=== PATIENT | female | born 1940 | race Caucasian/White ===

== ENCOUNTER → 2016-03-23 | Outpatient (CLI) | payer BC ==
[~2016-03-23] MED LIST: ASPI81TA28 PO; ASPI81TA57 PO; BECL0.072 INH; BRL90 PO; CETI10TA84 PO; CHOL20005 PO; CHOL20007 PO; CIPR-255 PO; COEN1CAP17 PO; COEN1CAP7 PO; COEN400C3; CZR25 PO; DEXT30TA7 PO; EZET10TA66 PO; GING1CAP2 PO; LEVO25TA PO; LEVO25TA5 PO; LEVO50TA6 PO; LISI-729 PO; LOSA1TAB PO; METO1TAB31 PO; METO25TA56 PO; METR-162 PO; MISC1TAB34 PO; NRN100 PO; NTRGSL/4 UT; NUTRTAB40; NUTRTAB40 PO; OMEG10007 PO; OMEG12006 PO; OMEP20CA9 PO; ONDA4TAB10 SL; POLY335019 PO; PRLSR20 PO; PRM/3 PO; RANI300C PO; SYMIN160 INH; TPRSR/25 PO; [UNRECOGNIZED DRUG - OTHER] PO; instaflex; instaflex PO
[2016-03-23 18:05] LABS: CHOLESTEROL/HDL RATIO 4.3; THYROID STIMULATING HORMONE 1.03 uIu/ml (0.300-4.500)
== END | disposition home or self-care (01) ==
LOC: C.LABBC 13:05
PROVIDERS: ATTEND Internal Medicine Geriatric Medicine
DX: I25.10 Atherosclerotic heart disease of native coronary artery without angina pectoris (principal); E03.9 Hypothyroidism, unspecified

== ENCOUNTER 2016-04-01 05:35 | Observation (INO) | payer BC ==
[~2016-04-01] VITALS: Ht 162.6 cm; Wt 88.5 kg
[~2016-04-01 05:35] MED LIST changes: -ASPI81TA28 PO; -CHOL20005 PO; -CIPR-255 PO; -COEN1CAP17 PO; -COEN400C3; -CZR25 PO; -EZET10TA66 PO; -GING1CAP2 PO; -LEVO25TA5 PO; -LEVO50TA6 PO; -LOSA1TAB PO; -METO1TAB31 PO; -METR-162 PO; -MISC1TAB34 PO; -NRN100 PO; -NTRGSL/4 UT; -NUTRTAB40; -NUTRTAB40 PO; -OMEG12006 PO; -ONDA4TAB10 SL; -POLY335019 PO; -PRLSR20 PO; -RANI300C PO; -SYMIN160 INH; -TPRSR/25 PO; -[UNRECOGNIZED DRUG - OTHER] PO; -instaflex
[2016-04-01 05:56] LABS: BASO % 0.8 %; BASO ABS # 0.06 K/uL (0-0.2); COMPLETE YES; EOS % 4.8 %; HEMATOCRIT 35.2 % (37-47); IG% 0.3 %; LYMPH % 33.6 %; LYMPH ABS # 2.43 K/uL (1.2-3.4); MEAN CELL VOLUME 82.6 fL (80-100); MEAN CORPUSCULAR HEMOGLOBIN 26.8 pg (25-34); MEAN CORPUSCULAR HGB CONC 32.4 g/dl (32-36); MEAN PLATELET VOLUME 9.7 fL (7.4-10.4); MONO % 9.3 %; NEUT % 51.2 %; PLATELET COUNT 264 K/uL (130-400); RED BLOOD COUNT 4.26 M/uL (4.2-5.4); WHITE BLOOD COUNT 7.23 K/uL (4.8-10.8)
[2016-04-01] MEDS ORDERED: COEN1CAP17 PO (05:56)
[2016-04-01] MEDS ORDERED: CZR25 PO (05:59)
[2016-04-01] MEDS ORDERED: LEVO50TA6 PO (05:59)
[2016-04-01] MEDS ORDERED: RANI300C PO (06:01)
[2016-04-01] MEDS ORDERED: TPRSR/25 PO (06:01)
[2016-04-01] MEDS ORDERED: EZET10TA66 PO (06:02)
[2016-04-01] MEDS ORDERED: NTRGSL/4 UT (06:03)
[2016-04-01] MEDS ORDERED: CHOL20007 PO (06:04)
[2016-04-01] MEDS ORDERED: NRN100 PO (06:06)
[2016-04-01] MEDS ORDERED: POLY335019 PO (06:06)
[2016-04-01] MEDS ORDERED: SYMIN160 INH (06:06)
[2016-04-01 06:10] LABS: BLOOD UREA NITROGEN 19 mg/dl (7-18); CALCIUM 8.9 mg/dl (8.5-10.1); CARBON DIOXIDE 26 mmol/L (21-32); CHLORIDE 108 mmol/L (98-107); GLUCOSE 101 mg/dl (70-99); POTASSIUM 3.6 mmol/L (3.5-5.1); SODIUM 143 mmol/L (136-145)
[2016-04-01 06:14] LABS: CKMB/CK RATIO 0.9 (0-3.0)
--- NOTE | 2016-04-01 06:54 | EMERGENCY ROOM VISIT NOTE ---
History Report prepared by Annibpapito: Wayne Hairston Under the Supervision of: Dr. Clyde Starkey M.D. First contact with patient: 05:36 Chief Complaint: CHEST PAIN Stated Complaint: CHEST PAIN History of Present Illness The patient is a 75 year old female who presents to the Emergency Room by EMS with complaints of resolved chest pain beginning shortly prior to arrival. Per nursing staff, the patient woke up from her sleep with a "heaviness" in her sternum area. The patient has a history of similar chest pain occurring with her previous heart attack. Her previous heart attack occurred about six months ago. She was given aspirin and nitroglycerin en route which improved her symptoms. The patient denies any heart palpitations, black or bloody stool, or SOB. She denies any recent injuries. She states that she may have passed out from her pain as well. Source of History: patient, nursing staff Onset: Shortly prior to arrival Position: chest (sternal area) Quality: other ("heaviness") Timing: resolved Modifying Factors (Relieving): other (nitroglycerin) Associated Symptoms: No SOB, No hematochezia, No melena Note: The patient denies any heart palpitations. Review of Systems See HPI for pertinent positives & negatives. A total of 10 systems reviewed and were otherwise negative. Past Medical & Surgical Medical Problems: (1) Acute bronchitis (2) Herpes Zoster Nos (3) Hyperlipidemia Nec/Nos (4) Hypertension Nos (5) Hypothyroidism Nos (6) NSTEMI (non-ST elevated myocardial infarction) Family History No pertinent family history stated. Social History Smoking Status: Never Smoker Alcohol Use: none Marital Status: , in relationship Occupation Status: retired Current/Historical Medications Scheduled Budesonide/Formoterol Fumarate (Symbicort 160/4.5 Inhaler ), 2 PUFFS INH BID Cholecalciferol (Vitamin D3), 2,000 UNIT PO BID Coenzyme Q10 (Ubidecarenone) (Co Q 10), 100 MG PO BID Ezetimibe (Ezetimibe), 10 MG PO DAILY Fish Oil ([place]-3), 1,000 MG PO QAM Gabapentin (Gabapentin), 100 MG PO HS Levothyroxine Sodium (Levothyroxine Sodium), 50 MG PO QAM Losartan Potassium (Losartan Potassium), 25 MG PO QAM Metoprolol Succinate (Metoprolol Succinate ER), 25 MG PO DAILY Polyethylene Glycol 3350 (Miralax), 17 GM PO DAILY Ranitidine Hcl (Ranitidine Hcl), 300 MG PO BID Ticagrelor (Brilinta), 90 MG PO BID Scheduled PRN Nitroglycerin (Nitrostat), 0.4 MG UT UD PRN for Chest Pain Allergies Coded Allergies: Clarithromycin (Verified Allergy, Severe, NAUSEA, 04/01/16) Iodinated Diagnostic Agents (Verified Allergy, Unknown, ., 04/01/16) Statins (Verified Allergy, Unknown, UNSURE, 04/01/16) Physical Exam Vital Signs Date Time Temp Pulse Resp B/P Pulse Ox O2 Delivery O2 Flow Rate FiO2 04/01/16 07:16 61 04/01/16 06:47 59 18 108/49 99 Room Air 04/01/16 06:27 60 18 120/63 100 Room Air 04/01/16 05:42 63 04/01/16 05:35 Room Air 04/01/16 05:35 36.4 64 20 115/64 96 Room Air Physical Exam GENERAL: Patient is well appearing and in no acute distress. HEENT: No acute trauma, normocephalic atraumatic, mucous membranes moist, no nasal congestion, no scleral icterus. NECK: No stridor, no adenopathy, no meningismus, trachea is midline. LUNGS: No dyspnea. Clear to auscultation and equal bilaterally. No wheeze, no rhonchi. HEART: Regular rate and rhythm. No murmurs, rubs, gallops appreciated. ABDOMEN: Soft, nontender, bowel sounds positive, no masses appreciated, no peritonitis. BACK: No midline tenderness, no CVA tenderness EXTREMITIES: Normal motion all extremities, no cyanosis, no edema. NEUROLOGIC: Alert and oriented, no acute motor or sensory deficits, no focal weakness, cranial nerves grossly intact. SKIN: No rash, no jaundice, no diaphoresis. Medical Decision & Procedures ER Provider Diagnostic Interpretation: X ray results are stated below per my interpretation: Chest: 1 view: No infiltrate, no effusion, normal cardiac border. Unchanged from previous. CT results per statrad and my review. CT HEAD: No acute intracranial abnormality. Tiny fluid level in the right maxillary sinus. Mastoid air cells are clear. Laboratory Results 04/01/16 05:07 Red Blood Count 4.26, Mean Corpuscular Volume 82.6, Mean Corpuscular Hemoglobin 26.8, Mean Corpuscular Hemoglobin Concent 32.4, Mean Platelet Volume 9.7, Neutrophils (%) (Auto) 51.2, Lymphocytes (%) (Auto) 33.6, Monocytes (%) (Auto) 9.3, Eosinophils (%) (Auto) 4.8, Basophils (%) (Auto) 0.8, Neutrophils # (Auto) 3.70, Lymphocytes # (Auto) 2.43, Monocytes # (Auto) 0.67, Eosinophils # (Auto) 0.35, Basophils # (Auto) 0.06 04/01/16 05:07 Test 04/01/16 05:07 White Blood Count 7.23 K/uL (4.8-10.8) Red Blood Count 4.26 M/uL (4.2-5.4) Hemoglobin 11.4 g/dL (12.0-16.0) Hematocrit 35.2 % (37-47) Mean Corpuscular Volume 82.6 fL (80-100) Mean Corpuscular Hemoglobin 26.8 pg (25-34) Mean Corpuscular Hemoglobin Concent 32.4 g/dl (32-36) Platelet Count 264 K/uL (130-400) Mean Platelet Volume 9.7 fL (7.4-10.4) Neutrophils (%) (Auto) 51.2 % Lymphocytes (%) (Auto) 33.6 % Monocytes (%) (Auto) 9.3 % Eosinophils (%) (Auto) 4.8 % Basophils (%) (Auto) 0.8 % Neutrophils # (Auto) 3.70 K/uL (1.4-6.5) Lymphocytes # (Auto) 2.43 K/uL (1.2-3.4) Monocytes # (Auto) 0.67 K/uL (0.11-0.59) Eosinophils # (Auto) 0.35 K/uL (0-0.5) Basophils # (Auto) 0.06 K/uL (0-0.2) RDW Standard Deviation 45.1 fL (36.4-46.3) RDW Coefficient of Variation 15.0 % (11.5-14.5) Immature Granulocyte % (Auto) 0.3 % Immature Granulocyte # (Auto) 0.02 K/uL (0.00-0.02) Anion Gap 9.0 mmol/L (3-11) Est Creatinine Clear Calc Drug Dose 46.1 ml/min Estimated GFR () 56.1 Estimated GFR (Non- 48.4 BUN/Creatinine Ratio 17.0 (10-20) Calcium Level 8.9 mg/dl (8.5-10.1) Total Creatine Kinase 55 U/L (26-192) Creatine Kinase MB 0.5 ng/ml (0.5-3.6) Creatine Kinase MB Ratio 0.9 (0-3.0) Troponin I < 0.015 ng/ml (0-0.045) ECG Indication: chest pain Rate (beats per minute): 58 Rhythm: sinus bradycardia Findings: no acute ischemic change, no ectopy ED Course 0537: The patient was evaluated in room B7. A complete history and physical exam was performed. 0603: I reassessed the patient. She is complaining of a mild headache. We discussed the prospect of getting a CT and she verbalized agreement. 0715: Upon reevaluation, the patient is resting comfortably. Discussed results and treatment plan with the patient. She verbalized understanding and agreement with the treatment plan. The patient will be evaluated for further management. Medical Decision Differential: Cardiac Ischemia (STEMI, NSTEMI, Unstable Angina, etc), Aortic Dissection, Arrhythmia, Pulmonary Embolism, Pneumonia, Pneumothorax, MSK, Infectious, Pericarditis/Myocarditis, Esophageal Rupture, Gastrointestinal, amongst other pathologies entertained. 75 yr old female with history of cardiac stents last summer for NE arrives following episode of chest pressure and brief syncopal event. Symptoms resolved by arrival after SLNTG and ASA. She is feeling well currently without further symptoms. CXR looks OK. CT head negative. EKG looks good. Trop negative. Given high cardiac risk factors will need cardiac rule out. Stable and in no distress throughout ED stay. No evidence of PE, dissection, gi cause , infection, nor other acute cause. Consults Time Called: 704 Consulting Physician: Citlalli Collins Physician Hospitalist Returned Call: 0715 Discussed the patient's case. The patient will be evaluated for further treatment and disposition. Impression Primary Impression: Substernal precordial chest pain Additional Impressions: History of NE (myocardial infarction) Syncope Scribe Attestation The scribe's documentation has been prepared under my direction and personally reviewed by me in its entirety. I confirm that the note above accurately reflects all work, treatment, procedures, and medical decision making performed by me. Departure Information Dispostion Being Evaluated By Hospitalist Referrals Murali Kolb M.D. (PCP) Patient Instructions My [facility] Problem Qualifiers Additional Impressions: Syncope Syncope type: unspecified Qualified Codes: R55 - Syncope and collapse
--- NOTE | 2016-04-01 07:04 | DIAGNOSTIC IMAGING REPORT ---
CT SCAN OF THE BRAIN WITHOUT IV CONTRAST CLINICAL HISTORY: Syncope. COMPARISON STUDY: CT of the brain dated 05/28/2007. TECHNIQUE: Unenhanced axial CT scan of the brain is performed from the vertex to the skull base. CT DOSE: 537.48 mGy.cm FINDINGS: Brain parenchyma: There are age-related involutional changes noting mild subcortical and periventricular microangiopathic change. There is no hemorrhage, mass effect, or evidence of acute territorial ischemia by CT criteria. Castillo-white matter is preserved. No extra-axial fluid collection is seen. Ventricles, sulci, cisterns: Prominent secondary to involutional change. Intracranial vasculature: There is atherosclerotic calcification of the cavernous carotid arteries. Calvarium: The skeletal structures are osteopenic. No depressed calvarial fracture is seen. Sinuses and mastoids: There is evidence of previous paranasal sinus surgery. Mucosal thickening is present within the maxillary antra, noting an air-fluid level in the right. There is also fluid within the sphenoid sinuses. Trace mucosal thickening seen within the ethmoid resection cavity. The mastoid air cells are well pneumatized. Orbits: The bony orbits are grossly intact. IMPRESSION: 1. There is no hemorrhage, mass effect, or evidence of acute territorial ischemia by CT criteria. 2. Paranasal sinus disease as above. Electronically signed by: Velasquez Escobar M.D. 04/01/2016 7:03 AM Dictated Date/Time: 04/01/2016 7:01 AM
--- NOTE | 2016-04-01 07:06 | DIAGNOSTIC IMAGING REPORT ---
SINGLE VIEW CHEST CLINICAL HISTORY: Atypical chest pain. FINDINGS: An AP, portable, upright chest radiograph is compared to study dated 11/12/2015 and correlated with chest CT dated 05/23/2014. The examination is degraded by portable technique, apical lordotic positioning, and patient rotation. The heart is mildly enlarged. The pulmonary vasculature is noncongested. Mild atherosclerotic calcification is noted in the thoracic aorta. A hiatal hernia is observed. There is chronic interstitial thickening and bibasilar atelectasis. No airspace consolidation, large pleural effusion, or pneumothorax is seen. The skeletal structures are osteopenic. Degenerative change and scoliosis are noted in the thoracic spine. IMPRESSION: Cardiomegaly with no acute cardiopulmonary abnormality. Electronically signed by: Velasquez Escobar M.D. 04/01/2016 7:04 AM Dictated Date/Time: 04/01/2016 7:03 AM
[2016-04-01 07:26] VITALS: O2SAT 99; Ht 162.6 cm; Wt 88.5 kg
[2016-04-01] MEDS ORDERED: ACETAMINOPHEN 325 MG TAB PO PRN (07:30)
[2016-04-01] MEDS ORDERED: ONDANSETRON INJ 2 MG/ML 2 ML VIAL IV PRN (07:30)
[2016-04-01] MEDS ORDERED: POLYETHYLENE (MIRALAX) 17 GM PACK PO PRN (07:30)
[2016-04-01] MEDS ORDERED: NITROGLYCERIN 0.4 MG SL PER TAB CHARGE SL PRN (07:30)
[2016-04-01] MEDS ORDERED: MAGNESIUM HYDROXIDE SUSP 30 ML UDC PO PRN (07:30)
[2016-04-01] MEDS ORDERED: ALUMINUM/MAGNESIUM/SIMETH (MAALOX MAX) 30 ML UDC PO PRN (07:30)
[2016-04-01 07:55] VITALS: O2SAT 99
--- NOTE | 2016-04-01 08:13 | History and Physical ---
History & Physical Date & Time of Service: Apr 01, 2016 at 07:55 Chief Complaint: Chest Pain Primary Care Physician: Murali Kolb M.D. History of Present Illness Source: patient, family, hospital records This patient is a 75-year-old female that presents the emergency department complaining of a chest heaviness that started around 3 AM this morning. It has been fairly constant. She notes that it radiates to both of her shoulders. Currently, the patient is having discomfort in her left shoulder. She does note occasional shortness of breath. During the night when she was having pain , she also notes diffuse sweating and dizziness. She also reports having a short syncopal episode where she slumped over at the table. This was witnessed by the . She did not actually fall. No injuries were sustained. The dizziness has subsided. The patient has a history of coronary artery disease and had 1 stent placed in September 2015 at [facility]. She follows with Dr. Fabian locally. Past Medical/Surgical History Medical Problems: Coronary artery disease OK in 09/2015-1 stent placed (1) Acute bronchitis Status: Resolved (2) Herpes Zoster Nos Status: Chronic (3) Hyperlipidemia Nec/Nos Status: Chronic (4) Hypertension Nos Status: Chronic (5) Hypothyroidism Nos Status: Chronic Family History FH: cancer FH: heart disease FH: stroke FATHER Hypertension Social History Smoking Status: Never Smoker Alcohol Use: none Marital Status: , in relationship Housing status: lives with significant other Occupational Status: retired Immunizations History of Influenza Vaccine: N/A History of Tetanus Vaccine?: Unknown History of Pneumococcal: No History of Hepatitis B Vaccine: No Multi-Drug Resistant Organisms History of MDRO: No Allergies Coded Allergies: Clarithromycin (Verified Allergy, Severe, NAUSEA, 04/01/16) Iodinated Diagnostic Agents (Verified Allergy, Unknown, ., 04/01/16) Statins (Verified Allergy, Unknown, UNSURE, 04/01/16) Home Medications Scheduled Budesonide/Formoterol Fumarate (Symbicort 160/4.5 Inhaler ), 2 PUFFS INH BID Cholecalciferol (Vitamin D3), 2,000 UNIT PO BID Coenzyme Q10 (Ubidecarenone) (Co Q 10), 100 MG PO BID Ezetimibe (Ezetimibe), 10 MG PO DAILY Fish Oil ([place]-3), 1,000 MG PO QAM Gabapentin (Gabapentin), 100 MG PO HS Levothyroxine Sodium (Levothyroxine Sodium), 50 MG PO QAM Losartan Potassium (Losartan Potassium), 25 MG PO QAM Metoprolol Succinate (Metoprolol Succinate ER), 25 MG PO DAILY Polyethylene Glycol 3350 (Miralax), 17 GM PO DAILY Ranitidine Hcl (Ranitidine Hcl), 300 MG PO BID Ticagrelor (Brilinta), 90 MG PO BID Scheduled PRN Nitroglycerin (Nitrostat), 0.4 MG UT UD PRN for Chest Pain Review of Systems 10 system review performed and negative unless noted in HPI or below Physical Exam Vital Signs Date Time Temp Pulse Resp B/P Pulse Ox O2 Delivery O2 Flow Rate FiO2 04/01/16 07:26 99 Room Air 04/01/16 07:16 61 04/01/16 06:47 59 18 108/49 99 Room Air 04/01/16 06:27 60 18 120/63 100 Room Air 04/01/16 05:42 63 04/01/16 05:35 Room Air 04/01/16 05:35 36.4 64 20 115/64 96 Room Air General Appearance: no apparent distress Head: normocephalic Eyes: EOMI Neck: no JVD Respiratory/Chest: lungs clear Cardiovascular: + bradycardia Abdomen/GI: normal bowel sounds, non tender, soft Extremities/Musculoskelatal: no calf tenderness, no pedal edema Neurologic/Psych: no motor/sensory deficits, oriented x 3 Skin: no rash Diagnostics Laboratory Results Results Past 24 Hours Test 04/01/16 05:07 Range/Units White Blood Count 7.23 4.8-10.8 K/uL Red Blood Count 4.26 4.2-5.4 M/uL Hemoglobin 11.4 12.0-16.0 g/dL Hematocrit 35.2 37-47 % Mean Corpuscular Volume 82.6 80-100 fL Mean Corpuscular Hemoglobin 26.8 25-34 pg Mean Corpuscular Hemoglobin Concent 32.4 32-36 g/dl Platelet Count 264 130-400 K/uL Mean Platelet Volume 9.7 7.4-10.4 fL Neutrophils (%) (Auto) 51.2 % Lymphocytes (%) (Auto) 33.6 % Monocytes (%) (Auto) 9.3 % Eosinophils (%) (Auto) 4.8 % Basophils (%) (Auto) 0.8 % Neutrophils # (Auto) 3.70 1.4-6.5 K/uL Lymphocytes # (Auto) 2.43 1.2-3.4 K/uL Monocytes # (Auto) 0.67 0.11-0.59 K/uL Eosinophils # (Auto) 0.35 0-0.5 K/uL Basophils # (Auto) 0.06 0-0.2 K/uL RDW Standard Deviation 45.1 36.4-46.3 fL RDW Coefficient of Variation 15.0 11.5-14.5 % Immature Granulocyte % (Auto) 0.3 % Immature Granulocyte # (Auto) 0.02 0.00-0.02 K/uL Sodium Level 143 136-145 mmol/L Potassium Level 3.6 3.5-5.1 mmol/L Chloride Level 108 98-107 mmol/L Carbon Dioxide Level 26 21-32 mmol/L Anion Gap 9.0 3-11 mmol/L Blood Urea Nitrogen 19 7-18 mg/dl Creatinine 1.10 0.60-1.20 mg/dl Est Creatinine Clear Calc Drug Dose 46.1 ml/min Estimated GFR () 56.1 Estimated GFR (Non- 48.4 BUN/Creatinine Ratio 17.0 10-20 Random Glucose 101 70-99 mg/dl Calcium Level 8.9 8.5-10.1 mg/dl Total Creatine Kinase 55 26-192 U/L Creatine Kinase MB 0.5 0.5-3.6 ng/ml Creatine Kinase MB Ratio 0.9 0-3.0 Troponin I < 0.015 0-0.045 ng/ml Diagnostic Radiology Patient Name: DAVI MONTELONGO Unit Number: [id number] Dictated: 04/01/16700 Transcribed: 04/01/16700 EV Printed Date/Time: [~ rep prt dt]/[~ rep prt tm] [~ rep ct labl] - [~ rep ct ivnm] [facility] [place] [address] Dictated: 04/01/16700 Transcribed: 04/01/16700 EV Printed Date/Time: [~ rep prt dt]/[~ rep prt tm] [~ rep ct labl] - [~ rep ct ivnm] Patient: DAVI MONTELONGO Address1: [address] [facility] Rec: [id number] Address2: [facility] [address] Acct ID: [id number] [facility] Zip: [place] [address] Date: 1940 Sex: F Room/Bed: Ref Phy: Murali Kolb M.D. SC: SOFY Att Phy: Report #: [id number] Inga Phy: Murali Kolb M.D. Test: HWO Admit Phy: Simulation Analyst: ALISIA Interpreting Phy: Velasquez Escobar M.D. Diagnosis: CHEST PAIN Ordering Phy: Clyde Starkey M.D. Service Date: 04/01/16 Admit Date: 04/01/16 MNE: [id number] CONF: DICTATED BY: Velasquez Escobar M.D.]] CC: Murali Kolb M.D. McKinley, Daniel F., M.D. Endcc: [~ rep ct add3]] CT SCAN OF THE BRAIN WITHOUT IV CONTRAST CLINICAL HISTORY: Syncope. COMPARISON STUDY: CT of the brain dated 05/28/2007. TECHNIQUE: Unenhanced axial CT scan of the brain is performed from the vertex to the skull base. CT DOSE: 537.48 mGy.cm FINDINGS: Brain parenchyma: There are age-related involutional changes noting mild subcortical and periventricular microangiopathic change. There is no hemorrhage, mass effect, or evidence of acute territorial ischemia by CT criteria. Castillo-white matter is preserved. No extra-axial fluid collection is seen. Ventricles, sulci, cisterns: Prominent secondary to involutional change. Intracranial vasculature: There is atherosclerotic calcification of the cavernous carotid arteries. Calvarium: The skeletal structures are osteopenic. No depressed calvarial fracture is seen. Sinuses and mastoids: There is evidence of previous paranasal sinus surgery. Mucosal thickening is present within the maxillary antra, noting an air-fluid level in the right. There is also fluid within the sphenoid sinuses. Trace mucosal thickening seen within the ethmoid resection cavity. The mastoid air cells are well pneumatized. Orbits: The bony orbits are grossly intact. IMPRESSION: 1. There is no hemorrhage, mass effect, or evidence of acute territorial ischemia by CT criteria. 2. Paranasal sinus disease as above. Electronically signed by: Velsaquez Escobar M.D. 04/01/2016 7:03 AM Dictated Date/Time: 04/01/2016 7:01 AM The status of this report is Signed. Draft = Not yet reviewed or approved by Radiologist. Signed = Reviewed and approved by Radiologist. <AttendingPhy></AttendingPhy> <FamilyPhy>Murali Kolb M.D.</FamilyPhy> < PrimaryPhy>Murali Kolb M.D.</PrimaryPhy> <UnitNumber>[id number]</UnitNumber > <VisitNumber>[id number]</VisitNumber> <PatientName>DAVI MONTELONGO</ PatientName> <DateOfBirth>1940</DateOfBirth> <Location>C.EDB</Location> < ServiceDate>04/01/16</ServiceDate> <MNE>ESINDI</MNE> <OrderingPhy>Clyde Starkey M.D.</OrderingPhy> <OrderingPhyMNE>f rep ord dr shell</OrderingPhyMNE> < DictatingPhyMNE>f rep dict dr shell</DictatingPhyMNE> <CCListMNE>f rep ct mne</ CCListMNE> <AdmittingPhyMNE>f pt admit dr shell</AdmittingPhyMNE> <AttendingPhyMNE >f pt attend dr shell</AttendingPhyMNE> <ConsultingPhyMNE>f pt consult dr shell</ConsultingPhyMNE> <FamilyPhyMNE>f pt fam dr shell</FamilyPhyMNE> <OtherPhyMNE>f pt other dr shell</OtherPhyMNE> < PrimaryPhyMNE>f pt prim care dr shell</PrimaryPhyMNE> <ReferringPhyMNE>f pt referring dr shell</ReferringPhyMNE> Patient Name: DAVI MONTELONGO Unit Number: [id number] Dictated: 04/01/16702 Transcribed: 04/01/16702 EV Printed Date/Time: [~ rep prt dt]/[~ rep prt tm] [~ rep ct labl] - [~ rep ct ivnm] [facility] [place] [address] Dictated: 04/01/16702 Transcribed: 04/01/16702 EV Printed Date/Time: [~ rep prt dt]/[~ rep prt tm] [~ rep ct labl] - [~ rep ct ivnm] Patient: DAVI MONTELONGO Address1: [address] [place] [address] Rec: [id number] Address2: [place] [address] Acct ID: [id number] [facility] Zip: [place] [address] Date: 1940 Sex: F Room/Bed: Ref Phy: Murali Kolb M.D. SC: SOFY Att Phy: Report #: [id number] Inga Phy: Murali Kolb M.D. Test: CXR1P Admit Phy: Simulation Analyst: TREH Interpreting Phy: Velasquez Escobar M.D. Diagnosis: CHEST PAIN Ordering Phy: Clyde Starkey M.D. Service Date: 04/01/16 Admit Date: 04/01/16 MNE: [id number] CONF: DICTATED BY: Velasquez Escobar M.D.]] CC: Murali Kolb M.D. McKinley, Daniel F., M.D. Endcc: [~ rep ct add3]] SINGLE VIEW CHEST CLINICAL HISTORY: Atypical chest pain. FINDINGS: An AP, portable, upright chest radiograph is compared to study dated 11/12/2015 and correlated with chest CT dated 05/23/2014. The examination is degraded by portable technique, apical lordotic positioning, and patient rotation. The heart is mildly enlarged. The pulmonary vasculature is noncongested. Mild atherosclerotic calcification is noted in the thoracic aorta. A hiatal hernia is observed. There is chronic interstitial thickening and bibasilar atelectasis. No airspace consolidation, large pleural effusion, or pneumothorax is seen. The skeletal structures are osteopenic. Degenerative change and scoliosis are noted in the thoracic spine. IMPRESSION: Cardiomegaly with no acute cardiopulmonary abnormality. Electronically signed by: Velasquez Escobar M.D. 04/01/2016 7:04 AM Dictated Date/Time: 04/01/2016 7:03 AM The status of this report is Signed. Draft = Not yet reviewed or approved by Radiologist. Signed = Reviewed and approved by Radiologist. <AttendingPhy></AttendingPhy> <FamilyPhy>Murali Kolb M.D.</FamilyPhy> < PrimaryPhy>Murali Kolb M.D.</PrimaryPhy> <UnitNumber>[id number]</UnitNumber > <VisitNumber>[id number]</VisitNumber> <PatientName>JAYDADAVI</ PatientName> <DateOfBirth>1940</DateOfBirth> <Location>C.EDB</Location> < ServiceDate>04/01/16</ServiceDate> <MNE>ESINDI</MNE> <OrderingPhy>Clyde Starkey M.D.</OrderingPhy> <OrderingPhyMNE>f rep ord dr shell</OrderingPhyMNE> < DictatingPhyMNE>f rep dict dr shell</DictatingPhyMNE> <CCListMNE>f rep ct suleman</ CCListMNE> <AdmittingPhyMNE>f pt admit dr shell</AdmittingPhyMNE> <AttendingPhyMNE >f pt attend dr shell</AttendingPhyMNE> <ConsultingPhyMNE>f pt consult dr shell</ConsultingPhyMNE> <FamilyPhyMNE>f pt fam dr shell</FamilyPhyMNE> <OtherPhyMNE>f pt other dr shell</OtherPhyMNE> < PrimaryPhyMNE>f pt prim care dr shell</PrimaryPhyMNE> <ReferringPhyMNE>f pt referring dr shell</ReferringPhyMNE> EKG Sinus bradycardia 58 bpm acute ischemic changes noted Impression Assessment and Plan 75-year-old female with a past medical history of coronary artery disease and OK comes emergency department complaining of a chest heaviness with a brief syncopal episode-suspicious for cardiac source chest pain -observe in telemetry -follow cardiac enzymes every 8 hr x 2 -daily EKG -EKG with worsening pain -continue ASA -continue nitroglycerin SL for CP -stress echo -Dr. Fabian aware and agrees to see pt -Continue medical management with Toprol-XL 25 mg BID, Brilinta 90 mg BID, losartan 25 mg daily and Zetia 10 mg daily HTN -as noted above GERD -continue zantac 300 mg BID Hypothyroidism -Synthroid 25 mcg DVT prophylaxis -Lovenox 40 mg subQ daily -TEDS, SCDs CODE STATUS -LEVEL I FULL CODE Level of Care Telemetry Advanced Directives Existing Living Will: No Existing Power of Home Energy Rater: No Resuscitation Status FULL RESUSCITATION VTE Prophylaxis VTE Risk Assessment Done? Y/N: Yes Risk Level: Moderate Given or contraindicated: Enoxaparin (Lovenox)SQ, T.E.D. Stockings, SCD's
[2016-04-01] MEDS ORDERED: COEN400C3 (08:19)
[2016-04-01] MEDS ORDERED: instaflex (08:19)
[2016-04-01] MEDS ORDERED: MISC1TAB34 PO (08:19)
[2016-04-01] MEDS ORDERED: NUTRTAB40 (08:19)
[2016-04-01] MEDS ORDERED: IV FLUIDS COMPLETED PRN (08:30)
[2016-04-01 08:41] VITALS: BP 144/74; PULSE 65; TEMP 36.4; O2SAT 98
[2016-04-01] MEDS ORDERED: TICAGRELOR 90 MG TAB PO SCH (09:00)
[2016-04-01] MEDS ORDERED: ASPIRIN 81 MG ECTAB PO SCH (09:00)
[2016-04-01] MEDS ORDERED: METOPROLOL SUCC 25MG EXT REL TAB PO SCH (09:00)
[2016-04-01] MEDS ORDERED: RANITIDINE HCL 150 MG TAB PO SCH (09:00)
[2016-04-01] MEDS ORDERED: NON-FORMULARY MEDICATION (Ranitidine Hcl 300 MG) PO SCH (09:00)
[2016-04-01] MEDS ORDERED: LOSARTAN POTASSIUM 25 MG TAB PO SCH (09:00)
--- NOTE | 2016-04-01 10:58 | CARDIOLOGY CONSULTATION ---
DATE OF CONSULTATION: 04/01/2016 REQUESTING: Raquel Sandoval. TRAVEL AGENCY MANAGER: Nicolás Fabian DO, [facility]. REASON FOR CONSULTATION: Known coronary artery disease, chest discomfort. Dear Ms. Sandoval: Thank you for requesting cardiology consultation on Yolie with regard to her history of coronary artery disease, an episode last evening where she had chest discomfort which radiated into her back. She notes over the last week she has felt fine. She has been able to do normal activities without any limitation. She has some mild shortness of breath climbing stairs but that is not any different than it was after her heart attack in September 2015. She notes they have about 13 steps to climb in order to get to the first floor of their home and she does that every day without any difficulties, denying any chest pain, and they were recently shopping and she was walking without any issues. She does have a history of esophageal reflux disease. She woke up about 3:00 a.m. describing chest discomfort, not so much of a heaviness, more of a tightness. She felt like she had a bubble in her chest, like she needed to burp and she was unable to. She did take some [id number] Tums, had a small burp with some improvement. Given the concern that it may be cardiac in etiology, she took 1 sublingual nitroglycerin with only mild improvement and then she was sitting at the dining room table and it sounds like she took 2 additional nitroglycerins in a pretty quick period of time and then she actually had a syncopal episode for 30 seconds. She came by ambulance to the Emergency Room. Her first troponin is negative. Her EKG is normal. She currently has no discomfort, whatsoever, and looks quite comfortable. She denies any further lightheadedness or dizziness at this point, lower extremity edema, palpitations. She does complain of some discomfort, not currently, that arises from her neck and radiates all the way down her left arm to her pinky. In questioning her, her last meal was approximately 4:00 p.m. She denies eating late last night or having a spicy meal. She has had chronic reflux-like symptoms. The head of her bed is elevated. She has been using Zantac and trying to avoid proton pump inhibitors due to concerns of side effects. The rest of review of systems otherwise negative. PAST MEDICAL HISTORY: 1. Small non-ST elevation myocardial infarction 09/2015. 2. Status post angioplasty and stenting of a high-grade mid LAD lesion with a drug-eluting stent 09/2015. 3. No evidence of significant RCA or circumflex or diagonal disease at the time of her catheterization. 4. Normal left ventricular systolic function. 5. Hypertension. 6. Hypothyroidism. 7. Allergies. 8. History of sinusitis. 9. GERD. 10. History of TIA. 11. Intolerant of all statins, having tried simvastatin, atorvastatin, pravastatin, rosuvastatin. ALLERGIES: TO IVP DYE AND STATINS. MEDICATIONS: Reviewed in electronic medical record. She was recently started on Zetia 3 weeks ago and denies any significant myalgias or arthralgias. FAMILY HISTORY: Positive for premature heart disease. Her brother had at the age of 62 but had coronary artery disease in his 50s, another brother in his 80s from a heart attack, and another brother had a stroke at the age of 38. SOCIAL HISTORY: She denies any tobacco. She has a fiance who she spends much of her time with. She did have significant exposure to secondhand smoke. PHYSICAL EXAMINATION: GENERAL: She is awake, alert, oriented x3. She is in no acute distress. She is a well-appearing female, looks her stated age. VITAL SIGNS: Heart rate 64, respirations 18, blood pressure 136/77, 99% on room air. HEENNT: 2+ carotid upstrokes. No evidence of carotid bruits. Jugular venous pressure appeared normal. Sclerae anicteric. Hearing is normal. LUNGS: Clear to auscultation bilaterally. No rales, rhonchi or wheezing. HEART: Regular rate and rhythm. No appreciable murmurs, rubs or gallops. ABDOMEN: Soft, nontender, nondistended, positive bowel sounds. There is no epigastric discomfort. EXTREMITIES: No clubbing, cyanosis or edema. PSYCHIATRIC: Affect appeared appropriate. NEUROLOGIC: She is awake, alert and oriented x3. LABORATORY STUDIES: Sodium 143, potassium 3.6, BUN 19, creatinine 1.1. Normal CK-MB and normal troponin at 5:07 this morning. Her hemoglobin is 11.4, her platelet count is 264. Chest x-ray. No active disease. CT of her head, no acute bleed or stroke or mass effect. EKG: Sinus bradycardia, normal ECG, no acute ST-T changes. IMPRESSION: 1. Discomfort that awoke her from sleep with minimal to mild improvement with nitroglycerin but a sensation like she needed to burp. 2. Prior coronary artery disease with angioplasty and stenting 09/2015 to the mid left anterior descending artery without residual circumflex, right coronary artery or diagonal disease. 3. Negative first troponin with a normal EKG. As I discuss, I wonder if this is not GERD. Her syncopal episode was likely due to the fact that she took 3 sublingual nitroglycerins in a short period of time, veno dilated and then dropped her blood pressure. Her EKG is normal. First troponin is negative. I recommend repeating a troponin now which will be 6 hours after her symptoms started. If that troponin is negative, it is reassuring that this is not an acute coronary syndrome. In the interim, you can add to her Zantac low-dose proton pump inhibitor, either omeprazole or Protonix, and see how she does over the next couple of weeks. If she were to have recurrence of her symptoms or exertional symptoms or increasing shortness of breath, then stress testing would be warranted. If her troponin is positive, then we would need to consider repeat cardiac catheterization. I do not think there is a need for stress echo at this point, especially in light of the sensation of feeling like there was a bubble there and she needed to burp, and with a mild amount of burping, she had improvement in her symptoms. All this was discussed with the nursing staff as well as the patient and her fiance. Thank you for allowing us to participate in her care.
--- NOTE | 2016-04-01 11:10 | Medical Student: [facility] ---
Med Student History & Physical Date & Time of Service: Apr 01, 2016 at 10:52 Chief Complaint: Substernal Precordial Chest Pain Primary Care Physician: Murali Kolb M.D. History of Present Illness This is a 75 year old white female who presented to the ED with chest pain. The chest pain awoke her at 3am and was described as 'intense' radiating to the shoulders and felt like some type of squeezing/tightness. At this time she checked her bp and recalls that it read 158. She tried to go back to sleep but pain continued and she again got up and remeasured BP and encouraged her to take nitroglycerin. She also described being soaked in sweat and feeling short of breath. They called the ambulance and on the ambulance ride she was given sublingual nitroglycerin and aspring which relieved her symptoms, but caused her to faint. When she awoke she felt okay and did not have any chest pain. Patient has a recent significant history of an ND six months ago, which required stent placement at [facility]. She follows regularly with Dr. Francis. She otherwise does not have any other recent hospitalizations. She notes that this episode of chest pain felt more 'intense and hard' than the chest pain associated with her ND. She denies palpitations, CARVALHO, vision changes, nausea, vomiting, diarrhea. She denies any facial drooping, weakness, or confusion. At this time, she reports feeling well. Past Medical/Surgical History Chest pain History of ND HTN Hypothyroidism Social History Smoking Status: Never Smoker Alcohol Use: none Drug Use: none Marital Status: , in relationship Housing status: lives with significant other Occupational Status: retired Immunizations History of Influenza Vaccine: N/A History of Tetanus Vaccine?: Unknown History of Pneumococcal: No History of Hepatitis B Vaccine: No Allergies Coded Allergies: Iodinated Diagnostic Agents (Verified Allergy, Unknown, ., 04/01/16) Statins (Verified Allergy, Unknown, UNSURE, 04/01/16) Clarithromycin (Verified Adverse Reaction, Intermediate, NAUSEA, 04/01/16) Medications Budesonide/Formoterol Fumarate (Symbicort 160/4.5 Inhaler ), 2 PUFFS INH BID Cholecalciferol (Vitamin D3), 2,000 UNIT PO BID Coenzyme Q10 (Ubidecarenone) (Co Q-10 Maximum Strength) Fish Oil ([place]-3), 1,000 MG PO QAM Levothyroxine Sodium (Levothyroxine Sodium), 50 MG PO QAM Losartan Potassium (Losartan Potassium), 25 MG PO QAM Metoprolol Succinate (Metoprolol Succinate ER), 25 MG PO DAILY Misc Natural Products (Curcumax Pro), 2,000 MG PO DAILY Nutritional Supplements (Estroven), for hot flashes Ranitidine Hcl (Ranitidine Hcl), 300 MG PO BID Ticagrelor (Brilinta), 90 MG PO BID [instaflex] Review of Systems Constitutional: No chills, No fever, No sweats Eyes: No eye pain, No worsening of vision Respiratory: No cough, No sputum, No wheezing Cardiovascular: No PND, No chest pain, No edema, No orthopnea Abdomen: No diarrhea, No nausea, No pain, No vomiting Musculoskeletal: No joint pain Neurologic: No memory loss, No numbness/tingling, No paralysis, No vertigo, No weakness Hematologic / Lymphatic: No abnormal bleeding/bruising Physical Exam Vital Signs (24 Hours) Date Time Temp Pulse Resp B/P Pulse Ox O2 Delivery O2 Flow Rate FiO2 04/01/16 08:41 36.4 65 20 144/74 98 04/01/16 07:55 64 18 136/70 99 Room Air 04/01/16 07:26 99 Room Air 04/01/16 07:16 61 04/01/16 06:47 59 18 108/49 99 Room Air 04/01/16 06:27 60 18 120/63 100 Room Air 04/01/16 05:42 63 04/01/16 05:35 Room Air 04/01/16 05:35 36.4 64 20 115/64 96 Room Air General Appearance: WD/WN, no apparent distress Head: normocephalic, atraumatic Eyes: normal inspection Neck: supple Respiratory/Chest: chest non-tender, lungs clear, normal breath sounds, no respiratory distress, no accessory muscle use Cardiovascular: regular rate, rhythm, no edema, no gallop, no JVD, no murmur, normal peripheral pulses Abdomen/GI: normal bowel sounds, non tender, soft, no organomegaly Extremities/Musculoskelatal: normal inspection, no calf tenderness, normal capillary refill, no pedal edema Neurologic/Psych: no motor/sensory deficits, alert, normal mood/affect, normal reflexes, oriented x 3 Skin: normal color, warm/dry Lymphatic: no adenopathy Diagnostics Laboratory Results Results Past 24 Hours Test 04/01/16 05:07 04/01/16 09:40 Range/Units White Blood Count 7.23 4.8-10.8 K/uL Red Blood Count 4.26 4.2-5.4 M/uL Hemoglobin 11.4 12.0-16.0 g/dL Hematocrit 35.2 37-47 % Mean Corpuscular Volume 82.6 80-100 fL Mean Corpuscular Hemoglobin 26.8 25-34 pg Mean Corpuscular Hemoglobin Concent 32.4 32-36 g/dl Platelet Count 264 130-400 K/uL Mean Platelet Volume 9.7 7.4-10.4 fL Neutrophils (%) (Auto) 51.2 % Lymphocytes (%) (Auto) 33.6 % Monocytes (%) (Auto) 9.3 % Eosinophils (%) (Auto) 4.8 % Basophils (%) (Auto) 0.8 % Neutrophils # (Auto) 3.70 1.4-6.5 K/uL Lymphocytes # (Auto) 2.43 1.2-3.4 K/uL Monocytes # (Auto) 0.67 0.11-0.59 K/uL Eosinophils # (Auto) 0.35 0-0.5 K/uL Basophils # (Auto) 0.06 0-0.2 K/uL RDW Standard Deviation 45.1 36.4-46.3 fL RDW Coefficient of Variation 15.0 11.5-14.5 % Immature Granulocyte % (Auto) 0.3 % Immature Granulocyte # (Auto) 0.02 0.00-0.02 K/uL Sodium Level 143 136-145 mmol/L Potassium Level 3.6 3.5-5.1 mmol/L Chloride Level 108 98-107 mmol/L Carbon Dioxide Level 26 21-32 mmol/L Anion Gap 9.0 3-11 mmol/L Blood Urea Nitrogen 19 7-18 mg/dl Creatinine 1.10 0.60-1.20 mg/dl Est Creatinine Clear Calc Drug Dose 46.1 ml/min Estimated GFR () 56.1 Estimated GFR (Non- 48.4 BUN/Creatinine Ratio 17.0 10-20 Random Glucose 101 70-99 mg/dl Calcium Level 8.9 8.5-10.1 mg/dl Total Creatine Kinase 55 26-192 U/L Creatine Kinase MB 0.5 0.5-3.6 ng/ml Creatine Kinase MB Ratio 0.9 0-3.0 Troponin I < 0.015 < 0.015 0-0.045 ng/ml Diagnostic Radiology Head CT: -There is no hemorrhage, mass effect, or evidence of acute territorial ischemia by CT criteria. -Paranasal sinus disease noted CXR: -cardiomegaly -no acute cardiopulmonary findings EKG 58 bpm sinus bradycardia, no acute ischemic changes, no ectopic beats Impression Assessment and Plan This is a 75 year old female with pmh of recent ND who presents with chest pain for several hours that was relieved by sublingual nitroglycerin and aspirin. As of now she is stable without recurrence of chest pain and no other symptoms. Chest pain -Dr. Fabian spoke with patient and thinks she may be able to go home today. Does not think she needs stress test. Wishes to monitor troponin to determine if she will stay. -observe in telemetry -troponin x3 -repeat EKG -continue ASA -Continue Brilinta 90 mg BID -continue nitroglycerin sublingual prn for chest pain HTN -Toprol-XL 25 mg BID -losartan 25 mg daily Hyperlipidemia -Ezetimibe 10 mg daily GERD -continue zantac 300 mg BID Hypothyroidism -Synthroid 25 mcg Level of Care Telemetry Advanced Directives Existing Living Will: No Existing Power of Billing Typist: No Resuscitation Status FULL RESUSCITATION DVT Prophylaxis enoxaparin (Lovenox) SQ, T.E.D. stockings, SCDs
[2016-04-01] MEDS ORDERED: PRLSR20 PO (11:12)
--- NOTE | 2016-04-01 11:12 | Discharge Instructions ---
Discharge Instructions Admission Reason for Admission: Substernal Precordial Chest Pain Discharge Discharge Diagnosis / Problem: chest pain Discharge Goals Goal(s): Diagnostic testing Activity Recommendations Activity Limitations: resume your previous activity . Current Hospital Diet Patient's current hospital diet: AHA Diet (Heart Healthy) Discharge Diet Recommended Diet: AHA Diet (Heart Healthy) Pending Studies Studies pending at discharge: no Laboratory Results Lipid Panel Test 03/23/16 13:09 Range/Units Triglycerides Level 243 H 0-150 mg/dl Cholesterol Level 200 0-200 mg/dl HDL Cholesterol 47 mg/dl Cholesterol/HDL Ratio 4.3 LDL Cholesterol, Calculated 104 mg/dl Medical Emergencies . Who to Call and When: Medical Emergencies: If at any time you feel your situation is an emergency, please call 911 immediately. . Non-Emergent Contact Non-Emergency issues call your: Risk Lead . . "Provider Documentation" section prepared by Guillermo Tellez. VTE Core Measure Inpt VTE Proph given/why not?: Enoxaparin (Lovenox)JAMAL, T.EJacque Flores, SCD's
[2016-04-01 11:18] VITALS: BP 144/74; PULSE 65; TEMP 36.4; O2SAT 98
--- NOTE | 2016-04-01 16:06 | Discharge Summary ---
Discharge Summary Admission Date: Apr 01, 2016 at 07:21 Discharge Date: Apr 01, 2016 Discharge Disposition: Home Principal Diagnosis: chest pain Immunizations: Have You Had Influenza Vaccine: N/A History of Tetanus Vaccine?: Unknown History of Pneumococcal: No History of Hepatitis B Vaccine: No Consultations: Dr Fabian Medication Reconciliation New Medications: Omeprazole (Prilosec) 20 Mg Capcr 20 MG PO DAILY, #30 CAP Continued Medications: Budesonide/Formoterol Fumarate (Symbicort 160/4.5 Inhaler ) Aero 2 PUFFS INH BID, INHALER Cholecalciferol (Vitamin D3) 2,000 Unit Tab 2000 UNIT PO BID for 90 Days, #18 TAB 3 Refills Coenzyme Q10 (Ubidecarenone) (Co Q-10 Maximum Strength) 400 Mg Cap Fish Oil ([place]-3) 1 Ea Cap 1000 MG PO QAM Levothyroxine Sodium (Levothyroxine Sodium) 50 Mcg Tab 50 MG PO QAM Losartan Potassium (Losartan Potassium) 25 Mg Tab 25 MG PO QAM Metoprolol Succinate (Metoprolol Succinate ER) 25 Mg Tabcr 25 MG PO DAILY Misc Natural Products (Curcumax Pro) 1 Tab Tab 2000 MG PO DAILY Nutritional Supplements (Estroven) 1 Tab Tab PRN for hot flashes Ticagrelor (Brilinta) 90 Mg Tab 90 MG PO BID DO NOT SKIP [instaflex] () for joints Discontinued Medications: Ranitidine Hcl (Ranitidine Hcl) 300 Mg Cap 300 MG PO BID Discharge Exam no exam on discharge as pt left Hospital Course Pt here with chest pain history of CAD, negative ecg changes, after seeing Dr Fabian the pt told the nurse if repeat blood work is negative shes leaving, per DR Durbin note recommend treating GERD and follow up in his clinic pt did not wait aorund for me to see her, just left Total Time Spent: Less than 30 minutes This includes examination of the patient, discharge planning, medication reconciliation, and communication with other providers. Discharge Instructions Please refer to the electronic Patient Visit Report (Discharge Instructions) for additional information.
[2016-04-02] MEDS ORDERED: LEVOTHYROXINE 25 MCG TAB PO SCH (06:00)
== END 2016-04-01 11:45 | disposition home or self-care (01) ==
LOC: ENRESERVTM → ENRESERVDT → EDBD 05:35 → C.EDB 05:37 → C.2T 07:21
PROVIDERS: ADMIT Family Medicine; ATTEND Family Medicine
DX: R07.2 Precordial pain (principal); R55 Syncope and collapse; I25.10 Atherosclerotic heart disease of native coronary artery without angina pectoris; K21.9 Gastro-esophageal reflux disease without esophagitis; E03.9 Hypothyroidism, unspecified; E78.5 Hyperlipidemia, unspecified; I10 Essential (primary) hypertension; I25.2 Old myocardial infarction; Z86.73 Personal history of transient ischemic attack (TIA), and cerebral infarction without residual deficits; Z91.041 Radiographic dye allergy status; Z82.3 Family history of stroke; Z82.49 Family history of ischemic heart disease and other diseases of the circulatory system

== ENCOUNTER → 2016-04-09 | Outpatient (CLI) | payer BC ==
[~2016-04-09] MED LIST changes: +ASPI81TA28 PO; -ASPI81TA57 PO; -BECL0.072 INH; -CETI10TA84 PO; +CHOL20005 PO; +CIPR-255 PO; -COEN1CAP7 PO; +COEN400C3; +CZR25 PO; -DEXT30TA7 PO; +GING1CAP2 PO; -LEVO25TA PO; +LEVO25TA5 PO; +LEVO50TA6 PO; -LISI-729 PO; +LOSA1TAB PO; +METO1TAB31 PO; -METO25TA56 PO; +METR-162 PO; +MISC1TAB34 PO; +NUTRTAB40; +NUTRTAB40 PO; +OMEG12006 PO; -OMEP20CA9 PO; +ONDA4TAB10 SL; +PRLSR20 PO; -PRM/3 PO; +SYMIN160 INH; +TPRSR/25 PO; +[UNRECOGNIZED DRUG - OTHER] PO; +instaflex; -instaflex PO
--- NOTE | 2016-04-09 09:54 | DIAGNOSTIC IMAGING REPORT ---
ABDOMINAL ULTRASOUND, RIGHT UPPER QUADRANT HISTORY: Right upper quadrant abdominal pain. COMPARISON: Abdominal ultrasound June 11, [address] of the abdomen and pelvis August 02, 2009. FINDINGS: This exam is mildly compromised by suboptimal penetration. Liver morphology is normal. No hepatic lesions are identified. No gallstones are noted. There is no biliary ductal dilatation. The pancreatic body is normal. The head and tail are partially obscured. There is no right hydronephrosis. Note is made of mild right renal cortical thinning. IMPRESSION: 1. No gallstones or biliary ductal dilatation. 2. Partially obscured pancreas. Electronically signed by: Joselito Vega M.D. 04/09/2016 9:53 AM Dictated Date/Time: 04/09/2016 9:52 AM
== END | disposition home or self-care (01) ==
LOC: C.ULTR 09:06
PROVIDERS: ATTEND Internal Medicine Geriatric Medicine
DX: R10.9 Unspecified abdominal pain (principal)

== ENCOUNTER → 2016-05-01 | Outpatient (CLI) | payer BC ==
--- NOTE | 2016-05-01 12:00 | DIAGNOSTIC IMAGING REPORT ---
ULTRASOUND VENOUS DOPPLER ULTRASOUND OF THE RIGHT LOWER EXTREMITY CLINICAL HISTORY: Right leg pain COMPARISON STUDY: No previous studies for comparison. FINDINGS: Real-time and color flow Doppler imaging were performed. Flow was seen within the femoral, popliteal and calf veins with no intraluminal thrombus demonstrated. The saphenous vein is patent. IMPRESSION: No evidence of right lower extremity DVT. Electronically signed by: Junior Austin M.D. 05/01/2016 11:59 AM Dictated Date/Time: 05/01/2016 11:58 AM
--- NOTE | 2016-05-01 12:01 | DIAGNOSTIC IMAGING REPORT ---
RIGHT EXTREMITY NONVASCULAR LIMITED CLINICAL HISTORY: M79.609 Pain in extremity, right lower leg lump nodule TECHNIQUE: Ultrasound COMPARISON STUDY: None FINDINGS: Ultrasound shows no well-defined evidence for collection or mass. No abnormal fluid pocket is identified IMPRESSION: Normal study. No evidence for mass by ultrasound criteria Electronically signed by: Mike Mejia M.D. 05/01/2016 12:00 PM Dictated Date/Time: 05/01/2016 11:59 AM RAO
== END | disposition home or self-care (01) ==
LOC: C.ULTRBC 10:48
PROVIDERS: ATTEND Internal Medicine Geriatric Medicine
DX: I86.8 Varicose veins of other specified sites (principal); M79.604 Pain in right leg

== ENCOUNTER → 2016-07-27 | Outpatient (CLI) | payer BC ==
[~2016-07-27] MED LIST changes: +METO-478 PO; -METO1TAB31 PO
[2016-07-27 14:54] LABS: BASO % 0.8 %; BASO ABS # 0.05 K/uL (0-0.2); COMPLETE YES; EOS % 6.6 %; HEMATOCRIT 37.4 % (37-47); IG% 0.2 %; LYMPH % 25.6 %; LYMPH ABS # 1.63 K/uL (1.2-3.4); MEAN CORPUSCULAR HEMOGLOBIN 25.8 pg (25-34); MEAN CORPUSCULAR HGB CONC 30.7 g/dl (32-36); MEAN PLATELET VOLUME 9.6 fL (7.4-10.4); MONO % 10.4 %; NEUT % 56.4 %; PLATELET COUNT 297 K/uL (130-400); RED BLOOD COUNT 4.45 M/uL (4.2-5.4); WHITE BLOOD COUNT 6.37 K/uL (4.8-10.8)
[2016-07-27 15:12] LABS: ALT/SGPT 33 U/L (12-78); BLOOD UREA NITROGEN 18 mg/dl (7-18); BUN/CREATININE RATIO 15.9 (10-20); CARBON DIOXIDE 27 mmol/L (21-32); CHLORIDE 107 mmol/L (98-107); CHOLESTEROL 208 mg/dl (0-200); GLUCOSE 90 mg/dl (70-99); SODIUM 143 mmol/L (136-145); TRIGLYCERIDES 195 mg/dl (0-150); VERY LOW DENSITY LIPOPROT CALC 39 mg/dl
[2016-07-27 15:13] LABS: CALCIUM 9.2 mg/dl (8.5-10.1)
[2016-07-27 15:23] LABS: ALB/GLOB RATIO 0.8 (0.9-2); ALKALINE PHOSPHATASE 80 U/L (45-117); AST/SGOT 25 U/L (15-37); CHOLESTEROL/HDL RATIO 4.5; HDL CHOLESTEROL 46 mg/dl; LDL CHOLESTEROL CALCULATED 123 mg/dl; THYROID STIMULATING HORMONE 0.715 uIu/ml (0.300-4.500)
== END | disposition home or self-care (01) ==
LOC: C.LAB 13:19
PROVIDERS: ATTEND Internal Medicine Geriatric Medicine
DX: I10 Essential (primary) hypertension (principal); E03.9 Hypothyroidism, unspecified; E78.5 Hyperlipidemia, unspecified; M85.80 Other specified disorders of bone density and structure, unspecified site; I25.10 Atherosclerotic heart disease of native coronary artery without angina pectoris

== ENCOUNTER → 2016-09-15 | Outpatient (CLI) | payer BC ==
[~2016-09-15] MED LIST changes: -METO-478 PO; +METO1TAB31 PO
[2016-09-15 13:35] LABS: BASO ABS # 0.08 K/uL (0-0.2); COMPLETE YES; EOS % 3.9 %; HEMATOCRIT 38.6 % (37-47); IG% 0.3 %; LYMPH % 16.6 %; LYMPH ABS # 1.31 K/uL (1.2-3.4); MEAN CELL VOLUME 83.7 fL (80-100); MEAN CORPUSCULAR HEMOGLOBIN 25.8 pg (25-34); MEAN CORPUSCULAR HGB CONC 30.8 g/dl (32-36); MEAN PLATELET VOLUME 9.8 fL (7.4-10.4); MONO % 9.2 %; PLATELET COUNT 293 K/uL (130-400); RED BLOOD COUNT 4.61 M/uL (4.2-5.4); WHITE BLOOD COUNT 7.91 K/uL (4.8-10.8)
[2016-09-15 13:47] LABS: BLOOD UREA NITROGEN 16 mg/dl (7-18); BUN/CREATININE RATIO 13.7 (10-20); CALCIUM 9.7 mg/dl (8.5-10.1); CARBON DIOXIDE 27 mmol/L (21-32); CHLORIDE 106 mmol/L (98-107); GLUCOSE 87 mg/dl (70-99); POTASSIUM 4.2 mmol/L (3.5-5.1); SODIUM 140 mmol/L (136-145)
[2016-09-15 17:36] LABS: LYME DISEASE AB IGG NEG (NEG); LYME DISEASE AB IGM NEG (NEG)
== END | disposition home or self-care (01) ==
LOC: C.LABBC 12:13
PROVIDERS: ATTEND Physician Assistant Medical
DX: M25.50 Pain in unspecified joint (principal)

== ENCOUNTER → 2016-09-18 | Outpatient (CLI) | payer BC ==
--- NOTE | 2016-09-18 12:31 | DIAGNOSTIC IMAGING REPORT ---
THYROID ULTRASOUND CLINICAL HISTORY: ADENOPATHY,CERVICAL,HYPOTHYROIDISM COMPARISON STUDY: Thyroid ultrasound October 12, 2011. TECHNIQUE: Sonography of the thyroid gland and neck was performed. FINDINGS: The right thyroid lobe measures 3.6 x 1.1 x 1.1 cm and the left measures 2.4 x 1 x 0.8 cm. A few tiny cystic nodules within the thyroid gland are similar to earlier exam. These measure up to 3 mm. Note is made of a 6 mm echogenic focus inferior to the lower pole of the right thyroid gland which is of doubtful significance. No enlarged cervical lymph nodes are identified within the adjacent soft tissues. IMPRESSION: No suspicious thyroid nodules. Electronically signed by: Joselito Vega M.D. 09/18/2016 12:30 PM Dictated Date/Time: 09/18/2016 12:28 PM
== END | disposition home or self-care (01) ==
LOC: C.ULTRBC 11:30
PROVIDERS: ATTEND Physician Assistant Medical
DX: E03.9 Hypothyroidism, unspecified (principal); R59.0 Localized enlarged lymph nodes

== ENCOUNTER 2016-11-21 21:25 | Emergency (ER) | payer BC ==
[~2016-11-21] VITALS: Ht 162.6 cm; Wt 84.6 kg
[~2016-11-21 21:25] MED LIST changes: -ASPI81TA28 PO; -CHOL20005 PO; -CIPR-255 PO; -GING1CAP2 PO; -LEVO25TA5 PO; -LOSA1TAB PO; -METO1TAB31 PO; -METR-162 PO; -NUTRTAB40 PO; -OMEG12006 PO; -ONDA4TAB10 SL; -PRLSR20 PO; -[UNRECOGNIZED DRUG - OTHER] PO
[2016-11-21 21:37] VITALS: TEMP 36.8; Ht 162.6 cm; Wt 84.6 kg
[2016-11-21] MEDS ORDERED: ONDANSETRON INJ 2 MG/ML 2 ML VIAL IV STA (21:53)
[2016-11-21] MEDS ORDERED: SODIUM CHLORIDE 0.9% 1000ML 1,000 ML IV STA (21:53)
--- NOTE | 2016-11-21 22:11 | EMERGENCY ROOM VISIT NOTE ---
History Report prepared by Usama: Kristian Schrader Under the Supervision of: Dr. Eddy Davis D.O. First contact with patient: 21:44 Chief Complaint: DIARRHEA Stated Complaint: REALLY BAD DIARRHEA History of Present Illness The patient is a 76 year old female who presents to the Emergency Room with complaints of diarrhea that began today. She states that her symptoms begin with very sharp abdominal pains that occur intermittently. Whenever she has these pains, she needs to have a bowel movement. She describes her bowel movements as bloody mucous. She states that she has to go to the bathroom every 15 minutes. She has past medical history of hypertension, a thyroid disease, and a history of a previous [place]. She also had a hemorrhoid surgery, a hysterectomy, and sinus surgeries. She denies any recent trauma, traveling, or leg pain. She has had a colonoscopy in the past that did not show anything pertinent, but she does not remember when she received the scan. Source of History: patient Onset: this morning Position: other (GI) Symptom Intensity: Every 15 minutes Quality: other ("Bloody mucous") Timing: intermittent Associated Symptoms: + abdominal pain (intermittent), + hematochezia Note: She denies any leg pain. Review of Systems See HPI for pertinent positives & negatives. A total of 10 systems reviewed and were otherwise negative. Past Medical & Surgical Medical Problems: (1) Acute bronchitis (2) Herpes Zoster Nos (3) Hyperlipidemia Nec/Nos (4) Hypertension Nos (5) Hypothyroidism Nos (6) NSTEMI (non-ST elevated myocardial infarction) Family History FH: cancer FH: heart disease FH: stroke FATHER Hypertension Social History Smoking Status: Never Smoker Smokeless Tobacco Use: No Alcohol Use: none Drug Use: none Marital Status: , in relationship Occupation Status: retired Current/Historical Medications Scheduled Aspirin (Aspirin Ec), 81 MG PO QAM Cholecalciferol (Vitamin D3), 2,000 UNITS PO AMPM Ciprofloxacin Hcl (Cipro), 500 MG PO BID Debra (Zingiber Officinalis) (Debra Root), 1 CAP PO QAM Levothyroxine Sodium (Levothyroxine Sodium), 25 MCG PO QAM Losartan Potassium (Cozaar), 25 MG PO QAM Metoprolol Succinate (Toprol Xl), 25 MG PO QPM Metronidazole (Flagyl), 500 MG PO TID Misc Natural Products (Curcumax Pro), 1 TAB PO QAM Nutritional Supplements ([place]), 1 TAB PO QPM [place]-3 Fatty Acids ([place] 3), 1 CAP PO QAM Ondasetron Odt (Zofran Odt), 4 MG SL Q6H [Max Q-10 Ultra], 1 TAB PO QPM Allergies Coded Allergies: Iodinated Diagnostic Agents (Verified Allergy, Unknown, ., 11/21/16) Statins (Verified Allergy, Unknown, UNSURE, 11/21/16) Clarithromycin (Verified Adverse Reaction, Intermediate, NAUSEA, 11/21/16) Physical Exam Vital Signs Date Time Temp Pulse Resp B/P (MAP) Pulse Ox O2 Delivery O2 Flow Rate FiO2 11/22/16 02:37 87 20 128/82 95 11/22/16 00:43 84 20 145/71 97 Room Air 11/21/16 23:31 87 20 95 Room Air 11/21/16 21:37 36.8 91 20 131/79 96 Room Air Physical Exam GENERAL: Patient is awake, alert, and in no acute distress. Patient is resting comfortably and showing no signs of anxiety EYES: The conjunctivae are clear. The pupils are round and reactive. EARS, NOSE, MOUTH AND THROAT: The nose is without any evidence of any deformity. Mucous membranes are moist tongue is midline NECK: The neck is nontender and supple. RESPIRATORY: Normal respiratory effort is noted there is no evidence of wheezing rhonchi or rales CARDIOVASCULAR: Regular rate and rhythm noted there no murmurs rubs or gallops normal S1 normal S2 GASTROINTESTINAL: The abdomen is mildly distended but soft. Bowel sounds are present in all quadrants. Abdomen is diffusely tender to palpation. No guarding or rigidity. MUSCULOSKELETAL/EXTREMITIES: There is no evidence of gross deformity full range of motion is noted in the hips and shoulders SKIN: Bilateral pedal edema. There is no obvious evidence of any rash. There are no petechiae, pallor or cyanosis noted. NEUROLOGIC: Patient is awake alert and oriented x3. Medical Decision & Procedures ER Provider Diagnostic Interpretation: Radiology results as stated below per my review and radiologist interpretation: ABD/PELVIS NO IV OR ORAL CONT CLINICAL HISTORY: 76 years-old Female presenting with lower abd pain. TECHNIQUE: Multidetector CT of the abdomen and pelvis was performed without the use of intravenous contrast. IV contrast: None. A dose lowering technique was used consistent with the principles of ALARA (as low as reasonably achievable). COMPARISON: 08/02/2009. CT DOSE (mGy.cm): The estimated cumulative dose is 636.27 mGy.cm. FINDINGS: Finisher Machine topogram: Unremarkable. Lung bases: Minimal dependent changes likely atelectasis. Normal heart size. Coronary artery calcification. No pericardial or pleural effusion. Liver: Normal morphology. Normal density. Biliary: No gross biliary ductal dilatation allowing for noncontrast technique. Normal gallbladder. Pancreas: Mild parenchymal atrophy. Spleen: Normal noncontrast appearance. Adrenal glands: Normal noncontrast appearance. Kidneys and ureters: Normal noncontrast appearance. No hydronephrosis. Bladder: Incompletely evaluated secondary to underdistention. Pelvic organs: Uterus surgically absent. No adnexal masses. Bowel: Allowing for underdistention, diffuse colonic wall thickening most severe in the ascending and transverse colon. Pericolonic inflammatory change subtly present at the transverse colon. No colonic distention to suggest megacolon. No bowel obstruction. Moderate hiatal hernia. Peritoneal cavity: No free fluid or intraperitoneal gas. Vasculature: Atherosclerosis of the normal caliber abdominal aorta. Lymph nodes: Few prominent upper abdominal lymph nodes, possibly reactive. Abdominal wall: Normal. Musculoskeletal: Degenerative changes of the spine. IMPRESSION: 1. Findings consistent with colitis, likely infectious given the extended distribution most significantly involving the ascending and transverse colon. Electronically signed by: Ever Peng M.D. 11/21/2016 10:58 PM Dictated Date/Time: 11/21/2016 10:52 PM Laboratory Results 11/21/16 22:15 Red Blood Count 5.01, Mean Corpuscular Volume 82.2, Mean Corpuscular Hemoglobin 25.3, Mean Corpuscular Hemoglobin Concent 30.8, Mean Platelet Volume 9.4, Neutrophils (%) (Auto) 65.7, Lymphocytes (%) (Auto) 22.5, Monocytes (%) (Auto) 8.2, Eosinophils (%) (Auto) 2.7, Basophils (%) (Auto) 0.7, Neutrophils # (Auto) 5.97, Lymphocytes # (Auto) 2.05, Monocytes # (Auto) 0.75, Eosinophils # (Auto) 0.25, Basophils # (Auto) 0.06 11/21/16 22:15 Test 9/30/17 22:15 11/21/16 23:25 White Blood Count 9.10 K/uL (4.8-10.8) Red Blood Count 5.01 M/uL (4.2-5.4) Hemoglobin 12.7 g/dL (12.0-16.0) Hematocrit 41.2 % (37-47) Mean Corpuscular Volume 82.2 fL (80-100) Mean Corpuscular Hemoglobin 25.3 pg (25-34) Mean Corpuscular Hemoglobin Concent 30.8 g/dl (32-36) Platelet Count 274 K/uL (130-400) Mean Platelet Volume 9.4 fL (7.4-10.4) Neutrophils (%) (Auto) 65.7 % Lymphocytes (%) (Auto) 22.5 % Monocytes (%) (Auto) 8.2 % Eosinophils (%) (Auto) 2.7 % Basophils (%) (Auto) 0.7 % Neutrophils # (Auto) 5.97 K/uL (1.4-6.5) Lymphocytes # (Auto) 2.05 K/uL (1.2-3.4) Monocytes # (Auto) 0.75 K/uL (0.11-0.59) Eosinophils # (Auto) 0.25 K/uL (0-0.5) Basophils # (Auto) 0.06 K/uL (0-0.2) RDW Standard Deviation 45.0 fL (36.4-46.3) RDW Coefficient of Variation 14.9 % (11.5-14.5) Immature Granulocyte % (Auto) 0.2 % Immature Granulocyte # (Auto) 0.02 K/uL (0.00-0.02) Prothrombin Time 10.8 SECONDS (9.0-12.0) Prothromb Time International Ratio 1.0 (0.9-1.1) Activated Partial Thromboplast Time 28.1 SECONDS (21.0-31.0) Partial Thromboplastin Ratio 1.1 Anion Gap 5.0 mmol/L (3-11) Est Creatinine Clear Calc Drug Dose 44.4 ml/min Estimated GFR () 55.7 Estimated GFR (Non- 48.1 BUN/Creatinine Ratio 14.8 (10-20) Calcium Level 9.3 mg/dl (8.5-10.1) Magnesium Level 1.9 mg/dl (1.8-2.4) Total Bilirubin 0.4 mg/dl (0.2-1) Direct Bilirubin 0.1 mg/dl (0-0.2) Aspartate Amino Transf (AST/SGOT) 36 U/L (15-37) Alanine Aminotransferase (ALT/SGPT) 48 U/L (12-78) Alkaline Phosphatase 90 U/L (45-117) Total Protein 7.2 gm/dl (6.4-8.2) Albumin 3.1 gm/dl (3.4-5.0) Lipase 230 U/L (73-393) Urine Color YELLOW Urine Appearance CLEAR (CLEAR) Urine pH 5.0 (4.5-7.5) Urine Specific [place] 1.027 (1.000-1.030) Urine Protein NEG (NEG) Urine Glucose (UA) NEG (NEG) Urine Ketones NEG (NEG) Urine Occult Blood TRACE (NEG) Urine Nitrite NEG (NEG) Urine Bilirubin NEG (NEG) Urine Urobilinogen NEG (NEG) Urine Leukocyte Esterase MODERATE (NEG) Urine WBC (Auto) 10-30 /hpf (0-5) Urine RBC (Auto) 0-4 /hpf (0-4) Urine Hyaline Casts (Auto) 5-10 /lpf (0-5) Urine Epithelial Cells (Auto) >30 /lpf (0-5) Urine Bacteria (Auto) NEG (NEG) Urine Crystals CALCIUM OXALATE (NONE Urine Mucus PRESENT (NONE PRSENT) Date/Time Source Procedure Growth Status 11/22/16 01:05 Stool C.difficile Toxin B Gene (PCR) - Final No C. difficile toxin B gene detected Complete Laboratory results per my review. Medications Administered Medications (Trade) Dose Ordered Sig/Myron Route Start Time Stop Time Status Last Admin Dose Admin Sodium Chloride 1,000 ml @ 999 mls/hr Q1H1M STAT IV 11/21/16 21:53 11/21/16 22:53 DC 11/21/16 22:11 999 MLS/HR Ondansetron HCl (Zofran Inj) 4 mg NOW STAT IV 11/21/16 21:53 11/21/16 21:55 DC 11/21/16 22:11 4 MG Morphine Sulfate (MoRPHine SULFATE INJ) 4 mg Q15M PRN IV 11/22/16 01:15 11/22/16 03:14 DC 11/22/16 01:47 4 MG Ciprofloxacin (Cipro 500MG Home Pack) 1 homepack UD ONCE PO 11/22/16 02:30 11/22/16 02:31 DC 11/22/16 02:26 1 HOMEPACK Ciprofloxacin (Cipro Tab) 500 mg NOW STAT PO 11/22/16 02:20 11/22/16 02:21 DC 11/22/16 02:26 500 MG Metronidazole (Flagyl Tab) 500 mg NOW STAT PO 11/22/16 02:20 11/22/16 02:21 DC 11/22/16 02:26 500 MG Ondansetron HCl (ZOFRAN ODT 4MG Home Pack) 1 homepack UD ONCE PO 11/22/16 02:30 11/22/16 02:31 DC 11/22/16 02:27 1 HOMEPACK Oxycodone HCl (Roxicodone Immediate Rel 5MG Home Pack) 1 homepack UD ONCE PO 11/22/16 02:30 11/22/16 02:31 DC 11/22/16 02:26 1 HOMEPACK ED Course 2144: The patient was evaluated in room C9. A complete history and physical examination were performed. 2153: Ordered Zofran Inj 4 mg IV, NSS 1,000 ml @ 999 mls/hr IV 0115: Ordered Morphine Sulfate 4 mg IV 0220: Ordered Flagyl Tab 500 mg PO, Cipro Tab 500 mg PO 0230: Ordered Oxycodone HCl 1 homepack PO, Ondansetron HCl 1 homepack PO, Ciprofloxacin 1 homepack PO 0235: Upon reevaluation, the patient is resting. I discussed the results and treatment plan with her. She verbalized agreement of the treatment plan. She was discharged home. Medical Decision Differential diagnosis: Etiologies such as diverticulosis, AVM, coagulopathy, colitis, inflammatory bowel disease, malignancy, Genesis-Yan tear, esophagitis, peptic ulcer disease , variceal bleed, gastritis, epistaxis, fissure, hemorrhoids, as well as others were entertained. Nursing notes reviewed. The patient is a 76-year-old female who presented to emergency department for an evaluation of diarrhea. She's been having loose bowel movements but then started having blood in her bowel movements. I discussed the patient's laboratory and radiographically studies with her. She was treated with IV fluids and antibiotics. On subsequent reevaluation she was feeling much better. At this time I feel this is likely colitis. I do not feel it is ischemic colitis in nature. The patient does not have any abdominal discomfort in between these episodes of diarrhea. It is more crampy sensation that goes away after she has the bowel movement. She was encouraged to rest and avoid any strenuous activity. She was encouraged to continue all medications as prescribed and drink plenty clear liquids. Otherwise she was encouraged to return to emergency department immediately if symptoms change worsen or the need arises. Medication Reconcilliation Current Medication List: was personally reviewed by me Blood Pressure Screening Patient's blood pressure: Normal blood pressure Blood pressure disposition: Did not require urgent referral Impression Primary Impression: Colitis Additional Impressions: GI bleeding UTI (urinary tract infection) Scribe Attestation The scribe's documentation has been prepared under my direction and personally reviewed by me in its entirety. I confirm that the note above accurately reflects all work, treatment, procedures, and medical decision making performed by me. Departure Information Dispostion Home / Self-Care Prescriptions Ondasetron Odt (ZOFRAN ODT) 4 Mg Tab 4 MG SL Q6H for Nausea, #15 TAB Prov: Eddy Davis, DO 11/22/16 Metronidazole (FLAGYL) 500 Mg Tab 500 MG PO TID, #30 TAB Prov: Eddy Davis, DO 11/22/16 Ciprofloxacin Hcl (CIPRO) 500 Mg Tab 500 MG PO BID, #20 TAB Prov: Eddy Davis, DO 11/22/16 Referrals Murali Kolb M.D. (PCP) Forms HOME CARE DOCUMENTATION FORM, IMPORTANT VISIT INFORMATION, WORK / SCHOOL INSTRUCTIONS Patient Instructions ED Gastroenteritis Bacterial, My [facility] Additional Instructions Call your family doctor Wednesday to schedule a follow-up appointment. Continue all medications as prescribed. Drink plenty clear liquids. Discussed the possibility with your family doctor that you may require a referral to a packing checker to further evaluate the cause of your discomfort. Return to the emergency department immediately if symptoms change worsen or the need arises. Continue using Tylenol as directed for mild pain. Problem Qualifiers Additional Impressions: GI bleeding GI bleed type/associated pathology: unspecified gastrointestinal hemorrhage type Qualified Codes: K92.2 - Gastrointestinal hemorrhage, unspecified UTI (urinary tract infection) Urinary tract infection type: site unspecified Hematuria presence: without hematuria Qualified Codes: N39.0 - Urinary tract infection, site not specified
[2016-11-21] MEDS ORDERED: LEVO25TA5 PO (22:19)
[2016-11-21] MEDS ORDERED: CHOL20005 PO (22:19)
[2016-11-21] MEDS ORDERED: MISC1TAB34 PO (22:19)
[2016-11-21] MEDS ORDERED: METO1TAB31 PO (22:19)
[2016-11-21] MEDS ORDERED: [UNRECOGNIZED DRUG - OTHER] PO (22:19)
[2016-11-21] MEDS ORDERED: LOSA1TAB PO (22:19)
[2016-11-21] MEDS ORDERED: ASPI81TA28 PO (22:19)
[2016-11-21] MEDS ORDERED: NUTRTAB40 PO (22:19)
[2016-11-21] MEDS ORDERED: GING1CAP2 PO (22:19)
[2016-11-21] MEDS ORDERED: OMEG12006 PO (22:19)
[2016-11-21 22:27] LABS: BASO % 0.7 %; BASO ABS # 0.06 K/uL (0-0.2); COMPLETE YES; EOS % 2.7 %; HEMATOCRIT 41.2 % (37-47); IG% 0.2 %; LYMPH % 22.5 %; LYMPH ABS # 2.05 K/uL (1.2-3.4); MEAN CELL VOLUME 82.2 fL (80-100); MEAN CORPUSCULAR HEMOGLOBIN 25.3 pg (25-34); MEAN CORPUSCULAR HGB CONC 30.8 g/dl (32-36); MEAN PLATELET VOLUME 9.4 fL (7.4-10.4); MONO % 8.2 %; NEUT % 65.7 %; PLATELET COUNT 274 K/uL (130-400); RED BLOOD COUNT 5.01 M/uL (4.2-5.4)
[2016-11-21 22:46] LABS: BUN/CREATININE RATIO 14.8 (10-20); CALCIUM 9.3 mg/dl (8.5-10.1); CREATININE 1.1 mg/dl (0.60-1.20); POTASSIUM 3.8 mmol/L (3.5-5.1)
[2016-11-21 22:47] LABS: PARTIAL THROMBOPLASTIN RATIO 1.1; PROTHROMBIN TIME (PATIENT) 10.8 SECONDS (9.0-12.0)
--- NOTE | 2016-11-21 22:59 | DIAGNOSTIC IMAGING REPORT ---
ABD/PELVIS NO IV OR ORAL CONT CLINICAL HISTORY: 76 years-old Female presenting with lower abd pain. TECHNIQUE: Multidetector CT of the abdomen and pelvis was performed without the use of intravenous contrast. IV contrast: None. A dose lowering technique was used consistent with the principles of ALARA (as low as reasonably achievable). COMPARISON: 08/02/2009. CT DOSE (mGy.cm): The estimated cumulative dose is 636.27 mGy.cm. FINDINGS: Specialty Molder topogram: Unremarkable. Lung bases: Minimal dependent changes likely atelectasis. Normal heart size. Coronary artery calcification. No pericardial or pleural effusion. Liver: Normal morphology. Normal density. Biliary: No gross biliary ductal dilatation allowing for noncontrast technique. Normal gallbladder. Pancreas: Mild parenchymal atrophy. Spleen: Normal noncontrast appearance. Adrenal glands: Normal noncontrast appearance. Kidneys and ureters: Normal noncontrast appearance. No hydronephrosis. Bladder: Incompletely evaluated secondary to underdistention. Pelvic organs: Uterus surgically absent. No adnexal masses. Bowel: Allowing for underdistention, diffuse colonic wall thickening most severe in the ascending and transverse colon. Pericolonic inflammatory change subtly present at the transverse colon. No colonic distention to suggest megacolon. No bowel obstruction. Moderate hiatal hernia. Peritoneal cavity: No free fluid or intraperitoneal gas. Vasculature: Atherosclerosis of the normal caliber abdominal aorta. Lymph nodes: Few prominent upper abdominal lymph nodes, possibly reactive. Abdominal wall: Normal. Musculoskeletal: Degenerative changes of the spine. IMPRESSION: 1. Findings consistent with colitis, likely infectious given the extended distribution most significantly involving the ascending and transverse colon. Electronically signed by: Ever Peng M.D. 11/21/2016 10:58 PM Dictated Date/Time: 11/21/2016 10:52 PM
[2016-11-21 23:51] LABS: URINE APPEARANCE CLEAR (CLEAR); URINE BILIRUBIN NEG (NEG); URINE COLOR YELLOW; URINE EPITHELIAL CELL AUTO >30 /lpf (0-5); URINE NITRITE NEG (NEG); URINE SPECIFIC GRAVITY 1.027 (1.000-1.030); UROBILINOGEN NEG (NEG)
[2016-11-21 23:53] LABS: MANUAL MICROSCOPIC REQUIRED? NO; REVIEW REQ? YES
[2016-11-22 00:04] LABS: URINE MUCUS PRESENT (NONE PRSENT)
[2016-11-22 00:11] LABS: MAGNESIUM 1.9 mg/dl (1.8-2.4)
[2016-11-22] MEDS ORDERED: MoRPHine SULFATE 4 MG/ML 1 ML CARP\\VIAL IV PRN (01:15)
[2016-11-22] MEDS ORDERED: METRONIDAZOLE 250 MG TAB PO STA (02:20)
[2016-11-22] MEDS ORDERED: CIPROFLOXACIN 500 MG TAB PO STA (02:20)
[2016-11-22] MEDS ORDERED: CIPR-255 PO (02:26)
[2016-11-22] MEDS ORDERED: METR-162 PO (02:26)
[2016-11-22] MEDS ORDERED: ONDA4TAB10 SL (02:26)
[2016-11-22] MEDS ORDERED: CIPROFLOXACIN 500MG HOME PACK PO ONE (02:30)
[2016-11-22] MEDS ORDERED: OXYCODONE IR HOME PACK PO ONE (02:30)
[2016-11-22] MEDS ORDERED: ONDANSETRON HOME PACK 4MG OD TAB PO ONE (02:30)
[2016-11-22 02:37] VITALS: BP 128/82; PULSE 87; O2SAT 95
== END 2016-11-22 02:39 | disposition home or self-care (01) ==
LOC: C.EDB 21:27
DX: K52.9 Noninfective gastroenteritis and colitis, unspecified (principal); K92.2 Gastrointestinal hemorrhage, unspecified; N39.0 Urinary tract infection, site not specified; R10.9 Unspecified abdominal pain; I10 Essential (primary) hypertension; E78.5 Hyperlipidemia, unspecified; E03.9 Hypothyroidism, unspecified; Z79.82 Long term (current) use of aspirin; Z79.899 Other long term (current) drug therapy; Z86.19 Personal history of other infectious and parasitic diseases; Z87.09 Personal history of other diseases of the respiratory system; I25.2 Old myocardial infarction; Z82.3 Family history of stroke; Z82.49 Family history of ischemic heart disease and other diseases of the circulatory system

== ENCOUNTER → 2016-12-30 | Outpatient (CLI) | payer BC ==
[~2016-12-30] MED LIST changes: +ASPI81TA28 PO; -BRL90 PO; +CHOL20005 PO; -CHOL20007 PO; +CIPR-255 PO; -COEN400C3; -CZR25 PO; +GING1CAP2 PO; +LEVO25TA5 PO; -LEVO50TA6 PO; +LOSA1TAB PO; +METO-478 PO; -NUTRTAB40; +NUTRTAB40 PO; -OMEG10007 PO; +OMEG12006 PO; +ONDA4TAB10 SL; -SYMIN160 INH; -TPRSR/25 PO; +[UNRECOGNIZED DRUG - OTHER] PO; -instaflex
--- NOTE | 2016-12-31 07:51 | MAMMOGRAPHY REPORT ---
BILATERAL DIGITAL SCREENING MAMMOGRAM TOMOSYNTHESIS WITH CAD: 12/30/2016 CLINICAL HISTORY: Routine screening. Patient has no complaints. TECHNIQUE: Breast tomosynthesis in addition to standard 2D mammography was performed. Current study was also evaluated with a Computer Aided Detection (CAD) system. COMPARISON: Comparison is made to exams dated: 12/25/2015 mammogram, 12/17/2014 mammogram, 12/06/2013 mammogram, 11/30/2012 mammogram, 12/01/2011 mammogram, and 11/25/2011 mammogram - [facility]. BREAST COMPOSITION: There are scattered areas of fibroglandular density in both breasts. FINDINGS: There are scattered benign calcifications in the breasts. No suspicious mass, architectura l distortion or cluster of suspicious microcalcifications is seen. IMPRESSION: ACR BI-RADS CATEGORY 1: NEGATIVE There is no mammographic evidence of malignancy. A 1 year screening mammogram is recommended. The pa tient will receive written notification of the results. Approximately 10% of breast cancers are not detected with mammography. A negative mammographic report should not delay biopsy if a clinically suggestive mass is present. Janina Chin M.D. ay/:12/30/2016 17:09:08 Food Safety Auditor: Samira DESAI(Geraldine)([place]), [facility] letter sent: Normal 1/2 BI-RADS Code: ACR BI-RADS Category 1: Negative
== END | disposition home or self-care (01) ==
LOC: C.MAMM 16:49
PROVIDERS: ATTEND Obstetrics & Gynecology
DX: Z12.31 Encounter for screening mammogram for malignant neoplasm of breast (principal)

== ENCOUNTER → 2017-01-07 | Outpatient (CLI) | payer BC | END | disposition home or self-care (01) | LOC: C.PAPS 07:40 | PROVIDERS: ATTEND Obstetrics & Gynecology | DX: Z12.4 Encounter for screening for malignant neoplasm of cervix (principal) ==

== ENCOUNTER → 2017-03-04 | Outpatient (CLI) | payer BC ==
[2017-03-04 14:37] LABS: BASO % 1.6 %; EOS ABS # 0.32 K/uL (0-0.5); HEMATOCRIT 36.6 % (37-47); HEMOGLOBIN 11.5 g/dL (12.0-16.0); IG# 0.01 K/uL (0.00-0.02); LYMPH % 23.4 %; MEAN CELL VOLUME 83.2 fL (80-100); MEAN CORPUSCULAR HEMOGLOBIN 26.1 pg (25-34); MEAN CORPUSCULAR HGB CONC 31.4 g/dl (32-36); MEAN PLATELET VOLUME 9.6 fL (7.4-10.4); MONO % 9.8 %; MONO ABS # 0.63 K/uL (0.11-0.59); NEUT ABS # 3.86 K/uL (1.4-6.5); PLATELET COUNT 334 K/uL (130-400); RED CELL DISTRIBUTION WIDTH CV 14.6 % (11.5-14.5); RED CELL DISTRIBUTION WIDTH SD 44.2 fL (36.4-46.3); WHITE BLOOD COUNT 6.42 K/uL (4.8-10.8)
[2017-03-04 14:49] LABS: ALBUMIN 2.9 gm/dl (3.4-5.0); ALT/SGPT 27 U/L (12-78); AST/SGOT 23 U/L (15-37); BLOOD UREA NITROGEN 17 mg/dl (7-18); CALCIUM 9.3 mg/dl (8.5-10.1); CARBON DIOXIDE 30 mmol/L (21-32); CREATININE 1.06 mg/dl (0.60-1.20); GLUCOSE 92 mg/dl (70-99); POTASSIUM 4.2 mmol/L (3.5-5.1); SODIUM 136 mmol/L (136-145)
[2017-03-04 14:59] LABS: ALKALINE PHOSPHATASE 91 U/L (45-117); CHOLESTEROL 214 mg/dl (0-200); LDL CHOLESTEROL CALCULATED 145 mg/dl; TOTAL PROTEIN 7.1 gm/dl (6.4-8.2)
== END | disposition home or self-care (01) ==
LOC: C.LAB 13:10
PROVIDERS: ATTEND Internal Medicine Geriatric Medicine
DX: I10 Essential (primary) hypertension (principal); E03.9 Hypothyroidism, unspecified; I25.10 Atherosclerotic heart disease of native coronary artery without angina pectoris; E78.5 Hyperlipidemia, unspecified; M85.80 Other specified disorders of bone density and structure, unspecified site

== ENCOUNTER → 2017-03-30 | Outpatient (CLI) | payer BC | END | disposition home or self-care (01) | LOC: C.PATHSPEC 14:29 | PROVIDERS: ATTEND Obstetrics & Gynecology | DX: R87.623 High grade squamous intraepithelial lesion on cytologic smear of vagina (HGSIL) (principal) ==

== ENCOUNTER → 2017-03-30 | Outpatient (CLI) | payer BC | END | disposition home or self-care (01) | LOC: C.PAPS 14:30 | PROVIDERS: ATTEND Obstetrics & Gynecology | DX: R87.623 High grade squamous intraepithelial lesion on cytologic smear of vagina (HGSIL) (principal) ==

== ENCOUNTER 2017-04-10 04:16 | Emergency (ER) | payer BC ==
[~2017-04-10] VITALS: Ht 165.1 cm; Wt 82.2 kg
[2017-04-10] MEDS ORDERED: HYDROmorphone INJ 0.5 MG/0.5 ML SYR IV STA (04:51)
--- NOTE | 2017-04-10 04:57 | EMERGENCY ROOM VISIT NOTE ---
History Report prepared by Usama: Guillermo Álvarez Under the Supervision of: Dr. Evi Medeiros D.O. First contact with patient: 04:28 Chief Complaint: HEADACHE Stated Complaint: HEADACHE,NAUSEA,CONFUSION,FLU? History of Present Illness The patient is a 76 year old female who presents to the Emergency Room with complaints of intermittent headache that began a month ago. Patient states that today was the "worst her headache has ever been". Patient states that she does not normally get headaches. She states that they typically come on when she wakes up in the morning. Patient has associated symptoms of left forehead pain, left head pain and left ear pain. Patient is present with her . states that the patient took Tylenol and two baby Aspirins to try and relieve the symptoms. He adds that the patient took the two baby Aspirins 1 hours ago. states that the patient became confused after taking the baby Aspirins. adds that the patient had a similar episode of confusion before "awhile ago". Patient denies any body aches or stomach sickness. She does not know if she had a fever recently. Patient denies getting a flu shot this year. Patient denies taking daily pain medication or blood thinners. states that the patient did laundry yesterday and seemed to be okay. The adds a history that these symptoms have been ongoing for more than a month. He explains that she seem to have an illness back in February which they thought was the flu. She seemed to get better from this but then had persistent weakness and feelings of being unwell for more than a month. Source of History: patient Onset: 1 month ago Position: head Timing: intermittent Note: Patient has ear pain. Patient denies body aches or stomach sickness. Review of Systems See HPI for pertinent positives & negatives. A total of 10 systems reviewed and were otherwise negative. Past Medical & Surgical Medical Problems: (1) Acute bronchitis (2) Asthma (3) Herpes Zoster Nos (4) Hyperlipidemia Nec/Nos (5) Hypertension Nos (6) Hypothyroidism Nos (7) NSTEMI (non-ST elevated myocardial infarction) Family History FH: cancer FH: heart disease FH: stroke FATHER Hypertension Social History Smoking Status: Never Smoker Alcohol Use: none Drug Use: none Marital Status: , in relationship Housing Status: lives with significant other Occupation Status: retired Current/Historical Medications Scheduled Amoxicillin & Pot Clavulanate (Augmentin 875-125 mg), 875 MG PO BID Aspirin (Aspirin Ec), 81 MG PO QAM Cetirizine (Zyrtec), 10 MG PO DAILY Cholecalciferol (Vitamin D3), 2,000 UNITS PO AMPM Coenzyme Q10 (Ubidecarenone) (Co Q 10), 100 MG PO BID Fish Oil ([place]-3), 1 CAP PO DAILY Debra (Zingiber Officinalis) (Debra Root), 250 MG PO DAILY Levothyroxine Sodium (Levothyroxine Sodium), 50 MCG PO DAILY Losartan Potassium (Cozaar), 25 MG PO QAM Metoprolol Succinate (Toprol Xl), 25 MG PO QPM Misc Natural Products (Curcumax Pro), 1 TAB PO QAM Nutritional Supplements (Estroven), 1 TAB PO QPM Scheduled PRN Furosemide (Lasix), 20 MG PO DAILY PRN for EDEMA Prednisone Tab (Prednisone), 10 MG PO DAILY PRN for UNDECIDED Allergies Coded Allergies: Iodinated Diagnostic Agents (Verified Allergy, Unknown, ., 11/21/16) Statins (Verified Allergy, Unknown, UNSURE, 11/21/16) Clarithromycin (Verified Adverse Reaction, Intermediate, NAUSEA, 11/21/16) Physical Exam Vital Signs Date Time Temp Pulse Resp B/P (MAP) Pulse Ox O2 Delivery O2 Flow Rate FiO2 04/10/17 08:00 82 18 139/74 98 Room Air 04/10/17 07:45 36.9 04/10/17 06:41 77 17 98 04/10/17 06:30 140/67 04/10/17 06:26 74 16 96 04/10/17 06:11 75 19 97 04/10/17 06:06 72 16 94 04/10/17 06:00 151/86 04/10/17 05:21 96 99 04/10/17 05:16 85 23 99 04/10/17 05:06 81 04/10/17 05:02 108/87 04/10/17 05:01 84 100 04/10/17 04:46 75 22 98 Room Air 04/10/17 04:43 147/81 04/10/17 04:20 36.3 77 18 157/91 97 Room Air Physical Exam HEENT: Head - normocephalic and atraumatic. Pupils are equal, round, and reactive to light. Extraocular eye muscles are intact and sclera are anicteric. Ears - bilaterally patent canals with noninjected tympanic membranes and no evidence of hemotympanum. Nose - moist nasal mucosa without discharge. Mouth - moist buccal mucosa. Oropharynx is nonerythematous and there is no tonsillar exudate or edema noted. Neck: Supple; no JVD, nuchal rigidity, cervical lymphadenopathy, or auscultated bruits. Heart: Regular rate and rhythm. There is a normal S1 and S2 with no murmurs, clicks, or gallops appreciated. Lungs: Clear to auscultation bilaterally with no wheezes, rales, or rhonchi. Abdomen: Soft, completely nontender, nondistended, with good bowel sounds. There are no palpable pulsatile masses or hepatosplenomegaly. There is no guarding, rigidity, or rebound noted. Extremities: No evidence of cyanosis, clubbing, or edema. There are easily palpable peripheral pulses. Neuro:The patient is awake and alert, oriented to day, time, and place. Muscle strength is 5/5 in all 4 extremities. The patient has equal kitchen assistant strength and equal pedal push and pull. There are no cerebellar signs. Medical Decision & Procedures ER Provider Diagnostic Interpretation: Radiology results as stated below per my review and the radiologist's interpretation: CT HEAD: Comparison: 04/01/2016 No acute infarct, hemorrhage, mass or edema. Chronic small vessel ischemic disease. No acute osseous abnormality. Mild mucosal thickening of paranasal sinuses. Radiologist: Antony Lopez MD Laboratory Results 04/10/17 05:59 Red Blood Count 4.37, Mean Corpuscular Volume 80.3, Mean Corpuscular Hemoglobin 26.5, Mean Corpuscular Hemoglobin Concent 33.0, Mean Platelet Volume 9.3, Neutrophils (%) (Auto) 68.6, Lymphocytes (%) (Auto) 23.8, Monocytes (%) (Auto) 5.8, Eosinophils (%) (Auto) 1.3, Basophils (%) (Auto) 0.4, Neutrophils # (Auto) 6.45, Lymphocytes # (Auto) 2.24, Monocytes # (Auto) 0.55, Eosinophils # (Auto) 0.12, Basophils # (Auto) 0.04 04/10/17 05:59 Test 04/10/17 04:50 04/10/17 05:59 Influenza Type A (RT-PCR) Neg for Influ A (NEG) Influenza Type A Antigen Neg for Influ A (NEG) Influenza Type B Antigen Neg for Influ B (NEG) Influenza Type B (RT-PCR) Neg for Influ B (NEG) White Blood Count 9.41 K/uL (4.8-10.8) Red Blood Count 4.37 M/uL (4.2-5.4) Hemoglobin 11.6 g/dL (12.0-16.0) Hematocrit 35.1 % (37-47) Mean Corpuscular Volume 80.3 fL (80-100) Mean Corpuscular Hemoglobin 26.5 pg (25-34) Mean Corpuscular Hemoglobin Concent 33.0 g/dl (32-36) Platelet Count 261 K/uL (130-400) Mean Platelet Volume 9.3 fL (7.4-10.4) Neutrophils (%) (Auto) 68.6 % Lymphocytes (%) (Auto) 23.8 % Monocytes (%) (Auto) 5.8 % Eosinophils (%) (Auto) 1.3 % Basophils (%) (Auto) 0.4 % Neutrophils # (Auto) 6.45 K/uL (1.4-6.5) Lymphocytes # (Auto) 2.24 K/uL (1.2-3.4) Monocytes # (Auto) 0.55 K/uL (0.11-0.59) Eosinophils # (Auto) 0.12 K/uL (0-0.5) Basophils # (Auto) 0.04 K/uL (0-0.2) RDW Standard Deviation 43.0 fL (36.4-46.3) RDW Coefficient of Variation 14.8 % (11.5-14.5) Immature Granulocyte % (Auto) 0.1 % Immature Granulocyte # (Auto) 0.01 K/uL (0.00-0.02) Anion Gap 6.0 mmol/L (3-11) Est Creatinine Clear Calc Drug Dose 48.6 ml/min Estimated GFR () 61.7 Estimated GFR (Non- 53.3 BUN/Creatinine Ratio 13.5 (10-20) Calcium Level 8.7 mg/dl (8.5-10.1) Total Bilirubin 0.5 mg/dl (0.2-1) Direct Bilirubin 0.1 mg/dl (0-0.2) Aspartate Amino Transf (AST/SGOT) 19 U/L (15-37) Alanine Aminotransferase (ALT/SGPT) 22 U/L (12-78) Alkaline Phosphatase 74 U/L (45-117) Total Protein 6.7 gm/dl (6.4-8.2) Albumin 3.0 gm/dl (3.4-5.0) Laboratory results per my review. Medications Administered Medications (Trade) Dose Ordered Sig/Myron Route Start Time Stop Time Status Last Admin Dose Admin Hydromorphone HCl (Dilaudid Inj) 0.5 mg NOW STAT IV 04/10/17 04:51 04/10/17 04:54 DC 04/10/17 05:13 0.5 MG Ondansetron HCl (Zofran Inj) 4 mg STK-MED ONCE .ROUTE 04/10/17 05:19 04/10/17 05:20 DC 04/10/17 05:19 4 MG Ondansetron HCl (Zofran Inj) 4 mg NOW STAT IV 04/10/17 05:59 04/10/17 06:01 DC 04/10/17 06:07 4 MG Ketorolac Tromethamine (Toradol Inj) 30 mg NOW STAT IV 04/10/17 07:03 04/10/17 07:04 DC 04/10/17 07:09 30 MG Diphenhydramine HCl (Benadryl Cap) 25 mg NOW ONCE PO 04/10/17 07:15 04/10/17 07:16 DC 04/10/17 07:26 25 MG Ampicillin Sodium/ Sulbactam Sodium 3000 mg/Sodium Chloride 108 ml @ 200 mls/hr ONE ONCE IV 04/10/17 07:30 04/10/17 08:02 DC 04/10/17 07:39 200 MLS/HR Procedure Dilaudid Inj 0.5mg IV, Zofran Inj 4mg, Zofran Inj 4mg IV, Toradol Inj 30mg IV, Benadryl Cap 25mg PO, and Ampicillin Sodium/Sulbactam Sodium 3000mg/Sodium Chloride 108 ml @ 200mls/hr IV. ECG Per My Interpretation Indication: weakness, other (Severe headache) Rate (beats per minute): 80 Rhythm: normal sinus Findings: no acute ischemic change, no ectopy ED Course 0440: Past medical records reviewed. The patient was evaluated in room B5. A complete history and physical exam was performed. An IV lock was initiated and labs were drawn as above. A 12-lead EKG was obtained as described above. 0451: Dilaudid Inj 0.5mg IV. The patient went for a CT scan of her brain. 0519: Zofran Inj 4mg IV 0539: Patient's electrocardiogram was interpreted by me. 0559: The patient continued to complain of nausea and was dry heaving. I ordered Zofran Inj 4mg IV 0703: Patient is complaining of a severe headache. She vomited thick yellow mucous while I was in the room. She states she has been blowing out hard yellow mucous. She adds that she is still nauseated. She is convinced she has influenza. 0704: Toradol Inj 30mg IV 0715: Benadryl Cap 25mg PO 0730: After reviewing the CAT scan reading by our radiologists here, it seems that the patient has significant maxillary sinusitis with opacification of the sinuses. Ampicillin Sodium/Sulbactam Sodium 3000mg/Sodium Chloride 108 ml @ 200mls/hr IV 0735: Upon reevaluation, I discussed findings and results with her. She verbalized agreement of the treatment plan. I spoke with Dr. Amato of the [facility]. The patient will be evaluated for further management and care. Medical Decision The patient is a 76 year old female who presents to the ED with a headache. Differential diagnosis includes influenza, tension headache, migraine, dehydration, intracranial hemorrhage, and intracranial mass. Lab results show influenza testing negative, no leukocytosis, LFTs normal, glucose = 108, normal renal function, and hemoglobin = 11.6 which is baseline. This is a 76-year-old female patient who presents to the emergency department with a severe left-sided headache. CT scan of the brain was initially read by stat read as unremarkable. The patient and her boyfriend gives a history of significant thick yellow discharge from the nose. This would coincide with significant sinusitis as was documented on the radiology reading from the hospital. She was started on IV Unasyn. The patient was afebrile and had no significant leukocytosis. We did add a PCR test for influenza which was negative. The patient's head pain and vomiting seemed intractable where she received multiple doses of pain medication and antiemetics with persistent symptoms. I discussed the case with the hospitalist and they will evaluate for further management. Medication Reconcilliation Current Medication List: was personally reviewed by me Blood Pressure Screening Patient's blood pressure: Elevated blood pressure Secondary to pain. Consults Time Called: [phone] Consulting Physician: Dr. Amato - [facility] [place] Returned Call: 07 Discussed the patient's case. The patient will be evaluated for further management. Impression Primary Impression: Sinusitis Additional Impression: Intractable headache Scribe Attestation The scribe's documentation has been prepared under my direction and personally reviewed by me in its entirety. I confirm that the note above accurately reflects all work, treatment, procedures, and medical decision making performed by me. Departure Information Dispostion Being Evaluated By Hospitalist Prescriptions Amoxicillin & Pot Clavulanate (Augmentin 875-125 mg) 1 Tab Tab 875 MG PO BID for 9 Days, #18 TAB Prov: Jennifer Amato MD 04/11/17 Referrals Murali Kolb M.D. (PCP) Forms HOME CARE DOCUMENTATION FORM, IMPORTANT VISIT INFORMATION Patient Instructions My [facility] Problem Qualifiers Primary Impression: Sinusitis Sinusitis location: maxillary Chronicity: acute Recurrence: not specified as recurrent Qualified Codes: J01.00 - Acute maxillary sinusitis, unspecified Additional Impression: Intractable headache Headache type: unspecified Headache chronicity pattern: acute headache Qualified Codes: R51 - Headache
[2017-04-10] MEDS ORDERED: ONDANSETRON INJ 2 MG/ML 2 ML VIAL ONE (05:19)
[2017-04-10 05:32] LABS: INFLUENZA B ANTIGEN Neg for Influ B (NEG)
[2017-04-10] MEDS ORDERED: GING1CAP2 PO (05:42)
[2017-04-10] MEDS ORDERED: LEVO50TA6 PO (05:43)
[2017-04-10] MEDS ORDERED: PRED10TA PO (05:46)
[2017-04-10] MEDS ORDERED: CETI10TA84 PO (05:48)
[2017-04-10] MEDS ORDERED: COEN1CAP17 PO (05:50)
[2017-04-10] MEDS ORDERED: OMEG10007 PO (05:52)
[2017-04-10] MEDS ORDERED: NUTRTAB40 PO (05:54)
[2017-04-10] MEDS ORDERED: FURO-85 PO (05:57)
[2017-04-10] MEDS ORDERED: ONDANSETRON INJ 2 MG/ML 2 ML VIAL IV STA (05:59)
[2017-04-10 06:17] LABS: BASO % 0.4 %; BASO ABS # 0.04 K/uL (0-0.2); EOS % 1.3 %; EOS ABS # 0.12 K/uL (0-0.5); HEMATOCRIT 35.1 % (37-47); HEMOGLOBIN 11.6 g/dL (12.0-16.0); IG# 0.01 K/uL (0.00-0.02); LYMPH % 23.8 %; LYMPH ABS # 2.24 K/uL (1.2-3.4); MEAN CELL VOLUME 80.3 fL (80-100); MEAN CORPUSCULAR HEMOGLOBIN 26.5 pg (25-34); MEAN PLATELET VOLUME 9.3 fL (7.4-10.4); MONO % 5.8 %; MONO ABS # 0.55 K/uL (0.11-0.59); NEUT % 68.6 %; NEUT ABS # 6.45 K/uL (1.4-6.5); PLATELET COUNT 261 K/uL (130-400); RED CELL DISTRIBUTION WIDTH CV 14.8 % (11.5-14.5); WHITE BLOOD COUNT 9.41 K/uL (4.8-10.8)
--- NOTE | 2017-04-10 06:41 | DIAGNOSTIC IMAGING REPORT ---
HEAD CT NONCONTRAST CT DOSE: 537.48 mGy.cm HISTORY: severe left sided head ache TECHNIQUE: Multiaxial CT images of the head were performed without the use of intravenous contrast. Automated exposure control was utilized for this study. A dose lowering technique was utilized adhering to the principles of ALARA. Comparison: Head CT 04/01/2016. Findings: Near complete opacification of the left maxillary sinus. There are fluid levels seen throughout the majority of the paranasal sinuses. The mastoid air cells are clear. The calvarium and skull base are intact. There is no mass, hematoma, midline shift, acute infarct. White matter hypodensity is nonspecific but suggestive of microvascular ischemic change. The ventricles and sulci demonstrate mild age-related involutional changes. Impression: No acute intracranial abnormality. Acute paranasal sinusitis most pronounced within the left maxillary sinus with near complete opacification. Electronically signed by: Cameron Mills M.D. 04/10/2017 6:39 AM Dictated Date/Time: 04/10/2017 6:35 AM
[2017-04-10 06:48] LABS: CALCIUM 8.7 mg/dl (8.5-10.1); CREATININE 1.01 mg/dl (0.60-1.20); POTASSIUM 3.4 mmol/L (3.5-5.1)
[2017-04-10 06:51] LABS: TOTAL PROTEIN 6.7 gm/dl (6.4-8.2)
[2017-04-10] MEDS ORDERED: KETOROLAC TROMETHAMINE 30 MG/ML VIAL IV STA (07:03)
[2017-04-10] MEDS ORDERED: AMPICILLIN/SULBACTAM SOD INJ 3,000 MG in SODIUM CHLORIDE 0.9% 100ML 100 ML IV ONE (07:30)
[2017-04-10 08:31] LABS: INFLUENZA A PCR Neg for Influ A (NEG); INFLUENZA B PCR Neg for Influ B (NEG)
[2017-04-10] MEDS ORDERED: ONDANSETRON INJ 2 MG/ML 2 ML VIAL IV PRN (09:15)
[2017-04-10] MEDS ORDERED: HYDROmorphone INJ 0.5 MG/0.5 ML SYR IV PRN (09:15)
[2017-04-10] MEDS ORDERED: MoRPHine SULFATE 2 MG/ML CARP IV PRN (09:15)
--- NOTE | 2017-04-10 09:28 | History and Physical ---
History & Physical Date & Time of Service: Apr 10, 2017 at 08:47 Chief Complaint: Headache,Nausea,Confusion,Flu? Primary Care Physician: Murali Kolb M.D. History of Present Illness Source: patient Ms. Schmid has had a headache starting last night in the top left of her head. She has had nausea and vomiting since then. She is not photophobic, no neck pain or stiffness. Recent flu like illness. She has been coughing up thick yellow mucous that she has been feeling drain down the back of her throat. No fevers or aches, she does feel cold. Pmhx: CAD, chronic sinusitis, cough, dyslipidemia, GERD, htn, hypothyroidism, edema ROS Constitutional: see HPI Respiratory: mild sob,cough, sputum, or wheezing Cardiac: no chest pain, palpitations, edema, orthopnea or lightheadedness GI: no abdominal pain, nausea, vomiting, diarrhea or constipation : no dysuria or hesitancy Extremities: no joint pain or weakness Skin: no rash All other systems reviewed and negative Past Medical/Surgical History Family History FH: cancer FH: heart disease FH: stroke FATHER Hypertension Social History Smoking Status: Never Smoker Smokeless Tobacco Use: No Alcohol Use: none Drug Use: none Marital Status: , in relationship Housing status: lives with significant other Occupational Status: retired Immunizations History of Influenza Vaccine: No History of Tetanus Vaccine?: Unknown History of Pneumococcal: Yes History of Hepatitis B Vaccine: No Multi-Drug Resistant Organisms History of MDRO: No Allergies Coded Allergies: Iodinated Diagnostic Agents (Verified Allergy, Unknown, ., 11/21/16) Statins (Verified Allergy, Unknown, UNSURE, 11/21/16) Clarithromycin (Verified Adverse Reaction, Intermediate, NAUSEA, 11/21/16) Home Medications Scheduled Aspirin (Aspirin Ec), 81 MG PO QAM Cetirizine (Zyrtec), 10 MG PO DAILY Cholecalciferol (Vitamin D3), 2,000 UNITS PO AMPM Coenzyme Q10 (Ubidecarenone) (Co Q 10), 100 MG PO BID Fish Oil ([place]-3), 1 CAP PO DAILY Debra (Zingiber Officinalis) (Debra Root), 250 MG PO DAILY Levothyroxine Sodium (Levothyroxine Sodium), 50 MCG PO DAILY Losartan Potassium (Cozaar), 25 MG PO QAM Metoprolol Succinate (Toprol Xl), 25 MG PO QPM Misc Natural Products (Curcumax Pro), 1 TAB PO QAM Nutritional Supplements ([place]), 1 TAB PO QPM Scheduled PRN Furosemide (Lasix), 20 MG PO DAILY PRN for EDEMA Prednisone Tab (Prednisone), 10 MG PO DAILY PRN for UNDECIDED Physical Exam Vital Signs Date Time Temp Pulse Resp B/P (MAP) Pulse Ox O2 Delivery O2 Flow Rate FiO2 04/10/17 08:00 82 18 139/74 98 Room Air 04/10/17 07:45 36.9 04/10/17 06:41 77 17 98 04/10/17 06:30 140/67 04/10/17 06:26 74 16 96 04/10/17 06:11 75 19 97 04/10/17 06:06 72 16 94 04/10/17 06:00 151/86 04/10/17 05:21 96 99 04/10/17 05:16 85 23 99 04/10/17 05:06 81 04/10/17 05:02 108/87 04/10/17 05:01 84 100 04/10/17 04:46 75 22 98 Room Air 04/10/17 04:43 147/81 04/10/17 04:20 36.3 77 18 157/91 97 Room Air General: no distress Eyes: normal inspection, PERLL Respiratory: chest non tender, clear to auscultation, normal breath sounds, no respiratory distress, no accessory muscle use Cardiac: regular rate and rhythm, no rub or gallop, no murmur, no edema, no jvd GI/: active bowel sounds, no abd pain or tenderness, soft, non distended Extremities: normal range of motion, normal strength, non tender Neuro/Psych: alert and oriented x 3, normal mood and affect Skin: normal color, dry Diagnostics Laboratory Results Results Past 24 Hours Test 04/10/17 04:50 04/10/17 05:59 Range/Units Influenza Type A (RT-PCR) Neg for Influ A NEG Influenza Type A Antigen Neg for Influ A NEG Influenza Type B Antigen Neg for Influ B NEG Influenza Type B (RT-PCR) Neg for Influ B NEG White Blood Count 9.41 4.8-10.8 K/uL Red Blood Count 4.37 4.2-5.4 M/uL Hemoglobin 11.6 12.0-16.0 g/dL Hematocrit 35.1 37-47 % Mean Corpuscular Volume 80.3 80-100 fL Mean Corpuscular Hemoglobin 26.5 25-34 pg Mean Corpuscular Hemoglobin Concent 33.0 32-36 g/dl Platelet Count 261 130-400 K/uL Mean Platelet Volume 9.3 7.4-10.4 fL Neutrophils (%) (Auto) 68.6 % Lymphocytes (%) (Auto) 23.8 % Monocytes (%) (Auto) 5.8 % Eosinophils (%) (Auto) 1.3 % Basophils (%) (Auto) 0.4 % Neutrophils # (Auto) 6.45 1.4-6.5 K/uL Lymphocytes # (Auto) 2.24 1.2-3.4 K/uL Monocytes # (Auto) 0.55 0.11-0.59 K/uL Eosinophils # (Auto) 0.12 0-0.5 K/uL Basophils # (Auto) 0.04 0-0.2 K/uL RDW Standard Deviation 43.0 36.4-46.3 fL RDW Coefficient of Variation 14.8 11.5-14.5 % Immature Granulocyte % (Auto) 0.1 % Immature Granulocyte # (Auto) 0.01 0.00-0.02 K/uL Sodium Level 139 136-145 mmol/L Potassium Level 3.4 3.5-5.1 mmol/L Chloride Level 104 98-107 mmol/L Carbon Dioxide Level 28 21-32 mmol/L Anion Gap 6.0 3-11 mmol/L Blood Urea Nitrogen 14 7-18 mg/dl Creatinine 1.01 0.60-1.20 mg/dl Est Creatinine Clear Calc Drug Dose 48.6 ml/min Estimated GFR () 61.7 Estimated GFR (Non- 53.3 BUN/Creatinine Ratio 13.5 10-20 Random Glucose 108 70-99 mg/dl Calcium Level 8.7 8.5-10.1 mg/dl Total Bilirubin 0.5 0.2-1 mg/dl Direct Bilirubin 0.1 0-0.2 mg/dl Aspartate Amino Transf (AST/SGOT) 19 15-37 U/L Alanine Aminotransferase (ALT/SGPT) 22 12-78 U/L Alkaline Phosphatase 74 45-117 U/L Total Protein 6.7 6.4-8.2 gm/dl Albumin 3.0 3.4-5.0 gm/dl Diagnostic Radiology HEAD CT NONCONTRAST CT DOSE: 537.48 mGy.cm HISTORY: severe left sided head ache TECHNIQUE: Multiaxial CT images of the head were performed without the use of intravenous contrast. Automated exposure control was utilized for this study. A dose lowering technique was utilized adhering to the principles of ALARA. Comparison: Head CT 04/01/2016. Findings: Near complete opacification of the left maxillary sinus. There are fluid levels seen throughout the majority of the paranasal sinuses. The mastoid air cells are clear. The calvarium and skull base are intact. There is no mass, hematoma, midline shift, acute infarct. White matter hypodensity is nonspecific but suggestive of microvascular ischemic change. The ventricles and sulci demonstrate mild age-related involutional changes. Impression: No acute intracranial abnormality. Acute paranasal sinusitis most pronounced within the left maxillary sinus with near complete opacification. Electronically signed by: Camreon Mills M.D. 04/10/2017 6:39 AM Dictated Date/Time: 04/10/2017 6:35 AM Normal EKG Impression Assessment and Plan Ms. Schmid is a 76 year old woman here for sinusitis with intractable headache Sinusitis/headache - admit obs med/surg - Ampicillin sulbactam, pain control, IVF - CT showed acute left maxillary sinusitis - Zofran prn for nausea Hypokalemia - NSS 20K @ 100 ml/hr Hypothyroid - continue home dose levothyroxine HTN/CAD - continue home dose losartan, metoprolol and DANNY DVT prophylaxis - enoxaprin/scds Full code Advanced Directives Existing Advance Directive: No Existing Living Will: No Existing Power of Operating Room Surgical Technician: No Resuscitation Status FULL RESUSCITATION Reviewed: Pt Seen/Exam by Me History DANIEL Supervision Note: I interviewed and examined the patient. Discussed with DANIEL Kolb and agree with findings and plan as documented in the note. Any exceptions or clarifications are listed here: Pt is a 76 yo female with a h/o chronic sinusitis, CAD s/p CHRISTINE to LAD 09/2015, HTN, chronic diastolic CHF, GERD, HL, hypothyroidism, allergic rhinitis, possible asthma, and chronic bronchitis, here with intractable left frontal headache, with N/V, and found to have acute left maxillary sinusitis. Afebrile. No CP or SOB but has chronic cough. Has a h/o sinus surgery with Dr. Rutherford in 2013 and a h/o Pseudomonas PNA found on bronchoscopy with BAL in 2015. Vitals reviewed, afebrile NAD, AAOx3 No facial swelling or erythema, no TTP over facial bones RRR no mgr nl S1S2 CTAB no wcr, breathing unlabored Abd +BS soft NT ND Ext trace nonpitting edema bilat, calves nontender 76 yo female here with acute left maxillary sinusitis, intractable CUEVAS and N/V. No signs/symptoms of meningitis. Not septic. Received multiple doses of antiemetics and pain meds in ER -admitted for IVFs, antiemetics, pain control and will provide IV Unasyn for sinusitis-if not improving, consider switching to Levaquin given h/o Pseudomonas (was sensitive to FQs in 2015) -hopefully can be discharged to home tomorrow if improved Documented By: Jennifer Amato
[2017-04-10 10:30] VITALS: BP 149/74; PULSE 91; TEMP 37.3; O2SAT 95; Ht 165.1 cm; Wt 82.2 kg
[2017-04-10] MEDS ORDERED: IV FLUIDS COMPLETED PRN (10:30)
[2017-04-10] MEDS ORDERED: ENOXAPARIN 40 MG/0.4 ML SYR SQ SCH (14:00)
[2017-04-10] MEDS: NSS + 20MEQ KCL 1000ML 1,000 ML IV SCH (14:26)
[2017-04-10] MEDS: AMPICILLIN/SULBACTAM SOD INJ 3,000 MG in SODIUM CHLORIDE 0.9% 100ML 100 ML IV SCH ×2 (14:26→20:30)
[2017-04-10] MEDS: ACETAMINOPHEN 500 MG TAB PO SCH ×3 (14:26→20:34)
[2017-04-10 15:39] VITALS: BP 113/69; PULSE 70; TEMP 36.9; O2SAT 96
[2017-04-10] MEDS ORDERED: POLYETHYLENE (MIRALAX) 17 GM PACK PO PRN (19:00)
[2017-04-10] MEDS: CHOLECALCIFEROL 1000 INTER.UNIT TAB PO SCH (20:36)
[2017-04-10] MEDS ORDERED: METOPROLOL SUCC 25MG EXT REL TAB PO SCH (21:00)
[2017-04-11] MEDS: NSS + 20MEQ KCL 1000ML 1,000 ML IV SCH ×2 (00:27→09:36)
[2017-04-11 00:38] VITALS: BP 108/63; PULSE 69; TEMP 36.9; O2SAT 96
[2017-04-11] MEDS: AMPICILLIN/SULBACTAM SOD INJ 3,000 MG in SODIUM CHLORIDE 0.9% 100ML 100 ML IV SCH ×2 (02:29→09:36)
[2017-04-11] MEDS: ACETAMINOPHEN 500 MG TAB PO SCH ×4 (06:27→12:59)
[2017-04-11] MEDS ORDERED: LEVOTHYROXINE 50 MCG TAB PO SCH (06:30)
[2017-04-11 07:01] VITALS: BP 130/76; PULSE 64; TEMP 36.9; O2SAT 95
[2017-04-11] MEDS ORDERED: CETIRIZINE HCL 10 MG TAB PO SCH (09:00)
[2017-04-11] MEDS ORDERED: LOSARTAN POTASSIUM 25 MG TAB PO SCH (09:00)
[2017-04-11] MEDS ORDERED: ASPIRIN 81 MG ECTAB PO SCH (09:00)
[2017-04-11] MEDS ORDERED: OMEGA-3 (PURIFIED FISH OIL) 1 GM CAP PO SCH (09:00)
[2017-04-11] MEDS: CHOLECALCIFEROL 1000 INTER.UNIT TAB PO SCH (09:46)
[2017-04-11] MEDS ORDERED: AMOX875T PO ×2 (12:16→14:07)
--- NOTE | 2017-04-11 12:17 | Discharge Instructions ---
Discharge Instructions Date of Service Apr 11, 2017. Admission Reason for Admission: Intractable Headache, Sinusitis Discharge Discharge Diagnosis / Problem: Intractable headache, sinusitis Discharge Goals Goal(s): Improve disease control Activity Recommendations Activity Limitations: resume your previous activity . Instructions / Follow-Up Instructions / Follow-Up Please start the Augmentin prescription tonight. Please follow up with your primary care provider within about a week Current Hospital Diet Patient's current hospital diet: AHA Diet (Heart Healthy) Discharge Diet Recommended Diet: AHA Diet (Heart Healthy) Procedures Procedures Performed: head CT Pending Studies Studies pending at discharge: no Laboratory Results Lipid Panel Test 03/04/17 13:30 Range/Units Triglycerides Level 144 0-150 mg/dl Cholesterol Level 214 H 0-200 mg/dl HDL Cholesterol 40 mg/dl Cholesterol/HDL Ratio 5.4 LDL Cholesterol, Calculated 145 mg/dl Medical Emergencies . Who to Call and When: Medical Emergencies: If at any time you feel your situation is an emergency, please call 911 immediately. . Non-Emergent Contact Non-Emergency issues call your: Primary Care Provider Call Non-Emergent contact if: you have a fever, your pain is not controlled, you have any medication questions . . "Provider Documentation" section prepared by Ana Kolb. . VTE Core Measure Inpt VTE Proph given/why not?: Enoxaparin (Lovenox)SQ
--- NOTE | 2017-04-11 12:22 | Discharge Summary ---
Discharge Summary Date of Service Apr 11, 2017. Discharge Summary Admission Date: Apr 10, 2017 at 09:22 Discharge Date: Apr 11, 2017 Discharge Disposition: Home Principal Diagnosis: intractable headache, acute sinusitis Problems/Secondary Diagnoses: Hypokalemia Hypothyroidism HTN Chronic sinusitis History of pseudomonal pneumonia CAD s/p CHRISTINE to LAD 09/2015 Chronic diastolic CHF GERD HL Allergic rhinitis Possible asthma, and chronic bronchitis Immunizations: Have You Had Influenza Vaccine: No History of Tetanus Vaccine?: Unknown History of Pneumococcal: Yes History of Hepatitis B Vaccine: No Procedures: HEAD CT NONCONTRAST CT DOSE: 537.48 mGy.cm HISTORY: severe left sided head ache TECHNIQUE: Multiaxial CT images of the head were performed without the use of intravenous contrast. Automated exposure control was utilized for this study. A dose lowering technique was utilized adhering to the principles of ALARA. Comparison: Head CT 04/01/2016. Findings: Near complete opacification of the left maxillary sinus. There are fluid levels seen throughout the majority of the paranasal sinuses. The mastoid air cells are clear. The calvarium and skull base are intact. There is no mass, hematoma, midline shift, acute infarct. White matter hypodensity is nonspecific but suggestive of microvascular ischemic change. The ventricles and sulci demonstrate mild age-related involutional changes. Impression: No acute intracranial abnormality. Acute paranasal sinusitis most pronounced within the left maxillary sinus with near complete opacification. Electronically signed by: Cameron Mills M.D. Consultations: None Medication Reconciliation New Medications: Amoxicillin & Pot Clavulanate (Augmentin 875-125 mg) 1 Tab Tab 875 MG PO BID for 6 Days, #11 TAB Continued Medications: Aspirin (Aspirin Ec) 81 Mg Tab 81 MG PO QAM Cetirizine (Zyrtec) 10 Mg Tab 10 MG PO DAILY, TAB Cholecalciferol (Vitamin D3) 2,000 Unit Tab 2000 UNITS PO AMPM Coenzyme Q10 (Ubidecarenone) (Co Q 10) 100 Mg Cap 100 MG PO BID Fish Oil (Spencer-3) 1 Ea Cap 1 CAP PO DAILY, CAP Furosemide (Lasix) 20 Mg Tab 20 MG PO DAILY PRN for EDEMA, TAB Debra (Zingiber Officinalis) (Debra Root) 250 Mg Cap 250 MG PO DAILY Levothyroxine Sodium (Levothyroxine Sodium) 50 Mcg Tab 50 MCG PO DAILY Losartan Potassium (Cozaar) 25 Mg Tab 25 MG PO QAM Metoprolol Succinate (Toprol Xl) 25 Mg Tab 25 MG PO QPM Misc Natural Products (Curcumax Pro) 1 Tab Tab 1 TAB PO QAM Nutritional Supplements (Estroven) 1 Tab Tab 1 TAB PO QPM Prednisone Tab (Prednisone) 10 Mg Tab 10 MG PO DAILY PRN for UNDECIDED, TAB Discharge Exam ROS Constitutional: no chills, aches, sweats or fever Respiratory: no sob,cough, sputum, or wheezing Cardiac: no chest pain, palpitations, edema, orthopnea or lightheadedness GI: no abdominal pain, nausea, vomiting, diarrhea or constipation : no dysuria or hesitancy Extremities: no joint pain or weakness Skin: no rash All other systems reviewed and negative PE General: no distress Eyes: normal inspection, PERLL Respiratory: chest non tender, clear to auscultation, normal breath sounds, no respiratory distress, no accessory muscle use Cardiac: regular rate and rhythm, no rub or gallop, no murmur, no edema, no jvd GI/: active bowel sounds, no abd pain or tenderness, soft, non distended Extremities: normal range of motion, normal strength, non tender Neuro/Psych: alert and oriented x 3, normal mood and affect Skin: normal color, dry Hospital Course Ms. Schmid is a 76 year old woman here for sinusitis with intractable headache as well as nausea and vomiting. Sinusitis/headache - admitted obs med/surg - Ampicillin sulbactam, pain control, IVF - pain requiring only acetaminophen today, changed abx to augmentin for 7 days for home - CT showed acute left maxillary sinusitis - Zofran prn for nausea - no further nausea today, eating and drinking well Hypokalemia - NSS 20K @ 100 ml/hr Hypothyroid - continued home dose levothyroxine HTN/CAD - continued home dose losartan, metoprolol and DANNY Total Time Spent: Greater than 30 minutes This includes examination of the patient, discharge planning, medication reconciliation, and communication with other providers. Discharge Instructions Please refer to the electronic Patient Visit Report (Discharge Instructions) for additional information. Follow-Up pcp in about a week Additional Copies To Murali Kolb M.D. Reviewed: Pt Seen/Exam by Me History [employer] Supervision Note: I interviewed and examined the patient. Discussed with DANIEL Kolb and agree with findings and plan as documented in the note. Any exceptions or clarifications are listed here: Pt is a 76 yo female with a h/o chronic sinusitis, CAD s/p CHRISTINE to LAD 09/2015, HTN, chronic diastolic CHF, GERD, HL, hypothyroidism, allergic rhinitis, possible asthma, and chronic bronchitis, here with intractable left frontal headache, with N/V, and found to have acute left maxillary sinusitis. Afebrile. No CP or SOB but has chronic cough. Has a h/o sinus surgery with Dr. Rutherford in 2011 and at [facility] again in 2013, as well as a h/o Pseudomonas PNA found on bronchoscopy with BAL in 2014. She was admitted and provided with IV fluids, IV Unasyn, and had significant improvement by the next morning. She was ready for discharge. She will go home on a total of 10 days of Augmentin and follow-up closely with her PCP. -I recommend that she follow-up with the ENT surgeon that she saw before done at her she given her ongoing chronic sinus issues. Vitals reviewed, afebrile NAD, AAOx3 No facial swelling or erythema, no TTP over facial bones RRR no mgr nl S1S2 CTAB no wcr, breathing unlabored Abd +BS soft NT ND Ext trace nonpitting edema bilat, calves nontender Documented By: Jennifer Amato
[2017-04-11 14:42] VITALS: BP 130/76; PULSE 64; TEMP 36.9; O2SAT 95
== END 2017-04-11 15:35 | disposition home or self-care (01) ==
LOC: C.EDB 04:17 → C.MS2W 09:22 → ENRESERV 09:42
PROVIDERS: ADMIT Family Medicine; ATTEND Family Medicine
DX: R51 Headache (principal); J01.90 Acute sinusitis, unspecified; E87.6 Hypokalemia; E03.9 Hypothyroidism, unspecified; I11.0 Hypertensive heart disease with heart failure; J32.9 Chronic sinusitis, unspecified; Z87.01 Personal history of pneumonia (recurrent); I25.10 Atherosclerotic heart disease of native coronary artery without angina pectoris; I50.32 Chronic diastolic (congestive) heart failure; K21.9 Gastro-esophageal reflux disease without esophagitis; Z79.82 Long term (current) use of aspirin; Z79.899 Other long term (current) drug therapy; Z88.1 Allergy status to other antibiotic agents; Z80.9 Family history of malignant neoplasm, unspecified; Z82.49 Family history of ischemic heart disease and other diseases of the circulatory system

== ENCOUNTER → 2017-05-12 | Outpatient (CLI) | payer BC ==
[~2017-05-12] MED LIST changes: +CETI10TA84 PO; -CIPR-255 PO; +COEN1CAP17 PO; +FURO-85 PO; -LEVO25TA5 PO; +LEVO50TA6 PO; +OMEG10007 PO; -OMEG12006 PO; -ONDA4TAB10 SL; +PRED10TA PO; -[UNRECOGNIZED DRUG - OTHER] PO
== END | disposition home or self-care (01) ==
LOC: C.PAPS 16:33
PROVIDERS: ATTEND Obstetrics & Gynecology
DX: R87.623 High grade squamous intraepithelial lesion on cytologic smear of vagina (HGSIL) (principal); R87.612 Low grade squamous intraepithelial lesion on cytologic smear of cervix (LGSIL)

== ENCOUNTER → 2017-06-04 | Outpatient (CLI) | payer BC ==
--- NOTE | 2017-06-04 13:05 | DIAGNOSTIC IMAGING REPORT ---
SINUSES MIN 3 VIEWS ROUTINE HISTORY: 77 years-old Female J32.9 Chronic sinusitis COMPARISON: CT head 04/10/2017 TECHNIQUE: 4 views of the paranasal sinuses FINDINGS: Near complete opacification of the left maxillary sinus with moderate opacification of the right maxillary sinus. Ethmoid air cells and sphenoid sinuses are also partially opacified. Frontal sinuses appear clear. No acute facial bone fracture or dislocation identified. IMPRESSION: Paranasal sinus disease as above. The above report was generated using voice recognition software. It may contain grammatical, syntax or spelling errors. Electronically signed by: Ian Maravilla M.D. 06/04/2017 1:04 PM Dictated Date/Time: 06/04/2017 1:02 PM
== END | disposition home or self-care (01) ==
LOC: C.LAB1850 12:37
PROVIDERS: ATTEND Nurse Practitioner
DX: J32.8 Other chronic sinusitis (principal)

== ENCOUNTER 2019-06-07 08:55 | Inpatient (IN) ==
[2019-06-07] MEDS ORDERED: SODIUM CHLORIDE 0.9% 1000ML 1,000 ML IV SCH (09:30)
[2019-06-07 09:34] LABS: Basophils # (auto) 0.06 K/uL (0-0.2); Basophils % (auto) 1.2 %; Eosinophils # (auto) 0.27 K/uL (0-0.5); Eosinophils % (auto) 5.5 %; Hematocrit (blood only) 37.6 % (37-47); Hemoglobin 11.9 g/dL (12.0-16.0); Immature Granulocytes # (auto) 0.01 K/uL (0.00-0.02); Immature Granulocytes % (auto) 0.2 %; Lymphocytes # (auto) 1.51 K/uL (1.2-3.4); Lymphocytes % (auto) 30.8 %; Mean Corpuscular Hgb Conc 31.6 g/dL (32-36); Mean Corpuscular Volume 85.3 fL (80-100); Mean Platelet Volume 9.9 fL (7.4-10.4); Monocytes # (auto) 0.37 K/uL (0.11-0.59); Monocytes % (auto) 7.6 %; Neutrophils # (auto) 2.68 K/uL (1.4-6.5); Neutrophils % (auto) 54.7 %; Platelet Count 215 K/uL (130-400); RDW Coefficient of Variation 13.7 % (11.5-14.5); RDW Standard Deviation 42.6 fL (36.4-46.3); Red Blood Count 4.41 M/uL (4.2-5.4)
[2019-06-07 09:48] LABS: Alanine Aminotransferase 16 U/L (12-78); Albumin Level 3.3 gm/dl (3.4-5.0); Aspartate Aminotransferase 19 U/L (15-37); BUN Creatinine Ratio 22.8 (10-20); Blood Urea Nitrogen 23 mg/dl (7-18); Calcium 9.2 mg/dl (8.5-10.1); Carbon Dioxide 28 mmol/L (21-32); Chloride 108 mmol/L (98-107); Creatinine Clr Calc Pharmacy 42.6 ml/min; Est GFR (African American) 59.7; Est GFR (Non-African American) 51.5; Glucose 89 mg/dl (70-99); Magnesium 2.2 mg/dl (1.8-2.4); Sodium 140 mmol/L (136-145)
--- NOTE | 2019-06-07 09:49 | CT Scan Report ---
CT head/brain wo con CLINICAL HISTORY: 79 years-old Female with Dizzy. Acute dizziness TECHNIQUE: Multiple axial CT images of the head were obtained without contrast. A dose lowering tech nique was utilized adhering to the principles of ALARA. CT DOSE: 537.48 mGy.cm COMPARISON: Head CT 01/20/2019 FINDINGS: No acute intracranial hemorrhage, midline shift, intracranial mass, hydrocephalus, territorial ischem ia or abnormal extra-axial collection. Age-related involutional changes. Mild patchy white matter hyp odensities suggest chronic microvascular ischemic disease. The calvarium is intact. Postoperative changes of the paranasal sinuses compatible with prior bilate ral maxillary antrostomy and partial ethmoidectomy. Severe caudal thickening of the right sphenoid si nus. Mastoid air cells are clear. Soft tissues are unremarkable. Prior bilateral lens replacement. IMPRESSION: No acute intracranial abnormality. ACT 112: Negative or not required by law. The above report was generated using voice recognition software. It may contain grammatical, syntax o r spelling errors. Electronically signed by: Ian Maravilla M.D. 06/07/2019 9:48 AM
[2019-06-07 09:58] LABS: Alkaline Phosphatase 72 U/L (45-117); Bilirubin,Total 0.5 mg/dl (0.2-1); Globulin 3.4 gm/dl (2.5-4.0); Total Protein 6.7 gm/dl (6.4-8.2); Troponin I < 0.015 ng/ml (0-0.045)
--- NOTE | 2019-06-07 10:50 | Emergency Department Note ---
History of Present Illness General Chief complaint: Vertigo Stated complaint: DIZZY Time Seen by Provider: 06/07/19 09:04 History of Present Illness Maximum Pain Intensity: 0 This is an 79-year-old female presenting to the emergency department for evaluation of dizziness that began around 10 PM or 11 PM last evening, roughly 9 to 10 hours prior to arrival. The patient states that position seems to worsen her discomfort, and laying back makes things better. When she sits up the objec ts in her periphery seem to start moving and spinning. The patient does not have head, neck, chest, or abdominal pain. No nausea or vomiting. The patient does have some recent URI symptoms and is on amoxicillin for what sounds like sinus congestion and postnasal drip. The symptoms have improved since beginning the antibiotic last week, but the dizziness is new. The patient does report old history of TIA but has not had any difficulty with memory or moving arms or legs. Additionally she has a history of cardiac stenting, and follows with Dr. Fabian of cardiology. The patient rates her current discomfort a 0/10. No recent travel history. Home Medications Home Medications Medication Instructions Recorded Confirmed Type Curcumin 1 dose MISCELLANEOUS QA 12/12/17 06/07/19 History Estroven 1 tab PO HS 12/12/17 06/07/19 History aspirin [Aspir-81] 81 mg PO HS 12/12/17 06/07/19 History coenzyme Q10 [CoQ-10] 100 mg PO HS 12/12/17 06/07/19 History lesley (Zingiber officinalis) 550 mg PO QAM 12/12/17 06/07/19 History losartan 25 mg PO QDL 12/12/17 06/07/19 History metoprolol succinate 25 mg PO HS 12/12/17 06/07/19 History omega 4-lkp-kar-fish oil [Fish Oil] 1,000 mg PO QAM 12/12/17 06/07/19 History cholecalciferol (vitamin D3) 50 2,000 unit PO QAM cap 04/28/19 06/07/19 History mcg (2,000 unit) capsule amoxicillin 875 mg-potassium 1 tab PO BID 10 Days #20 tab 05/31/19 06/07/19 Rx clavulanate 125 mg tablet Probiotic 500mg Capsules 500 mg PO DAILY@1800 06/07/19 06/07/19 History levothyroxine 50 mcg PO QAM 06/07/19 06/07/19 History Allergies Allergy/AdvReac Type Severity Reaction Status Date / Time Iodinated Contrast Media Allergy Intermediate ITCHY RASH Verified 06/07/19 10:06 Gqyltyb-Vir-Yzt Reductase Allergy Intermediate MUSCLE Verified 06/07/19 10:06 Inhibitor ACHES, PAINS clarithromycin AdvReac Intermediate NAUSEA Verified 06/07/19 10:06 Past Med/Surg History Medical History CAD (coronary artery disease) (Chronic) Stent of LAD 2015 Cataracts, bilateral Hyperlipidemia (Chronic) statin intolerant Hypertension (Chronic) Hypothyroidism (Chronic) NSTEMI (non-ST elevated myocardial infarction) (Resolved) Sep 26, 2015 > [place] > follows Dr. Fabian Osteoarthritis (Chronic) Osteopenia (Chronic) TIA (transient ischemic attack) 2007- unsure of cause- [facility]- on ASA - PCP Dr. Vega [facility] Surgical History History of cardiac cath Sep 2015 due to PA. History of colonoscopy History of endoscopic sinus surgery x2 History of heart artery stent History of hysterectomy Hx of cataract surgery Social History (Updated 05/08/19 @ 15:46 by Janneth Szymanski) Preferred Language: Greenlandic Communication Ability: Effective Hearing Ability: Hard of Hearing Bag End Sewer Required: No Beliefs That Will Affect Care: None marital status: Current Living Situation: Alone current occupational status: retired Feels Safe at Home: Yes Smoking Status: Never smoker Second Hand Exposure: No ; Hx Alcohol Use: No Hx Substance Use: No Dental Care, Regularly: No Physical Activity Frequency: Daily Seatbelt Use: always Sunscreen Use: No Review of Systems A total of 10 systems reviewed and were otherwise negative Physical Exam Vital Signs Vital Signs - 24 hr 06/07/19 09:00 06/07/19 09:19 06/07/19 09:22 Temperature 37.0 C Temperature Source Oral Pulse Rate - Lying 57 L Pulse Rate - Sitting 63 Pulse Rate - Standing 61 Pulse Rate 101 H Respiratory Rate 16 Blood Pressure - Lying 132/68 Blood Pressure - Sitting 155/77 H Blood Pressure- Standing 132/77 Blood Pressure 134/75 Blood Pressure Mean 94 Pulse Oximetry 96 96 Oxygen Delivery Method Room Air Room Air Sepsis Recent Fever Within 48 Hours No Sepsis New/Unexplained Change in Mental Status No Sepsis Action Taken by Nursing No Action Required VITALS: Vitals are noted on the nurse's note and reviewed by myself. Vital signs stable. Orthostatics normal. GENERAL: Well-developed, well-nourished, white female, who is in no acute distress and resting comfortably. Patient is cooperative with the examination. HEAD: Normocephalic atraumatic. EARS: External ear normal. External auditory canals clear, tympanic membranes pearly almonte without erythema or effusion bilaterally. EYES: Pupils equal round and reactive to light and accommodation. Conjunctivae without injection, sclerae without icterus. Extraocular movements intact. No nystagmus NOSE: Patent, turbinates without inflammation or discharge. MOUTH: Mucous membranes moist. Tonsils are not enlarged. Pharynx without erythema, blood, or exudate. Uvula midline. Airway patent. NECK: Supple without nuchal rigidity. No lymphadenopathy. No thyromegaly. Cervical spine is nontender. HEART: Regular rate and rhythm without murmurs gallops or rubs. LUNGS: Clear to auscultation bilaterally without wheezes, rales or rhonchi. No retractions or accessory muscle use. MUSCULOSKELETAL: No muscle atrophy, erythema, or edema noted. Full range of motion in all extremities. NEURO: Patient was alert and oriented to person place and time. CN II through XII grossly intact. No focal neurological deficits. Deep tendon reflexes 2+ throughout. GCS 15. SKIN: The skin was without rashes, erythema, edema, or bruising. Capillary refill less than 2 seconds. Course Administered Medications Discontinued Medications Sodium Chloride (Nss 1000ml) 1,000 mls @ 999 mls/hr IV .Q1H1M [facility] Stop: 06/07/19 10:30 Last Infusion: 06/07/19 10:42 Dose: 0 mls/hr Documented by: [id number] Admin: 06/07/19 09:41 Dose: 999 mls/hr Documented by: [id number] Medical Decision Making Differential Diagnosis Differential diagnosis: Etiologies such as benign positional vertigo, labrynthitis, dehydration, hypovolemia, anemia, tumor, infection, hypoglycemia, electrolyte abnormalities, cardiac sources, toxicological sources, central neurologic process, as well as others were entertained. Laboratory Data Result diagrams: 06/07/19 09:20 06/07/19 09:20 Lab Results 06/07/19 06/07/19 Range/Units 09:20 09:20 WBC 4.90 (4.8-10.8) K/uL RBC 4.41 (4.2-5.4) M/uL Hgb 11.9 L (12.0-16.0) g/dL Hct 37.6 (37-47) % MCV 85.3 (80-100) fL MCH 27.0 (25-34) pg MCHC 31.6 L (32-36) g/dL RDW Std Deviation 42.6 (36.4-46.3) fL RDW Coeff of Tessie 13.7 (11.5-14.5) % Plt Count 215 (130-400) K/uL MPV 9.9 (7.4-10.4) fL Immature Gran % (Auto) 0.2 % Neut % (Auto) 54.7 % Lymph % (Auto) 30.8 % [place] % (Auto) 7.6 % Eos % (Auto) 5.5 % Baso % (Auto) 1.2 % Immature Gran # (Auto) 0.01 (0.00-0.02) K/uL Neut # (Auto) 2.68 (1.4-6.5) K/uL Lymph # (Auto) 1.51 (1.2-3.4) K/uL [place] # (Auto) 0.37 (0.11-0.59) K/uL Eos # (Auto) 0.27 (0-0.5) K/uL Baso # (Auto) 0.06 (0-0.2) K/uL Sodium 140 (136-145) mmol/L Potassium 4.0 (3.5-5.1) mmol/L Chloride 108 H (98-107) mmol/L Carbon Dioxide 28 (21-32) mmol/L Anion Gap 4.0 (3-11) BUN 23 H (7-18) mg/dl Creatinine 1.02 (0.6-1.2) mg/dl Est Cr Clr Drug Dosing 42.6 ml/min Est GFR ( Amer) 59.7 Est GFR (Non-Af Amer) 51.5 BUN/Creatinine Ratio 22.8 H (10-20) Glucose 89 (70-99) mg/dl Calcium 9.2 (8.5-10.1) mg/dl Magnesium 2.2 (1.8-2.4) mg/dl Total Bilirubin 0.5 (0.2-1) mg/dl AST 19 (15-37) U/L ALT 16 (12-78) U/L Alkaline Phosphatase 72 (45-117) U/L Troponin I < 0.015 (0-0.045) ng/ml Total Protein 6.7 (6.4-8.2) gm/dl Albumin 3.3 L (3.4-5.0) gm/dl Globulin 3.4 (2.5-4.0) gm/dl Albumin/Globulin Ratio 1.0 (0.9-2) TSH 2.680 (0.300-4.500) uIu/ml Imaging Data Radiologist's Impression: CT head/brain wo con CLINICAL HISTORY: 79 years-old Female with Dizzy. Acute dizziness TECHNIQUE: Multiple axial CT images of the head were obtained without contrast. A dose lowering technique was utilized adhering to the principles of ALARA. CT DOSE: 537.48 mGy.cm COMPARISON: Head CT 01/20/2019 FINDINGS: No acute intracranial hemorrhage, midline shift, intracranial mass, hydrocephalus, territorial ischemia or abnormal extra-axial collection. Age- related involutional changes. Mild patchy white matter hypodensities suggest chronic microvascular ischemic disease. The calvarium is intact. Postoperative changes of the paranasal sinuses compatible with prior bilateral maxillary antrostomy and partial ethmoidectomy. Severe caudal thickening of the right sphenoid sinus. Mastoid air cells are clear. Soft tissues are unremarkable. Prior bilateral lens replacement. IMPRESSION: No acute intracranial abnormality. ECG Data Attestation: I personally reviewed and interpreted this ECG as follows: Indication: + other (Dizzy) Additional Comments: Sinus bradycardia @[address] elevation QT/QTc normal at 410/405 Low voltage QRS ECG When compared with ECG of 24-FEB-2018 08:43, No significant change was found MDM Narrative Physical exam and history were performed. Nursing notes, EMR, and Medication List were personally reviewed. Patient appears to have dizziness symptoms bring her to the ER this morning. On examination she does not appear toxic. EKG is sinus bradycardia at 59 bpm. IV access was established and labs were obtained. The patient was gently hydrated with normal saline. CT scan of the head was performed. The patient's blood work is as above and was reviewed. She does not have a sig nificantly elevated white blood cell count, gross anemia, bandemia, or significant electrolyte imbalance. Transaminases are not diagnostic. Troponin x1 is negative. TSH shows euthyroid state. CT scan was reviewed by myself and radiology showing no acute process. The patient was placed on the bus driver/monitor for her symptoms. satellite project site monitor was reviewed, and was quite notable as the patient was primarily with a normal sinus rate of 70, however she did have a 4 beat run of V. tach while undergoing orthostatic vital signs. The patient evidently was symptomatic during this episode, which certainly could be the cause of her dizziness. Overall the patient does not seem well for discharge home. Case was discussed with my attending physician, Dr. Barriga. The patient has a cardiac history and had an episode of nonsustained V. tach here in the ER. She is dizzy and will require further evaluation. Case was discussed with the on-call hospitalist team who agreed to evaluate the patient here in the ER. Please see their dictation for further patient course, plan, and disposition. The chart was completed utilizing [employer] Speech Voice Recognition Software. Grammatical errors, random word insertions, pronoun errors, and incomplete sentences are an occasional consequence of this system due to software limitations, ambient noise, and hardware issues. Any formal questions or co ncerns about the content, text, or information contained within the body of this dictation should be directly addressed to the provider for clarification. . Impression & Plan Non-sustained ventricular tachycardia, Dizziness Discharge Plan Visit Data Chief Complaint: Vertigo Stated Complaint: DIZZY ED Provider: Michael Barriga ED Midlevel Provider: Raghav Carmona Discharge Problem: Non-sustained ventricular tachycardia, Dizziness Forms Stand Alone Forms: My [facility] nuPSYS Prescriptions Prescriptions: No Action amoxicillin-pot clavulanate [Augmentin] 875-125 mg tablet 1 tab PO BID 10 Days Qty: 20 RF: 0 aspirin [Aspir-81] 81 mg Tablet,Delayed Release (Dr/Ec) 81 mg PO HS RF: 0 lesley (Zingiber officinalis) 250 mg Capsule 550 mg PO QAM RF: 0 losartan 25 mg Tablet 25 mg PO QDL RF: 0 metoprolol succinate 25 mg Tablet Extended Release 24 Hr 25 mg PO HS RF: 0 coenzyme Q10 [CoQ-10] 100 mg Capsule 100 mg PO HS RF: 0 Curcumin 95 % Powder 1 dose miscellaneous QAM RF: 0 omega 3-zlg-cuh-fish oil [Fish Oil] 1,000 mg (120 mg-180 mg) Capsule 1,000 mg PO QAM RF: 0 Estroven 155 mg Capsule 1 tab PO HS RF: 0 cholecalciferol (vitamin D3) [Vitamin D3] 50 mcg (2,000 unit) capsule 2,000 unit PO QAM RF: 0 Probiotic 500mg Capsules 500 mg PO DAILY@1800 RF: 0 levothyroxine 50 mcg tablet 50 mcg PO QAM RF: 0 Referrals Referrals: Karen Vega MD [Primary Care Provider] -
--- NOTE | 2019-06-07 10:57 | Emergency Department Note ---
ED Visit Note The patient was seen and examined with Raghav Carmona PA-C. I agree with the history, physical and findings. Please see the note for disposition and details. Patient had a short run of nonsustained V. tach. She has a cardiac history. Her dizziness sounds consistent with vertigo however given the findings on monitoring patient needs additional testing. Internal medicine was consulted for further management. .
--- NOTE | 2019-06-07 11:39 | History & Physical Report ---
Date of Service June 07, 2019 Assessment & Plan (1) Vertigo: No change in hearing or TM changes on exam. Absent other neurological signs. Mild nystagmus to left suggest right acute labyrinthitis. HINTS exam not performed as patient not have active vertigo. My suspicion for TIA/CVA is low given current nasal congestion symptoms, lack of focal neurology and episodic nature however she has significant risk factors for a stroke therefore recommend MRI without contrast. She reports difficulty going through an MRI previously therefore would like to discuss this with her children first before doing anything. Given her intolerance to statins and she already takes an aspirin the treatment change would likely be minimal. Only warrants full stroke workup if MRI positive given low likelihood. (2) Rhinitis, chronic: Recommend daily anti-histamine, start Shelley 60mg PO daily. No indication of bacterial sinusitis and with antibiotic associated diarrhea therefore will hold further antibiotics. Nasal saline irrigation and steroids BID PRN. She reports no current post nasal drip therefore will defer these interventions at present. (3) Non-sustained ventricular tachycardia: 4 beat run in ER, concern she was symptomatic during this time although she was also moving and suspect the movement just caused vertigo. Given Hx CAD will get up to date echo to make sure no structural abnormality that would warrant change of treatment. Mg 2.2, K 4.0. Monitor on cardiac cath lab radiology technologist overnight. (4) Hypothyroidism: Continue levothyroxine 50 mcg PO daily. (5) Hypertension: Continue metoprolol XL 25mg PO daily, losartan 25mg PO daily. (6) Hyperlipidemia: Intolerant to statin noted. Continue omega 3 oil. (7) CAD (coronary artery disease): Continue ASA, metoprolol, losartan. Not on statin due to prior intolerance. (8) Paraspinal muscle spasm: Suspect from posture during her bike riding. Stretches recommended. (9) DVT prophylaxis: SCDs. Will hold off chemical prophylaxis for now as likely short duration of stay. Admission and Anticipated Discharge Date Admission Date: 06/07/2019 Anticipated date of discharge: 06/08/19 History of Present Illness Chief Complaint: Vertigo Primary Care Provider: Karen Vega MD Yolie Schmid is an 79 year old female with known CAD and prior TIA who present to the ER with acute new onset dizziness that started at 11pm yesterday night. She describes this as movements of her furniture even though she is staying still. She is still having episodes associated with head rotation in either direction. She feels well in between these episodes. No weakness, change in sensation, speech or hearing associated with this. She notes recent diagnosis of sinusitis for which she has been taking Augmentin since May 31. She notes antibiotic associated diarrhea with this. Her symptoms described are yellow nasal congestion and post nasal drip. No fevers, sinus pain, shortness of breath or wheezing associated with this. Allergies Allergy/AdvReac Type Severity Reaction Status Date / Time Iodinated Contrast Media Allergy Intermediate ITCHY RASH Verified 06/07/19 10:06 Uyadmna-Lhc-Som Reductase Allergy Intermediate MUSCLE Verified 06/07/19 10:06 Inhibitor ACHES, PAINS clarithromycin AdvReac Intermediate NAUSEA Verified 06/07/19 10:06 Home Medications Home Medications Medication Instructions Recorded Confirmed Type Curcumin 1 dose MISCELLANEOUS QAM 12/12/17 06/07/19 History Estroven 1 tab PO HS 12/12/17 06/07/19 History aspirin [Aspir-81] 81 mg PO HS 12/12/17 06/07/19 History coenzyme Q10 [CoQ-10] 100 mg PO HS 12/12/17 06/07/19 History lesley (Zingiber officinalis) 550 mg PO QAM 12/12/17 06/07/19 History losartan 25 mg PO QDL 12/12/17 06/07/19 History metoprolol succinate 25 mg PO HS 12/12/17 06/07/19 History omega 2-qgr-seu-fish oil [Fish Oil] 1,000 mg PO QAM 12/12/17 06/07/19 History cholecalciferol (vitamin D3) 50 2,000 unit PO QAM cap 04/28/19 06/07/19 History mcg (2,000 unit) capsule amoxicillin 875 mg-potassium 1 tab PO BID 10 Days #20 tab 05/31/19 06/07/19 Rx clavulanate 125 mg tablet Probiotic 500mg Capsules 500 mg PO DAILY@1800 06/07/19 06/07/19 History levothyroxine 50 mcg PO QAM 06/07/19 06/07/19 History Past Med/Surg History Medical History CAD (coronary artery disease) (Chronic) Stent of LAD 2016 Cataracts, bilateral Hyperlipidemia (Chronic) statin intolerant Hypertension (Chronic) Hypothyroidism (Chronic) NSTEMI (non-ST elevated myocardial infarction) (Resolved) Sep 26, 2015 > [place] > follows Dr. Fabian Osteoarthritis (Chronic) Osteopenia (Chronic) TIA (transient ischemic attack) 2007- unsure of cause- [facility] History of cardiac cath Sep 2015 due to NH. History of colonoscopy History of endoscopic sinus surgery x2 History of heart artery stent History of hysterectomy Hx of cataract surgery Social History (Updated 05/08/19 @ 15:46 by Janneth Szymanski) Preferred Language: Danish Communication Ability: Effective Hearing Ability: Hard of Hearing Business Dean Required: No Beliefs That Will Affect Care: None marital status: Current Living Situation: Alone current occupational status: retired Other Information That Helps Us Care for You: No Feels Safe at Home: Yes Safety Concerns: Feels Safe At This Time Smoking Status: Never smoker Second Hand Exposure: Yes ; Hx Alcohol Use: No Hx Substance Use: No Dental Care, Regularly: No Physical Activity Frequency: Daily Seatbelt Use: always Sunscreen Use: No Review of Systems Review of Systems: All systems reviewed & are unremarkable except as noted in HPI & below Musculoskeletal: + back pain (chronic left thoracic muscle pain worse on pal pation) Physical Exam Constitutional: WD/WN, vitals as above no acute distress Eyes: PERRL, conjunctivae normal, anicteric sclerae ENMT: Ears: no hearing impairment, no external ear abnormality and no TM abnormality Neck: trachea midline Respiratory: normal respiratory effort, lungs clear to auscultation Cardiovascular: RRR, no murmur, no edema Gastrointestinal (Abdomen): Inspection/Auscultation: normal bowel sounds Percussion/Palpation: abdomen soft; abdomen nontender, no guarding and abdomen not rigid Musculoskeletal: no cyanosis or clubbing, extremities motor strength 5/5 Spine: thoracic spine normal to inspection and + paraspinal tenderness (left T5-7) Skin: no rashes, warm and dry Neurologic: PERRL, EOMI, accommodation nl, no face palsy, no dysarthria CN's II-XI intact bilaterally, moves all extremities and awake; no focal motor deficits and not confused Speech / Cognition: normal speech Motor/Sensory: no tremor, no pronator drift and no sensory deficit Psychiatric: A+Ox3, euthymic affect Results & Data Results & Data ([facility]) Vital Signs (Past 12 Hours) Vital Signs Temp Pulse Resp BP Pulse Ox 06/07/19 09:22 96 06/07/19 09:00 37.0 C 101 H 16 134/[address] head/brain wo con IMPRESSION: No acute intracranial abnormality. ECG Indication: chest pain Rate (beats per minute): 59 Rhythm: sinus bradycardia Findings: no acute ischemic change Comparison ECG Date: from (06/07/2019) Change: no significant change Code Status & VTE Plan Code Status Full VTE Prophylaxis Plan VTE Prophylaxis will be ordered: Yes Reason for no VTE drug order: Treatment not indicated PG Care Time/CCT Total # of Minutes Spent Total Time Spent with Patient: Total time spent is greater than 50% in coordination of care (as documented) at patient's floor/unit and/or counseling patient: Coding Level of Care Code 26383 Initial Inpt Care Lvl 3 Diagnoses Vertigo R42 Rhinitis, chronic J31.0 Non-sustained ventricular tachycardia I47.2 Hypothyroidism E03.9 Hypertension I10 Hyperlipidemia E78.5 CAD (coronary artery disease) I25.10 Paraspinal muscle spasm M62.830 DVT prophylaxis Z29.9
[2019-06-07] MEDS ORDERED: MECLIZINE 12.5 MG TAB PO ONE (12:00)
[2019-06-07] MEDS ORDERED: LORazepam 1 MG TAB PO PRN (12:33)
[2019-06-07] MEDS: LOSARTAN POTASSIUM 25 MG TAB PO SCH (12:52)
[2019-06-07] MEDS ORDERED: MECLIZINE 12.5 MG TAB PO PRN (13:49)
--- NOTE | 2019-06-07 14:01 | XCELERA ---
[id number] \\[email or web address]\[id number]
--- NOTE | 2019-06-07 14:48 | Magnetic Resonance Report ---
MR brain wo con HISTORY: 79 years-old Female New onset persistant vertigo, r/o CVA vertigo with acute strokelike sym ptoms COMPARISON: Head CT 06/07/2019 TECHNIQUE: Multiplanar multisequence MRI of the brain was obtained without the use of IV contrast. FINDINGS: Assembler Camper localizer images demonstrate no gross extracranial abnormality. There is no restricted diffusio n to suggest acute or subacute infarct. Motion degraded exam. The midline structures including the co rpus callosum, brainstem, optic chiasm, pituitary and pineal glands appear unremarkable sagittal T1 s eries. Low-lying cerebellar tonsils without cerebellar herniation. Degenerative changes of the imaged cervical spine. No acute intracranial hemorrhage, midline shift, abnormal extra-axial collection, hy drocephalus or intracranial mass. Age-related involutional changes. Moderate patchy T2/FLAIR hyperint ensities throughout the white matter suggest chronic microvascular ischemic disease. Major vascular f low voids appear patent. Mastoid air cells are clear. Postoperative changes of the paranasal sinuses. Moderate to severe right sphenoid with at least mild left maxillary sinus mucosal thickening. Skull and soft tissues are unremarkable. Prior bilateral cataract repair. IMPRESSION: 1. Motion degraded exam without acute intracranial abnormality identified. 2. Age-related involutional changes with moderate T2/FLAIR hyperintensities suggestive of chronic ann rovascular ischemic disease. ACT 112: Negative or not required by law. The above report was generated using voice recognition software. It may contain grammatical, syntax o r spelling errors. Electronically signed by: Ian Maravilla M.D. 06/07/2019 2:46 PM
--- NOTE | 2019-06-07 15:02 | Electrocardiogram Report ---
Test Reason : Blood Pressure : / mmHG Vent. Rate : 059 BPM Atrial Rate : 059 BPM P-R Int : 192 ms QRS Dur : 082 ms QT Int : 410 ms P-R-T Axes : 048 028 036 degrees QTc Int : 405 ms Sinus bradycardia Low voltage QRS Borderline ECG When compared with ECG of 24-FEB-2018 08:43, No significant change was found Confirmed by Gary Dubois ([id number]) on 06/07/2019 3:02:03 PM Referred By: REFERRED SELF Confirmed By:Gary Dubois
[2019-06-07] MEDS ORDERED: ASPIRIN 81 MG ECTAB PO SCH (21:00)
[2019-06-07] MEDS ORDERED: METOPROLOL SUCC 25MG EXT REL TAB PO SCH (21:00)
[2019-06-07] MEDS: FEXOFENADINE 60 MG TAB PO SCH (21:33)
[2019-06-08] MEDS ORDERED: LEVOTHYROXINE SODIUM 50 MCG TABLET PO SCH (06:30)
[2019-06-08] MEDS ORDERED: CHOLECALCIFEROL 1,000 UNITS 25 MCG TAB PO SCH (09:00)
[2019-06-08] MEDS: FEXOFENADINE 60 MG TAB PO SCH (09:21)
[2019-06-08] MEDS: LOSARTAN POTASSIUM 25 MG TAB PO SCH (11:53)
--- NOTE | 2019-06-08 17:02 | Discharge Summary ---
Date of Service June 08, 2019 Admission HPI Per Admitting Provider Yolie Schmid is an 79 year old female with known CAD and prior TIA who present to the ER with acute new onset dizziness that started at 11pm yesterday night. She describes this as movements of her furniture even though she is staying still. She is still having episodes associated with head rotation in either direction. She feels well in between these episodes. No weakness, change in sensation, speech or hearing associated with this. She notes recent diagnosis of sinusitis for which she has been taking Augmentin since May 31. She notes antibiotic associated diarrhea with this. Her symptoms described are yellow nasal congestion and post nasal drip. No fevers, sinus pain, shortness of breath or wheezing associated with this. Principal Diagnosis Labyrinthitis Discharge Exam Constitutional WD/WN, vitals as above no acute distress Eyes PERRL, conjunctivae normal, anicteric sclerae ENMT Ears: no hearing impairment, no external ear abnormality and no TM abnormality Neck trachea midline Respiratory normal respiratory effort, lungs clear to auscultation Cardiovascular RRR, no murmur, no edema Gastrointestinal (Abdomen) Inspection/Auscultation: normal bowel sounds Percussion/Palpation: abdomen soft; abdomen nontender, no guarding and abdomen n ot rigid Musculoskeletal no cyanosis or clubbing, extremities motor strength 5/5 Spine: thoracic spine normal to inspection and + paraspinal tenderness (left T5-7) Skin no rashes, warm and dry Neurologic PERRL, EOMI, accommodation nl, no face palsy, no dysarthria CN's II-XI intact bilaterally, moves all extremities and awake; no focal motor deficits and not confused Speech / Cognition: normal speech Motor/Sensory: no tremor, no pronator drift and no sensory deficit Psychiatric A+Ox3, euthymic affect Discharge Data Allergies Allergy/AdvReac Type Severity Reaction Status Date / Time Iodinated Contrast Media Allergy Intermediate ITCHY RASH Verified 06/07/19 10:06 Xtqfvxp-Elw-Thy Reductase Allergy Intermediate MUSCLE Verified 06/07/19 10:06 Inhibitor ACHES, PAINS clarithromycin AdvReac Intermediate NAUSEA Verified 06/07/19 10:06 Consultations 06/07/19 10:33 ED Decision to Admit Stat Ordered Studies 06/07/19 09:18 CT head/brain wo con Stat 06/07/19 12:33 MR brain wo con Routine Hospital Course (1) Vertigo: No change in hearing or TM changes on exam. Absent other neurological signs. Mild nystagmus to left suggest right acute labyrinthitis. By discharge, it had completely resolved. - MRI brain showed small vessel disease, but no stroke. - Discharge with low-dose meclizine in case this helps if it comes back. (2) Rhinitis, chronic: Recommend daily anti-histamine, started Shelley 60mg PO daily. - No indication of bacterial sinusitis; can continue her abx course. - Recommended Flonase on discharge. (3) Non-sustained ventricular tachycardia: 4 beat run in ER, concern she was symptomatic during this time although she was also moving and suspect the movement just caused vertigo. - Echo this admission had EF 60-65% without any regional wall motion abnormalities. No valvular issues. (4) Hypothyroidism: Continue levothyroxine 50 mcg PO daily. (5) Hypertension: Continue metoprolol XL 25mg PO daily, losartan 25mg PO daily. (6) Hyperlipidemia: Intolerant to statin noted. Continue omega 3 oil. (7) CAD (coronary artery disease): Continue ASA, metoprolol, losartan. Not on statin due to prior intolerance. (8) Paraspinal muscle spasm: Suspect from posture during her bike riding. Stretches recommended. (9) DVT prophylaxis: SCDs. Will hold off chemical prophylaxis for now as likely short duration of stay. Total Time Total Time Spent Total Time Spent (In Minutes): 35 Discharge Plan Discharge Items Patient Disposition: Home - Self-Care Reason For Visit: PERSISTENT VERTIGO Discharge Diagnosis: Vertigo Activity: Resume your previous activity Non-emergency contact: Primary Care Provider Call non-emergency contact if: your symptoms worsen Follow-up/Referrals: Karen Vega MD [Primary Care Provider] - Diet: Heart Healthy Addtl Attending Provider Instructions: You were admitted with vertigo that we were worried was from a stroke. However, we did an MRI and you did not have a stroke! This is great news! Your vertigo also went away largely on its own which is also great news! We think that you may have had an inner ear irritation from your sinus congestion. We recommend trying a steroid nasal spray (Flonase is one common example) to help clear out your sinuses and prevent some of the cough that you are having. Please note that it will take at least a few days (if not a week) for the Flonase to take effect, so stick with it even if it doesn't help right away. You can also continue the saline rinses. You can also finish off the Augmentin that Ms. Murillo prescribed last week as well. We also sent a script for a dizziness pill that could help if it comes back, though this pill (meclizine) can make you tired, so be careful the first time you take it. You only need to try to take it if the vertigo comes back. Please follow up with Dr. Vega in 1-2 weeks or sooner if the vertigo comes back. Pending Studies at Discharge: No Stand-Alone Forms: [facility] [place], Smoking Cessation Medications and DC Order Prescriptions: New meclizine 12.5 mg Tablet 12.5 mg PO Q8H PRN (Reason: dizziness) Qty: 10 RF: 0 fluticasone propionate [Flonase Allergy Relief] 50 mcg/actuation spray,suspension 1 sprays INTNAS DAILY PRN (Reason: allergy symptoms) Qty: 9.9 RF: 0 Continued amoxicillin-pot clavulanate [Augmentin] 875-125 mg tablet 1 tab PO BID 10 Days Qty: 20 RF: 0 aspirin [Aspir-81] 81 mg Tablet,Delayed Release (Dr/Ec) 81 mg PO HS RF: 0 lesley (Zingiber officinalis) 250 mg Capsule 550 mg PO QAM RF: 0 losartan 25 mg Tablet 25 mg PO QDL RF: 0 metoprolol succinate 25 mg Tablet Extended Release 24 Hr 25 mg PO HS RF: 0 coenzyme Q10 [CoQ-10] 100 mg Capsule 100 mg PO HS RF: 0 Curcumin 95 % Powder 1 dose miscellaneous QAM RF: 0 omega 4-rcb-xhs-fish oil [Fish Oil] 1,000 mg (120 mg-180 mg) Capsule 1,000 mg PO QAM RF: 0 Estroven 155 mg Capsule 1 tab PO HS RF: 0 cholecalciferol (vitamin D3) [Vitamin D3] 50 mcg (2,000 unit) capsule 2,000 unit PO QAM RF: 0 Probiotic 500mg Capsules 500 mg PO DAILY@1800 RF: 0 levothyroxine 50 mcg tablet 50 mcg PO QAM RF: 0 Discharge Orders: Discharge Order (Routine); Ordered 06/08/19 Ordered By: Home Guthrie Admission Data Admit Date/Time: 06/07/19 11:16 Attending Provider: Home Guthrie Admit Provider: Boris Whyte Primary Care Provider: Karen Vega Other Providers: Home Guthrie Other Interventions: Discharge Summary Assessment (RN) Last Done: 06/08/19 11:39 DC Date/Time DO NOT enter until pt leaves facility: 06/08/19 14:26 Coding Level of Care Code D/C Day Management >30 mins Diagnoses Vertigo R42 Rhinitis, chronic J31.0 Non-sustained ventricular tachycardia I47.2 Hypothyroidism E03.9 Hypertension I10 Hyperlipidemia E78.5 CAD (coronary artery disease) I25.10 Paraspinal muscle spasm M62.830 DVT prophylaxis Z29.9
== END 2019-06-08 14:26 | disposition home or self-care (01) | DRG 149 ==
LOC: ED 08:55 → SUATTDRO 11:16 → 2S 11:16

== ENCOUNTER 2019-08-30 22:04 | Observation (INO) ==
[2019-08-30 23:09] LABS: Basophils # (auto) 0.05 K/uL (0-0.2); Basophils % (auto) 0.6 %; Eosinophils # (auto) 0.35 K/uL (0-0.5); Eosinophils % (auto) 4.3 %; Hematocrit (blood only) 36.2 % (37-47); Hemoglobin 11.7 g/dL (12.0-16.0); Immature Granulocytes # (auto) 0.01 K/uL (0.00-0.02); Immature Granulocytes % (auto) 0.1 %; Lymphocytes # (auto) 1.96 K/uL (1.2-3.4); Lymphocytes % (auto) 24.3 %; Mean Corpuscular Hgb Conc 32.3 g/dL (32-36); Mean Corpuscular Volume 83.6 fL (80-100); Mean Platelet Volume 9.8 fL (7.4-10.4); Monocytes # (auto) 0.59 K/uL (0.11-0.59); Monocytes % (auto) 7.3 %; Neutrophils # (auto) 5.09 K/uL (1.4-6.5); Neutrophils % (auto) 63.4 %; Platelet Count 233 K/uL (130-400); RDW Coefficient of Variation 13.7 % (11.5-14.5); RDW Standard Deviation 41.7 fL (36.4-46.3); Red Blood Count 4.33 M/uL (4.2-5.4); White Blood Count 8.05 K/uL (4.8-10.8)
[2019-08-30 23:20] LABS: Partial Thromboplastin Ratio 0.9; Partial Thromboplastin Time 24.7 Seconds (21.0-31.0); Prothrombin Time 10.3 Seconds (9.0-12.0)
[2019-08-30 23:28] LABS: Alanine Aminotransferase 16 U/L (12-78); Albumin Level 3.3 gm/dl (3.4-5.0); Aspartate Aminotransferase 16 U/L (15-37); BUN Creatinine Ratio 17.5 (10-20); Blood Urea Nitrogen 20 mg/dl (7-18); Calcium 9.8 mg/dl (8.5-10.1); Carbon Dioxide 29 mmol/L (21-32); Chloride 106 mmol/L (98-107); Creatinine Clr Calc Pharmacy 38.7 ml/min; Est GFR (African American) 51.1; Est GFR (Non-African American) 44.1; Glucose 88 mg/dl (70-99); Lipase 244 U/L (73-393); Potassium 3.9 mmol/L (3.5-5.1); Sodium 140 mmol/L (136-145)
[2019-08-30 23:33] LABS: Albumin Globulin Ratio 0.9 (0.9-2); Alkaline Phosphatase 67 U/L (45-117); Bilirubin,Total 0.3 mg/dl (0.2-1); Globulin 3.7 gm/dl (2.5-4.0); Troponin I < 0.015 ng/ml (0-0.045)
--- NOTE | 2019-08-31 01:16 | History & Physical Report ---
Date of Service August 31, 2019 Assessment & Plan (1) Chest pain: 79yo C female with HTN, HLP, known CAD s/p stent to LAD in 2016. Patient with episodic chest and back discomfort over the last 36 hours. Troponin x 1 negative, EKG unremarkable. Suspect GI vs musculoskeletal etiology -Observation with telemetry monitoring -Trend troponin q 8 hours x 3 sets -If troponin remains negative x 3 would consider exercise stress testing. Will keep patient NPO after midnight. Her BB is given at night -Continue ASA, CoQ10, Losartan and Metoprolol -Patient is intolerant to statins (2) CAD (coronary artery disease): As above. Patient with known CAD. She is active at home and denies any exertional symptoms -Management as above -Continue ASA, Losartan, Metoprolol, Fish Oil and CoQ10 Present on Admission?: Yes (3) Hyperlipidemia: Patient intolerant to statins -Continue Fish Oil -Encourage healthy diet and frequent exercise Present on Admission?: Yes (4) Hypertension: Blood pressure acceptable at present -Continue Metoprolol, Losartan -Continue to monitor (5) Hypothyroidism: Chronic -Continue Levothyroxine Present on Admission?: Yes (6) TIA (transient ischemic attack): Noted -Continue ASA and Fish oil F/E/N- [place], electrolytes WNL, NPO after midnight for stress testing Ppx - Low risk for DVT Code - Full Dispo - Observation to PCU Present on Admission?: Yes Admission and Anticipated Discharge Date Admission Date: 08/31/19 Anticipated date of discharge: 09/01/19 History of Present Illness Chief Complaint: chest pain Primary Care Provider: Karen Vega MD Yolie Schmid is an 79yo C female with history of CAD with stent placement in 2016. Patient presents with episodic chest discomfort. The pain began yesterday afternoon around 13:00. Discomfort occurs in upper chest, substernal area as well as in her back between her shoulder blades and around her ribs. Pain is episodic, lasts minutes then goes away and is sharp and stabbing in nature. She has been having multiple episodes per day. Pain is non-pleuritic and does not seem to get worse with exertion. It is worsened by movement at times. She denies palpitations/dizziness/diaphoresis/nausea/vomiting or SOB with the pain. She has been taking TUMS with no relief. Patient is fairly active at home. She recently moved from a home into a trailer, states she has been much less active after moving. She frequently rides a stationary bike. Approximately 2 months ago she was riding the bike 5 miles per day almost every day of the week. Recently, however, she has been riding it 2-3 miles/day 3 days per week. She denies exertional chest pain or SOB limiting activity. Last echocardiogram performed on 06/07/19 which revealed normal LV size and function with an EF of 60-65%, no valvular abnormalities. She does not recall having a recent stress test. Allergies Allergy/AdvReac Type Severity Reaction Status Date / Time Iodinated Contrast Media Allergy Intermediate ITCHY RASH Verified 08/30/19 23:59 Revffkb-Aec-Boo Reductase Allergy Intermediate MUSCLE Verified 08/30/19 23:59 Inhibitor ACHES, PAINS ezetimibe [From Zetia] Allergy Unknown Unknown Verified 08/30/19 23:59 clarithromycin AdvReac Intermediate NAUSEA Verified 08/30/19 23:59 Home Medications Home Medications Medication Instructions Recorded Confirmed Type Estroven 1 tab PO HS 12/12/17 08/31/19 History aspirin [Aspir-81] 81 mg PO HS 12/12/17 08/31/19 History coenzyme Q10 [CoQ-10] 100 mg PO HS 12/12/17 08/31/19 History lesley (Zingiber officinalis) 550 mg PO QAM 12/12/17 08/31/19 History losartan 25 mg PO QDL 12/12/17 08/31/19 History metoprolol succinate 25 mg PO HS 12/12/17 08/31/19 History omega 3-wat-ofk-fish oil [Fish Oil] 1,000 mg PO QAM 12/12/17 08/31/19 History cholecalciferol (vitamin D3) 50 2,000 unit PO QAM cap 04/28/19 08/31/19 History mcg (2,000 unit) capsule levothyroxine 50 mcg PO QAM 06/07/19 08/31/19 History fluticasone propionate [Flonase 1 sprays INTNAS DAILY PRN #9.9 ml 06/08/19 08/31/19 Rx Allergy Relief] meclizine 12.5 mg PO Q8H PRN #10 tab 06/08/19 08/31/19 Rx Past Med/Surg History Social History Preferred Language: Polish Communication Ability: Effective Hearing Ability: Hard of Hearing Charge Gang Weigher Required: No Beliefs That Will Affect Care: None marital status: Current Living Situation: Alone current occupational status: retired Other Information That Helps Us Care for You: No Feels Safe at Home: Yes Safety Concerns: Feels Safe At This Time Smoking Status: Never smoker Second Hand Exposure: Yes ; Hx Alcohol Use: No Hx Substance Use: No Dental Care, Regularly: No Physical Activity Frequency: Daily Seatbelt Use: always Sunscreen Use: No Review of Systems Review of Systems: All systems reviewed & are unremarkable except as noted in HPI & below Physical Exam Physical Exam: General: patient resting comfortably, NAD, non-toxic in appearance, AA&O x 4 Skin: warm, dry, intact, no rashes or lesions HEENT: NC/AT, PERRL, EOMI, anicteric sclera, conjunctiva without injection, external ear normal to inspection and nontender, nares patent, moist mucus membranes, dentition intact, no oropharyngeal lesions, neck supple, trachea midline, no LAD, no thyromegaly, no JVD Heart: +S1/S2, regular, no m/r/g, no reproducible chest wall pain Lungs: equal air entry bilaterally, no rales/rhonchi/wheezes Abd: +BS, soft, NT/ND, no masses/organomegaly/ascites Ext: warm, 2+ pulses in UE/LE bilaterally, no clubbing/cyanosis or edema Neuro: nonfocal, patient AA&O x 4, speech intact, no facial droop, moving all extremities on command with equal strength 5/5 Results & Data Results & Data ([facility]) Vital Signs (Past 12 Hours) Vital Signs Temp Pulse Pulse Resp BP BP Pulse Ox 08/30/19 23:44 64 98 08/30/19 23:42 63 18 140/78 98 08/30/19 22:06 36.9 C 76 16 149/77 H 94 Laboratory Results Lab Results 08/30/19 08/30/19 08/30/19 Range/Units 22:51 22:51 22:55 WBC 8.05 (4.8-10.8) K/uL RBC 4.33 (4.2-5.4) M/uL Hgb 11.7 L (12.0-16.0) g/dL Hct 36.2 L (37-47) % MCV 83.6 (80-100) fL MCH 27.0 (25-34) pg MCHC 32.3 (32-36) g/dL RDW Std Deviation 41.7 (36.4-46.3) fL RDW Coeff of Tessie 13.7 (11.5-14.5) % Plt Count 233 (130-400) K/uL MPV 9.8 (7.4-10.4) fL Immature Gran % (Auto) 0.1 % Neut % (Auto) 63.4 % Lymph % (Auto) 24.3 % [place] % (Auto) 7.3 % Eos % (Auto) 4.3 % Baso % (Auto) 0.6 % Neut # (Auto) 5.09 (1.4-6.5) K/uL Lymph # (Auto) 1.96 (1.2-3.4) K/uL [place] # (Auto) 0.59 (0.11-0.59) K/uL Eos # (Auto) 0.35 (0-0.5) K/uL Baso # (Auto) 0.05 (0-0.2) K/uL Immature Gran # (Auto) 0.01 (0.00-0.02) K/uL PT 10.3 (9.0-12.0) Seconds INR 1.0 (0.9-1.1) APTT 24.7 (21.0-31.0) Seconds PTT Ratio 0.9 Sodium 140 (136-145) mmol/L Potassium 3.9 (3.5-5.1) mmol/L Chloride 106 (98-107) mmol/L Carbon Dioxide 29 (21-32) mmol/L Anion Gap 5.0 (3-11) BUN 20 H (7-18) mg/dl Creatinine 1.16 (0.6-1.2) mg/dl Est Cr Clr Drug Dosing 38.7 ml/min Est GFR ( Amer) 51.1 Est GFR (Non-Af Amer) 44.1 BUN/Creatinine Ratio 17.5 (10-20) Glucose 88 (70-99) mg/dl Calcium 9.8 (8.5-10.1) mg/dl Total Bilirubin 0.3 (0.2-1) mg/dl AST 16 (15-37) U/L ALT 16 (12-78) U/L Alkaline Phosphatase 67 (45-117) U/L Troponin I < 0.015 (0-0.045) ng/ml Total Protein 7.0 (6.4-8.2) gm/dl Albumin 3.3 L (3.4-5.0) gm/dl Globulin 3.7 (2.5-4.0) gm/dl Albumin/Globulin Ratio 0.9 (0.9-2) Lipase 244 (73-393) U/L Diagnostic Findings CXR - by my interpretation - trachea midline, cardiac shadow within normal size, +hiatal hernia, no evidence of CHF, PNA or PTX. Awaiting formal read in AM ECG Additional Comments: EKG with NSR at 68bpm, normal axis, XI=408, QRS=78, VZi=606, no acute ischemic changes Code Status & VTE Plan Code Status FULL CODE VTE Prophylaxis Plan VTE Prophylaxis will be ordered: Yes PG Care Time/CCT Total # of Minutes Spent Total Time Spent with Patient: Total time spent is greater than 50% in coordinat ion of care (as documented) at patient's floor/unit and/or counseling patient: Coding Level of Care Code 44754 OBS Care - Level 3 Diagnoses Chest pain R07.89 Chest pain type: other chest pain CAD (coronary artery disease) I25.10 Coronary Disease-Associated Artery/Lesion type: council artery [place] vs. transplanted heart: council heart Associated angina: angina presence unspecified Hyperlipidemia E78.5 Hyperlipidemia type: unspecified Hypertension I10 Hypertension type: essential hypertension Hypothyroidism E03.9 Hypothyroidism type: unspecified TIA (transient ischemic attack) G45.9 (1) CAD (coronary artery disease) Coronary Disease-Associated Artery/Lesion type: council artery [place] vs. transplanted heart: council heart Associated angina: angina presence unspecified Qualified Code(s): I25.10 - Atherosclerotic heart disease of council coronary artery without angina pectoris (2) Hyperlipidemia Hyperlipidemia type: unspecified Qualified Code(s): E78.5 - Hyperlipidemia, unspecified (3) Hypothyroidism Hypothyroidism type: unspecified Qualified Code(s): E03.9 - Hypothyroidism, unspecified (4) Chest pain Chest pain type: other chest pain Qualified Code(s): R07.89 - Other chest pain (5) Hypertension Hypertension type: essential hypertension Qualified Code(s): I10 - Essential (primary) hypertension
[2019-08-31] MEDS ORDERED: NITROGLYCERIN SL 0.4 MG/TAB TAB SL PRN (01:49)
[2019-08-31] MEDS ORDERED: ONDANSETRON INJ 2 MG/ML 2 ML VIAL IV PRN (01:49)
[2019-08-31] MEDS ORDERED: ALUMINUM/MAGNESIUM SUSP 30 ML UDC PO PRN (01:49)
--- NOTE | 2019-08-31 03:30 | Emergency Department Note ---
Impression & Plan Substernal chest pain ED Provider Note NAME: DAVI MONTELONGO AGE: 79 SEX: F ARRIVES VIA: Walk-In INFORMANT: Patient ED PROVIDER(S): Evi Medeiros DO CHIEF COMPLAINT: Chest pain PLAN: Disposition: Admitted to the [facility] service MEDICAL DECISION MAKING: This is an 79-year-old female patient with a history of coronary artery disease who presents to the emergency department with complaints of indigestion that seems to radiate to her left shoulder and under her ribs. Twelve-lead EKG is unremarkable. Troponin is negative. Chest x-ray was normal. The patient remained symptom-free while here in the emergency department. I discussed the case with the [facility]ist and they will evaluate for further management. Triage Nursing notes reviewed and agree them. Prior medical records reviewed Vital Signs: reviewed and unremarkable Differential diagnosis: GERD, esophagitis, cholecystitis, cardiac ischemia, angina Diagnostics interpreted by me: ECG: Normal sinus rhythm at 68. No ST segment elevation or signs of ischemia. There is no ectopy. Cardiac Monitoring: Normal sinus rhythm at a rate of [address] segment elevation or signs of ischemia Laboratory studies: See below Imaging studies: Chest x-ray-no acute pulmonary infiltrates or signs of cardiomegaly as per my interpretation HPI: 79/F arrives for evaluation of chest pain. This is an 79-year-old female patient with history of heart disease and a patient of Dr. Amaro who presents to the emergency department with intermittent episodes of chest discomfort starting at 1:00 this afternoon. She describes them as indigestion. They last for varying amounts of time. They seem to radiate to her left shoulder and under her ribs. She denies any other associated symptoms such as nausea, shortness of breath or diaphoresis. She does have a mild headache. ROS: See above HPI for pertinent positives & negatives. A total of 10 systems reviewed and were otherwise negative. PAST MEDICAL HISTORY:See Below PAST SURGICAL HISTORY:See Below FAMILY HISTORY:See Below SOCIAL HISTORY:See Below HOME MEDICATIONS:See list ALLERGIES:See list VITALS:See Below PHYSICAL EXAMINATION: HEENT: Head - normocephalic and atraumatic Pupils are equal, round, and reactive to light. Extraocular eye muscles are intact, and sclera are anicteric. Nose - moist nasal mucosa without discharge. Mouth - moist buccal mucosa. Oropharynx is nonerythematous and there is no tonsillar exudate or edema noted. Neck: Supple; no JVD, nuchal rigidity, cervical lymphadenopathy, or auscultated bruits. Heart: Regular rate and rhythm. There is a normal S1 and S2 with no murmurs, clicks, or gallops appreciated. Lungs: Clear to auscultation bilaterally with no wheezes, rales, or rhonchi. Abdomen: Soft, completely nontender, nondistended, with good bowel sounds. There are no palpable pulsatile masses or hepatosplenomegaly. There is no guarding, rigidity, or rebound noted. Extremities: No evidence of cyanosis, clubbing, or edema. There are easily palpable peripheral pulses. Skin: warm and dry with good turgor and no rashes. ED COURSE: Times/Reassessments: 2320: The patient was evaluated in room a 12. A complete history and physical was performed. An IV lock was initiated and labs were drawn as above. A twelve-lead EKG was obtained as described above. Previous electronic medical records were reviewed. An order was placed for continuous cardiac monitoring. The patient remained in a normal sinus rhythm at a rate of 64. A chest x-ray was obtained. 0010: The patient was reevaluated at this time and was comfortable. I reviewed the results of the laboratory studies and x-rays with the patient and her . I encouraged her to stay here in the hospital for additional cardiology evaluation. I discussed the case with the [facility] Hospitalist and they will evaluate for further management Evi Medeiros, Past Med/Surg History Social History Preferred Language: Albanian Communication Ability: Effective Hearing Ability: Hard of Hearing Legal Specialist Required: No Beliefs That Will Affect Care: None marital status: Current Living Situation: Alone current occupational status: retired Other Information That Helps Us Care for You: No Feels Safe at Home: Yes Safety Concerns: Feels Safe At This Time Smoking Status: Never smoker Second Hand Exposure: Yes ; Hx Alcohol Use: No Hx Substance Use: No Dental Care, Regularly: No Physical Activity Frequency: Daily Seatbelt Use: always Sunscreen Use: No Allergies Allergies Allergy/AdvReac Type Severity Reaction Status Date / Time Iodinated Contrast Media Allergy Intermediate ITCHY RASH Verified 08/30/19 23:59 Lzqcqum-Geo-Zeo Reductase Allergy Intermediate MUSCLE Verified 08/30/19 23:59 Inhibitor ACHES, PAINS ezetimibe [From Zetia] Allergy Unknown Unknown Verified 08/30/19 23:59 clarithromycin AdvReac Intermediate NAUSEA Verified 08/30/19 23:59 Home Meds Home Medications Medication Instructions Recorded Confirmed Estroven 1 tab PO HS 12/12/17 08/31/19 aspirin [Aspir-81] 81 mg PO HS 12/12/17 08/31/19 coenzyme Q10 [CoQ-10] 100 mg PO HS 12/12/17 08/31/19 lesley (Zingiber officinalis) 550 mg PO QAM 12/12/17 08/31/19 losartan 25 mg PO QDL 12/12/17 08/31/19 metoprolol succinate 25 mg PO HS 12/12/17 08/31/19 omega 4-vzj-jgd-fish oil [Fish Oil] 1,000 mg PO QAM 12/12/17 08/31/19 cholecalciferol (vitamin D3) 50 2,000 unit PO QAM cap 04/28/19 08/31/19 mcg (2,000 unit) capsule levothyroxine 50 mcg PO QAM 06/07/19 08/31/19 Previous Rx's Medication Instructions Recorded fluticasone propionate [Flonase 1 sprays INTNAS DAILY PRN #9.9 ml 06/08/19 Allergy Relief] meclizine 12.5 mg PO Q8H PRN #10 tab 06/08/19 Results & Data (ED) Vital Signs Vital Signs - 24 hr 08/30/19 22:06 08/30/19 23:42 08/30/19 23:44 Temperature 36.9 C Temperature Source Oral Pulse Rate 76 64 Pulse Rate [Right Finger] 63 Respiratory Rate 16 18 Respiratory Effort / Characteristics Spontaneous Respiratory Depth Normal Blood Pressure 149/77 H Blood Pressure [Right Arm] 140/78 Blood Pressure Mean 101 Blood Pressure Mean [Right Arm] 98 Blood Pressure Position Sitting Blood Pressure Position [Right Arm] Lying Pulse Oximetry 94 98 98 Oxygen Delivery Method Room Air Room Air Room Air Sepsis Recent Fever Within 48 Hours No Sepsis Action Taken by Nursing No Action Required Laboratory Data Result diagrams: 08/30/19 22:51 07/08/20 22:55 Lab Results 08/30/19 08/30/19 08/30/19 Range/Units 22:51 22:51 22:55 WBC 8.05 (4.8-10.8) K/uL RBC 4.33 (4.2-5.4) M/uL Hgb 11.7 L (12.0-16.0) g/dL Hct 36.2 L (37-47) % MCV 83.6 (80-100) fL MCH 27.0 (25-34) pg MCHC 32.3 (32-36) g/dL RDW Std Deviation 41.7 (36.4-46.3) fL RDW Coeff of Tessie 13.7 (11.5-14.5) % Plt Count 233 (130-400) K/uL MPV 9.8 (7.4-10.4) fL Immature Gran % (Auto) 0.1 % Neut % (Auto) 63.4 % Lymph % (Auto) 24.3 % [place] % (Auto) 7.3 % Eos % (Auto) 4.3 % Baso % (Auto) 0.6 % Neut # (Auto) 5.09 (1.4-6.5) K/uL Lymph # (Auto) 1.96 (1.2-3.4) K/uL [place] # (Auto) 0.59 (0.11-0.59) K/uL Eos # (Auto) 0.35 (0-0.5) K/uL Baso # (Auto) 0.05 (0-0.2) K/uL Immature Gran # (Auto) 0.01 (0.00-0.02) K/uL PT 10.3 (9.0-12.0) Seconds INR 1.0 (0.9-1.1) APTT 24.7 (21.0-31.0) Seconds PTT Ratio 0.9 Sodium 140 (136-145) mmol/L Potassium 3.9 (3.5-5.1) mmol/L Chloride 106 (98-107) mmol/L Carbon Dioxide 29 (21-32) mmol/L Anion Gap 5.0 (3-11) BUN 20 H (7-18) mg/dl Creatinine 1.16 (0.6-1.2) mg/dl Est Cr Clr Drug Dosing 38.7 ml/min Est GFR ( Amer) 51.1 Est GFR (Non-Af Amer) 44.1 BUN/Creatinine Ratio 17.5 (10-20) Glucose 88 (70-99) mg/dl Calcium 9.8 (8.5-10.1) mg/dl Total Bilirubin 0.3 (0.2-1) mg/dl AST 16 (15-37) U/L ALT 16 (12-78) U/L Alkaline Phosphatase 67 (45-117) U/L Troponin I < 0.015 (0-0.045) ng/ml Total Protein 7.0 (6.4-8.2) gm/dl Albumin 3.3 L (3.4-5.0) gm/dl Globulin 3.7 (2.5-4.0) gm/dl Albumin/Globulin Ratio 0.9 (0.9-2) Lipase 244 (73-393) U/L Administered Medications Aspirin (Ecotrin Ectab) 81 mg PO HS JOANN Stop: 09/30/19 20:59 Last Admin: 08/31/19 02:46 Dose: 81 mg Documented by: [id number] Discharge Plan Visit Data *Final* Discharge Date/Time: 08/31/19 01:26 Chief Complaint: Cardiac Assessment Stated Complaint: INDIGESTION ED Provider: Evi Medeiros Discharge Problem: Substernal chest pain Patient Disposition: Admitted As Inpatient Discharge Instructions Interventions: ED Discharge Assessment Last Done: 08/31/19 01:26
[2019-08-31] MEDS ORDERED: LEVOTHYROXINE SODIUM 50 MCG TABLET PO SCH (06:30)
--- NOTE | 2019-08-31 07:44 | XRay Report ---
XR chest 1V portable CLINICAL HISTORY: Atypical chest pain COMPARISON STUDY: 01/17/2019 FINDINGS: There is a moderate to large hiatal hernia. The heart is at the upper limits of normal in s ize. There is no failure. There is no lobar consolidation. There are basilar atelectatic changes.[ IMPRESSION: 1. Moderate to large hiatal hernia 2. Basilar atelectasis ACT 112: Negative or not required by law. Electronically signed by: Junior Austin M.D. 08/31/2019 7:42 AM
[2019-08-31] MEDS ORDERED: CHOLECALCIFEROL 1,000 UNITS 25 MCG TAB PO SCH (09:00)
[2019-08-31] MEDS ORDERED: LOSARTAN POTASSIUM 25 MG TAB PO SCH (11:30)
--- NOTE | 2019-08-31 13:56 | XCELERA ---
[id number]
[2019-08-31] MEDS ORDERED: METOPROLOL SUCC 25MG EXT REL TAB PO SCH (21:00)
[2019-08-31] MEDS ORDERED: ASPIRIN 81 MG ECTAB PO SCH (21:00)
[2019-08-31] MEDS ORDERED: NON-FORMULARY MEDICATION (Coenzyme Q10 [Coq-10] 100 MG) PO SCH (21:00)
--- NOTE | 2019-09-01 04:35 | Electrocardiogram Report ---
Test Reason : Blood Pressure : / mmHG Vent. Rate : 068 BPM Atrial Rate : 068 BPM P-R Int : 182 ms QRS Dur : 078 ms QT Int : 372 ms P-R-T Axes : 066 047 046 degrees QTc Int : 395 ms Normal sinus rhythm Normal ECG When compared with ECG of 07-JUN-2019 09:30, No significant change was found Confirmed by Gary Dubois ([id number]) on 09/01/2019 4:34:47 AM Referred By: REFERRED SELF Confirmed By:Gary Dubois
--- NOTE | 2019-09-01 11:00 | Discharge Summary ---
Date of Service August 31, 2019 Admission HPI Per Admitting Provider Yolie Schmid is an 79yo C female with history of CAD with stent placement in 2016. Patient presents with episodic chest discomfort. The pain began yesterday afternoon around 13:00. Discomfort occurs in upper chest, substernal area as well as in her back between her shoulder blades and around her ribs. Pain is episodic, lasts minutes then goes away and is sharp and stabbing in nature. She has been having multiple episodes per day. Pain is non-pleuritic and does not seem to get worse with exertion. It is worsened by movement at times. She denies palpitations/dizziness/diaphoresis/nausea/vomiting or SOB wit h the pain. She has been taking TUMS with no relief. Patient is fairly active at home. She recently moved from a home into a trailer, states she has been much less active after moving. She frequently rides a stationary bike. Approximately 2 months ago she was riding the bike 5 miles per day almost every day of the week. Recently, however, she has been riding it 2-3 miles/day 3 days per week. She denies exertional chest pain or SOB limiting activity. Last echocardiogram performed on 06/07/19 which revealed normal LV size and function with an EF of 60-65%, no valvular abnormalities. She does not recall having a recent stress test. Principal Diagnosis chest pain Discharge Exam Constitutional WD/WN, vitals as above Eyes PERRL, conjunctivae normal, anicteric sclerae ENMT external ear and nose normal, oropharynx normal Neck trachea midline, no thyromegaly Respiratory normal respiratory effort, lungs clear to auscultation Cardiovascular RRR, no murmur, no edema Gastrointestinal (Abdomen) normal bowel sounds, soft, nontender, no hepatosplenomegaly Musculoskeletal no cyanosis or clubbing, extremities motor strength 5/5 Skin no rashes, warm and dry Neurologic patellar DTR's 2+ bilat, sensation intact and PERRL, EOMI, accommodation nl, no face palsy, no dysarthria Psychiatric A+Ox3, euthymic affect Lymphatic no cervical or axillary lymphadenopathy Discharge Data Allergies Allergy/AdvReac Type Severity Reaction Status Date / Time Iodinated Contrast Media Allergy Intermediate ITCHY RASH Verified 08/30/19 23:59 Fdaweaa-Usc-Vrj Reductase Allergy Intermediate MUSCLE Verified 08/30/19 23:59 Inhibitor ACHES, PAINS ezetimibe [From Zetia] Allergy Unknown Unknown Verified 08/30/19 23:59 clarithromycin AdvReac Intermediate NAUSEA Verified 08/30/19 23:59 Consultations 08/31/19 00:17 ED Decision to Admit Stat Hospital Course (1) Chest pain: 79yo C female with HTN, HLP, known CAD s/p stent to LAD in 2016. Patient with episodic chest and back discomfort over the last 36 hours. Troponin x 1 negative, EKG unremarkable. Suspect GI vs musculoskeletal etiology -Observation with telemetry monitoring -troponin negative x 3 sets -exercise stress echo on day of discharge, no signs of ischemia on EKG tracing or echocardiogram -Continue ASA, CoQ10, Losartan and Metoprolol no further chest pain, could be muscular d/c to home and follow up with PCP as needed (2) CAD (coronary artery disease): As above. Patient with known CAD. She is active at home and denies any exertional symptoms -Management as above -Continue ASA, Losartan, Metoprolol, Fish Oil and CoQ10 (3) Hyperlipidemia: Patient intolerant to statins -Continue Fish Oil -Encourage healthy diet and frequent exercise (4) Hypertension: Blood pressure acceptable at present -Continue Metoprolol, Losartan -Continue to monitor (5) Hypothyroidism: Chronic -Continue Levothyroxine (6) TIA (transient ischemic attack): Noted -Continue ASA and Fish oil F/E/N- [place], electrolytes WNL, NPO after midnight for stress testing Ppx - Low risk for DVT Code - Full Dispo - Observation to PCU Total Time Total Time Spent Total Time Spent (In Minutes): 20 Total Time Includes: Examination of the Patient, Discharge Planning, Medication Reconciliation and Communication With Other Providers (talked with cardiology about stress test) Discharge Plan Discharge Items Patient Disposition: Home - Self-Care Reason For Visit: CHEST PAIN Discharge Diagnosis: Chest pain, non-cardiac Condition on Discharge: Good Goals: stay well rested, well nourished, well hydrated Activity: Resume your previous activity Driving/Machine Use: No limitations Weightbearing: Full weightbearing Non-emergency contact: Primary Care Provider Call non-emergency contact if: you have any medication questions and your symptoms worsen Follow-up/Referrals: Karen Vega MD [Primary Care Provider] - Diet: Heart Healthy Addtl Attending Provider Instructions: Medications: no changes Chest pain normal EKG, no ischemic changes normal resting echocardiogram, no significant valve disease normal stress EKG and stress echo imaging troponin (heart enzyme) negative, ruling out heart attack clear to return to home Pending Studies at Discharge: No Stand-Alone Forms: My [facility] [employer], Smoking Cessation Medications and DC Order Prescriptions: Continued aspirin [Aspir-81] 81 mg Tablet,Delayed Release (Dr/Ec) 81 mg PO HS RF: 0 lesley (Zingiber officinalis) 250 mg Capsule 550 mg PO QAM RF: 0 losartan 25 mg Tablet 25 mg PO QDL RF: 0 metoprolol succinate 25 mg Tablet Extended Release 24 Hr 25 mg PO HS RF: 0 coenzyme Q10 [CoQ-10] 100 mg Capsule 100 mg PO HS RF: 0 omega 3-vjd-nbx-fish oil [Fish Oil] 1,000 mg (120 mg-180 mg) Capsule 1,000 mg PO QAM RF: 0 Estroven 155 mg Capsule 1 tab PO HS RF: 0 cholecalciferol (vitamin D3) [Vitamin D3] 50 mcg (2,000 unit) capsule 2,000 unit PO QAM RF: 0 levothyroxine 50 mcg tablet 50 mcg PO QAM RF: 0 meclizine 12.5 mg Tablet 12.5 mg PO Q8H PRN (Reason: dizziness) Qty: 10 RF: 0 fluticasone propionate [Flonase Allergy Relief] 50 mcg/actuation spray,suspension 1 sprays INTNAS DAILY PRN (Reason: allergy symptoms) Qty: 9.9 RF: 0 Discharge Orders: Discharge Order (Routine); Ordered 08/31/19 Ordered By: George Li Admission Data Admit Date/Time: 08/31/19 00:57 Attending Provider: George Li Admit Provider: Veda Goodman Primary Care Provider: Karen Vega Other Providers: Veda Goodman Other Interventions: Discharge Summary Assessment (RN) Last Done: 08/31/19 14:11 DC Date/Time DO NOT enter until pt leaves facility: 08/31/19 15:00 Coding Level of Care Code 95860 OBS Care - Discharge Diagnoses Chest pain R07.89 Chest pain type: other chest pain CAD (coronary artery disease) I25.10 Associated angina: angina presence unspecified Coronary Disease-Associated Artery/Lesion type: [place] artery [place] vs. transplanted heart: [place] heart Hyperlipidemia E78.5 Hyperlipidemia type: unspecified Hypertension I10 Hypertension type: essential hypertension Hypothyroidism E03.9 Hypothyroidism type: unspecified TIA (transient ischemic attack) G45.9
== END 2019-08-31 15:00 | disposition home or self-care (01) ==
LOC: ED 22:04 → 2E 22:04 → SUATTDRO 08-31 00:57 → 2E 08-31 01:26

== ENCOUNTER 2021-10-24 16:17 | Observation (INO) ==
--- NOTE | 2021-10-24 17:04 | CT Scan Report ---
CT head/brain wo con CLINICAL HISTORY: Stroke Alert Technique: Contiguous axial CT images of the head were acquired from the base of the skull to the sara leonel without intravenous contrast administration. Images were viewed in brain, subdural and [facility]. Automated dose lowering techniques and/or adjustment according to patient size were utilized for this exam. Comparison: Comparison is made to CT head 06/07/2019 Findings: Areas of decreased attenuation are present in the periventricular and subcortical white matter bilate rally consistent with small vessel ischemic disease. Generalized cerebral atrophy with commensurate e nlargement of the ventricles, sulci, and cisterns is also present. There is no acute intracranial hem orrhage or evidence of acute territorial infarction. No shift of the midline structures, mass effect, or extra-axial abnormalities are shown. Atherosclerotic calcifications are present in the intracran ial segments of the internal carotid arteries. The right sphenoid sinus is opacified. Postsurgical changes compatible with bilateral maxillary antro stomy and partial ethmoidectomy. The orbits appear normal. There are no acute fractures of the juanito cheri or scalp swelling. Impression: 1. No acute intracranial hemorrhage, no evidence of acute territorial infarction or other acute intr acranial disease process. 2. Sinus disease. ACT 112: Negative or not required by law. Electronically signed by: George Wiley M.D. 10/24/2021 5:02 PM
[2021-10-24 17:11] LABS: Hematocrit (blood only) 40.2 % (34.1-44.9); Hemoglobin 12.5 g/dl (12.0-16.0); Mean Corpuscular Hemoglobin 26.4 pg (25.0-34.0); Mean Corpuscular Hgb Conc 31.1 g/dL (32.0-36.0); Mean Platelet Volume 9.8 fL (9.4-12.3); Platelet Count 270 K/uL (130-400); RDW Coefficient of Variation 13.5 % (11.5-14.5); RDW Standard Deviation 42.5 fL (36.4-46.3); Red Blood Count 4.73 M/uL (3.93-5.22); White Blood Count 5.78 K/ul (4.8-10.8)
[2021-10-24 17:26] LABS: Partial Thromboplastin Ratio 0.9; Partial Thromboplastin Time 25.8 Seconds (21.0-31.0); Prothrombin Time 10.4 Seconds (9.0-12.0)
[2021-10-24 17:44] LABS: Alanine Aminotransferase 10 U/L (7-52); Albumin Globulin Ratio 1.5 (0.9-2); Albumin Level 4.3 gm/dl (3.4-5.0); Alkaline Phosphatase 68 U/L (34-104); Anion Gap 6 (3-11); Aspartate Aminotransferase 17 U/L (13-39); BUN Creatinine Ratio 14.4 (10-20); Bilirubin,Total 0.5 mg/dl (0.2-1.0); Blood Urea Nitrogen 16 mg/dl (6-23); Calcium 10.2 mg/dl (8.5-10.1); Carbon Dioxide 29 mmol/L (21-32); Chloride 103 mmol/L (98-107); Est GFR (African American) 53.2 ml/min; Est GFR (Non-African American) 45.9 ml/min; Globulin 2.9 gm/dl (2.5-4.0); Glucose 81 mg/dl (70-99(Fasting)); Magnesium 1.9 mg/dl (1.7-2.4); Potassium 3.9 mmol/L (3.5-5.1); Sodium 138 mmol/L (136-145); Total Protein 7.2 gm/dl (6.0-8.3)
--- NOTE | 2021-10-24 18:45 | Emergency Department Note ---
Impression & Plan TIA (transient ischemic attack), AF (amaurosis fugax) ED Provider Note NAME: DAVI MONTELONGO AGE: 81 SEX: F : 1940 ARRIVES VIA: Walk-In INFORMANT: Patient, ED PROVIDER(S): Eddy Davis DO CHIEF COMPLAINT: TIA HPI: The patient is an 81-year-old female who presented to the emergency department for an evaluation of TIA and strokelike symptoms. The patient awoke at 530 this morning and could not see out of her right eye. She states that this lasted for approximately 1 hour. She describes the vision as looking thro ugh glass. She states that the symptoms resolved spontaneously but she was taking to see her eye doctor. She went to see the eye doctor and had a dilation and evaluation of the posterior elements. Everything appeared normal to the director information security so she was sent to the emergency department for the possibility of a TIA. The patient denies having any fever. She denies having any headache at this time. She denies having any weakness in the arms or legs. She does have a history of a TIA but states that they never determine the source of the TIA. The patient states that she has been in the waiting room for many hours and states that she already had a work-up. The patient states that she feels much better. ROS: See above HPI for pertinent positives & negatives. A total of 10 systems reviewed and were otherwise negative. PAST MEDICAL HISTORY: See Below PAST SURGICAL HISTORY: See Below FAMILY HISTORY: See Below SOCIAL HISTORY: See Below HOME MEDICATIONS: See Below ALLERGIES: See Below VITALS: See Below PHYSICAL EXAMINATION: GENERAL: Patient is awake alert in no acute distress patient is resting comfortably and showing no signs of anxiety EYES: The conjunctivae are clear. The pupils are round and minimally reactive to light bilaterally. EARS, NOSE, MOUTH AND THROAT: The nose is without any evidence of any deformity. Mucous membranes are moist. Tongue is midline. NECK: The neck is nontender and supple. RESPIRATORY: Normal respiratory effort is noted there is no evidence of wheezing rhonchi or rales CARDIOVASCULAR: Regular rate and rhythm noted there no murmurs rubs or gallops normal S1 normal S2. GASTROINTESTINAL: The abdomen is soft. Abdomen is nontender. MUSCULOSKELETAL/EXTREMITIES: There is no evidence of gross deformity full range of motion is noted in the hips and shoulders. SKIN: There is no obvious evidence of any rash. There are no petechiae, pallor or cyanosis noted. NEUROLOGIC: Patient is awake alert and oriented x3 strength is symmetric patellar reflexes are 2+ bilaterally. Gait was steady. MEDICAL DECISION MAKING: The patient is an 81-year-old female who presented to the emergency department at the request of her director information security for an evaluation of difficulty with visi on. The patient appears to have had a TIA which was ocular in nature. I discussed the patient's laboratory and radiographic studies with her. I also discussed further follow-up and work-up for a TIA. The patient lives alone and her family members were very concerned about her. They were not comfortable with the patient being discharged to home. They felt that she would benefit from an inpatient work-up rather than an outpatient work-up. For this reason I discussed her case with the on-call [facility] hospitalist. They have agreed to evaluate the patient in the emergency department for further management and disposition. Triage Nursing notes reviewed. Prior medical records reviewed Vital Signs: reviewed and remarkable for elevated blood pressure. Differential diagnosis: Infection, dehydration, metabolic abnormality, hypo/hyperglycemia, electrolyte disturbance, anemia, hypoxia, cardiac sources, intracerebral event, toxicologic, neurologic, as well as other pathologies. ER treatment provided: See below Diagnostics interpreted by me: ECG: EKG was obtained in the emergency department. My interpretation is normal sinus rhythm at 67 bpm. There is no ectopy. There is no acute ST segment abnormalities noted. This was compared to a tracing from October 13, 2021. No changes were noted. Cardiac Monitoring: An order was placed for continuous cardiac monitoring. The monitor shows a rate of 76 bpm with sinus rhythm. Laboratory studies: As stated above and show below. Imaging studies: See below Consultation(s): Case was discussed with Dr. Alejandre is on-call for the [facility] hosp italist group. Past Med/Surg History Medical History Anemia CAD (coronary artery disease) Stent of LAD 2015 Chronic sinusitis Dupuytren's contracture of left hand GERD (gastroesophageal reflux disease) Hiatal hernia History of esophageal dilatation Hyperlipidemia statin intolerant Hypertension Hypothyroidism Left rotator cuff tear NSTEMI (non-ST elevated myocardial infarction) Sep 26, 2015 > [place] > follows Dr. Fabian Osteoarthritis Osteopenia TIA (transient ischemic attack) (2007) Surgical History History of cardiac cath 2016 @ [facility] [place] with stent placement History of colonoscopy History of endoscopic sinus surgery x2 History of esophagogastroduodenoscopy (EGD) History of heart artery stent (~2015) @ [facility] [place], 1 stent placed History of hemorrhoidectomy History of hysterectomy Hx of cataract surgery bilt Family History Father Myocardial infarction Brother Myocardial infarction Stroke Mother Stroke Sister Pancreatic cancer Leukemia Brother Lung cancer Other No family history of adverse response to anesthesia Denies family history of Ovarian cancer Prostate cancer Breast cancer Colorectal cancer Social History Smoking Status: Never smoker Second Hand Exposure: No; Hx Alcohol Use: No Hx Substance Use: No Preferred Language: Maltese Communication Ability: Effective Visual Impairment: No Limitations Hearing Ability: Hard of Hearing [employer] Supervisor Required: No Beliefs That Will Affect Care: None marital status: Current Living Situation: Alone current occupational status: retired current occupation: retired from working [employer] Feels Safe at Home: Yes Childhood Exposure to Second-Hand Smoke: No Dental Care, Regularly: No Physical Activity Frequency: 3-4 Times per Week Seatbelt Use: always Sunscreen Use: No Assistive Devices: Denture - Upper, Denture - Lower and Glasses Allergies Allergies Allergy/AdvReac Type Severity Reaction Status Date / Time Iodinated Contrast Media Allergy Intermediate ITCHY RASH Verified 09/03/21 10:41 on arms [place]-RDR-KyL Reductase Allergy Intermediate MUSCLE Verified 09/03/21 10:41 Inhibitor ACHES, [Xiccltg-Zse-Tgu Reductase PAINS Inhibitor] ezetimibe [From Zetia] Allergy Mild joints Verified 09/03/21 10:41 aches clarithromycin AdvReac Intermediate NAUSEA Verified 09/03/21 10:41 Home Meds Home Medications Medication Instructions Recorded Confirmed coenzyme Q10 100 mg capsule 100 mg PO HS 12/12/17 09/03/21 (CoQ-10) losartan 25 mg tablet 25 mg PO QDL 12/12/17 09/03/21 metoprolol succinate 25 mg 25 mg PO HS 12/12/17 09/03/21 tablet,extended release 24 hr cholecalciferol (vitamin D3) 50 2,000 unit PO QAM 04/28/19 09/03/21 mcg (2,000 unit) capsule (Vitamin D3) aspirin 81 mg tablet,delayed 81 mg PO QAM 03/02/20 09/03/21 release (Ravindra Low Dose Aspirin) Ebblicep8l 1,000 mg PO DAILY 01/28/21 09/03/21 krill 500 mg-omega 3 115 mg-dha 30 1 cap PO DAILY 01/28/21 09/03/21 mg-epa 64 [id number]-[id number] capsule (MegaRed [place]-3 Krill Oil) Previous Rx's Medication Instructions Recorded levothyroxine 50 mcg tablet 50 mcg PO DAILY #90 tabs 01/14/21 prednisone 10 mg tablet 10 mg PO DAILY PRN chronic 04/07/21 bronchitis #30 tabs venlafaxine 37.5 mg 37.5 mg PO DAILY #90 caps 09/26/21 capsule,extended release 24 hr (Effexor XR) ibuprofen 400 mg tablet 400 mg PO Q6H PRN pain #16 tabs 10/13/21 Results & Data (ED) Vital Signs Vital Signs - 24 hr 10/24/21 16:22 10/24/21 20:11 10/24/21 20:31 Temperature 36.7 C Temperature Source Temporal Artery Scan Pulse Rate 70 Pulse Rate [Apical] 76 Respiratory Rate 18 16 20 Respiratory Effort / Characteristics Non-Labored Spontaneous Non-Labored Spontaneous Respiratory Depth Normal Normal Respiratory Pattern Regular Blood Pressure 171/78 H Blood Pressure [Right Arm] 144/77 H Blood Pressure Mean 109 Blood Pressure Mean [Right Arm] 99 Blood Pressure Position Sitting Pulse Oximetry 98 97 95 Oxygen Delivery Method Room Air Room Air Sepsis Recent Fever Within 48 Hours No Sepsis New/Unexplained Change in Mental Status No Sepsis Action Taken by Nursing No Action Required 10/24/21 20:34 Temperature Temperature Source Pulse Rate Pulse Rate [Apical] Respiratory Rate Respiratory Effort / Characteristics Respiratory Depth Respiratory Pattern Blood Pressure Blood Pressure [Right Arm] Blood Pressure Mean Blood Pressure Mean [Right Arm] Blood Pressure Position Pulse Oximetry 96 Oxygen Delivery Method Room Air Sepsis Recent Fever Within 48 Hours Sepsis New/Unexplained Change in Mental Status Sepsis Action Taken by Group Home Medications Current Medication List: was personally reviewed by me Laboratory Data Attestation: I reviewed the patient's lab results. Result diagrams: 10/24/21 16:48 10/24/21 16:48 Lab Results 10/24/21 10/24/21 10/24/21 Range/Units 16:48 16:48 16:48 WBC 5.78 (4.8-10.8) K/ul RBC 4.73 (3.93-5.22) M/uL Hgb 12.5 (12.0-16.0) g/dl Hct 40.2 (34.1-44.9) % MCV 85.0 (80.0-100.0) fL MCH 26.4 (25.0-34.0) pg MCHC 31.1 L (32.0-36.0) g/dL RDW Std Deviation 42.5 (36.4-46.3) fL RDW Coeff of Tessie 13.5 (11.5-14.5) % Plt Count 270 (130-400) K/uL MPV 9.8 (9.4-12.3) fL PT 10.4 (9.0-12.0) Seconds INR 1.0 (0.9-1.1) APTT 25.8 (21.0-31.0) Seconds PTT Ratio 0.9 Sodium 138 (136-145) mmol/L Potassium 3.9 (3.5-5.1) mmol/L Chloride 103 (98-107) mmol/L Carbon Dioxide 29 (21-32) mmol/L Anion Gap 6 (3-11) BUN 16 (6-23) mg/dl Creatinine 1.11 (0.6-1.2) mg/dl Est Cr Clr Drug Dosing Not Reportable Est GFR ( Amer) 53.2 ml/min Est GFR (Non-Af Amer) 45.9 ml/min BUN/Creatinine Ratio 14.4 (10-20) Glucose 81 (70-99(Fasting)) mg/dl Calcium 10.2 H (8.5-10.1) mg/dl Magnesium 1.9 (1.7-2.4) mg/dl Total Bilirubin 0.5 (0.2-1.0) mg/dl AST 17 (13-39) U/L ALT 10 (7-52) U/L Alkaline Phosphatase 68 (34-104) U/L Total Protein 7.2 (6.0-8.3) gm/dl Albumin 4.3 (3.4-5.0) gm/dl Globulin 2.9 (2.5-4.0) gm/dl Albumin/Globulin Ratio 1.5 (0.9-2) SARS-CoV-2, RNA, NAAT (NEGATIVE) 10/24/21 Range/Units 21:12 WBC (4.8-10.8) K/ul RBC (3.93-5.22) M/uL Hgb (12.0-16.0) g/dl Hct (34.1-44.9) % MCV (80.0-100.0) fL MCH (25.0-34.0) pg MCHC (32.0-36.0) g/dL RDW Std Deviation (36.4-46.3) fL RDW Coeff of Tessie (11.5-14.5) % Plt Count (130-400) K/uL MPV (9.4-12.3) fL PT (9.0-12.0) Seconds INR (0.9-1.1) APTT (21.0-31.0) Seconds PTT Ratio Sodium (136-145) mmol/L Potassium (3.5-5.1) mmol/L Chloride (98-107) mmol/L Carbon Dioxide (21-32) mmol/L Anion Gap (3-11) BUN (6-23) mg/dl Creatinine (0.6-1.2) mg/dl Est Cr Clr Drug Dosing Est GFR ( Amer) ml/min Est GFR (Non-Af Amer) ml/min BUN/Creatinine Ratio (10-20) Glucose (70-99(Fasting)) mg/dl Calcium (8.5-10.1) mg/dl Magnesium (1.7-2.4) mg/dl Total Bilirubin (0.2-1.0) mg/dl AST (13-39) U/L ALT (7-52) U/L Alkaline Phosphatase (34-104) U/L Total Protein (6.0-8.3) gm/dl Albumin (3.4-5.0) gm/dl Globulin (2.5-4.0) gm/dl Albumin/Globulin Ratio (0.9-2) SARS-CoV-2, RNA, NAAT NEGATIVE (NEGATIVE) Administered Medications Discontinued Medications Diphenhydramine HCl (Diphenhydramine 50 Mg/Ml Vial) 50 mg IV ONE ONE Stop: 10/24/21 22:39 Last Admin: 10/24/21 18:53 Dose: Not Given Documented By: TIANA Diphenhydramine HCl (Diphenhydramine 50 Mg/Ml Vial) Confirm Administered Dose 50 mg .ROUTE .STK-MED ONE Stop: 10/24/21 18:53 Last Admin: 10/24/21 18:56 Dose: 50 mg Documented By: TIANA Ioversol (Optiray 300 500ml) 92 ml IV ONCE ONE Stop: 10/24/21 19:28 Last Admin: 10/24/21 19:29 Dose: 92 ml Documented By: STEPHANIE Methylprednisolone (Methylprednisolone 40 Mg/Ml Vial) 40 mg IV NOW STA Stop: 10/24/21 18:39 Last Admin: 10/24/21 18:48 Dose: 40 mg Documented By: TIANA Imaging Data Radiologist's Impression: Head CT 10/24/21 16:26 CT head/brain wo con CLINICAL HISTORY: Stroke Alert Technique: Contiguous axial CT images of the head were acquired from the base of the skull to the vertex without intravenous contrast administration. Images were viewed in brain, subdural and bone windows. Automated dose lowering techniques and/or adjustment according to patient size were utilized for this exam. Comparison: Comparison is made to CT head 06/07/2019 Findings: Areas of decreased attenuation are present in the periventricular and subcortical white matter bilaterally consistent with small vessel ischemic disease. Generalized cerebral atrophy with commensurate enlargement of the ventricles, sulci, and cisterns is also present. There is no acute intracranial hemorrhage or evidence of acute territorial infarction. No shift of the midline structures, mass effect, or extra-axial abnormalities are shown. Atherosclerotic calcifications are present in the intracranial segments of the internal carotid arteries. The right sphenoid sinus is opacified. Postsurgical changes compatible with bilateral maxillary antrostomy and partial ethmoidectomy. The orbits appear normal. There are no acute fractures of the calvaria or scalp swelling. Impression: 1. No acute intracranial hemorrhage, no evidence of acute territorial infarction or other acute intracranial disease process. 2. Sinus disease. ACT 112: Negative or not required by law. Electronically signed by: George Wiley M.D. 10/24/2021 5:02 PM Head CTA 10/24/21 18:38 CT angio neck with con, CT angio head w con CLINICAL HISTORY: tia TECHNIQUE: CT angiography of the head and neck was performed following intravenous administration of iodinated contrast. Coronal and sagittal MIPS were obtained from the axial data set and were submitted for review. Automated dose lowering techniques and/or adjustment according to patient size were utilized for this examination. All measurements were calculated based on NASCET criteria. CT DOSE: 425.90 mGy.cm Comparison: Comparison is made to CT head 10/24/2021 and CTA head and neck 05/30/2007 FINDINGS: Lungs and soft tissues are unremarkable. There is a small amount of fluid in left maxillary sinus and opacification of the right sphenoid sinus as well as thickening in some ethmoid air cells. CTA Neck: A 3 vessel aortic arch is shown. There is no significant atherosclerotic plaque in the aortic arch or the origins of the innominate, left common carotid, and left subclavian arteries. There is mild calcified atherosclerotic plaque at the bifurcation of the bilateral common carotid arteries without hemodynamically significant flow stenosis. There is no dissection present. The left vertebral artery is dominant. CTA Head: The anterior and posterior cerebral circulations are patent. No hemodynamically significant stenosis, aneurysm, dissection, or arteriovenous malformation is shown. Atherosclerotic disease is noted. IMPRESSION: 1. No occlusion, hemodynamically significant stenosis, or dissection in the major cervical arteries. 2. No occlusion, hemodynamically significant stenosis, aneurysm, dissection, or arteriovenous malformation in the major intracranial arteries. 3. Incidentally noted sinus disease. Assessment of stenosis of the internal carotid arteries is based on NASCET criteria. ACT 112: Negative or not required by law. Electronically signed by: George Wiley M.D. 10/24/2021 8:09 PM Neck CTA 10/24/21 18:38 CT angio neck with con, CT angio head w con CLINICAL HISTORY: tia TECHNIQUE: CT angiography of the head and neck was performed following intravenous administration of iodinated contrast. Coronal and sagittal MIPS were obtained from the axial data set and were submitted for review. Automated dose lowering techniques and/or adjustment according to patient size were utilized for this examination. All measurements were calculated based on NASCET criteria. CT DOSE: 425.90 mGy.cm Comparison: Comparison is made to CT head 10/24/2021 and CTA head and neck 05/30/2007 FINDINGS: Lungs and soft tissues are unremarkable. There is a small amount of fluid in left maxillary sinus and opacification of the right sphenoid sinus as well as thickening in some ethmoid air cells. CTA Neck: A 3 vessel aortic arch is shown. There is no significant atherosclerotic plaque in the aortic arch or the origins of the innominate, left common carotid, and left subclavian arteries. There is mild calcified atherosclerotic plaque at the bifurcation of the bilateral common carotid arteries without hemodynamically significant flow stenosis. There is no dissection present. The left vertebral artery is dominant. CTA Head: The anterior and posterior cerebral circulations are patent. No hemodynamically significant stenosis, aneurysm, dissection, or arteriovenous malformation is shown. Atherosclerotic disease is noted. IMPRESSION: 1. No occlusion, hemodynamically significant stenosis, or dissection in the major cervical arteries. 2. No occlusion, hemodynamically significant stenosis, aneurysm, dissection, or arteriovenous malformation in the major intracranial arteries. 3. Incidentally noted sinus disease. Assessment of stenosis of the internal carotid arteries is based on NASCET criteria. ACT 112: Negative or not required by law. Electronically signed by: George Wiley M.D. 10/24/2021 8:09 PM Discharge Plan Visit Data Chief Complaint: Stroke/CVA Symptoms Stated Complaint: POSSIBLE MINI STROKE ED Provider: Eddy Davis Discharge Problem: TIA (transient ischemic attack), AF (amaurosis fugax) Patient Disposition: Being Evaluated by Hospitalist Forms Stand Alone Forms: [facility] Prescriptions Prescriptions: No Action levothyroxine 50 mcg tablet 50 mcg PO DAILY Qty: 90 3RF prednisone 10 mg tablet 10 mg PO DAILY PRN (Reason: chronic bronchitis ) Qty: 30 0RF venlafaxine [Effexor XR] 37.5 mg capsule,extended release 24hr 37.5 mg PO DAILY Qty: 90 3RF losartan 25 mg Tablet 25 mg PO QDL metoprolol succinate 25 mg Tablet Extended Release 24 Hr 25 mg PO HS coenzyme Q10 [CoQ-10] 100 mg Capsule 100 mg PO HS cholecalciferol (vitamin D3) [Vitamin D3] 50 mcg (2,000 unit) capsule 2,000 unit PO QAM aspirin [Ravindra Low Dose Aspirin] 81 mg Tablet,Delayed Release (Dr/Ec) 81 mg PO QAM [id number] [MegaRed [place]-3 Krill Oil] 267-749-11-64 mg Capsule 1 cap PO DAILY [id number] 1,000 mg PO DAILY ibuprofen 400 mg tablet 400 mg PO Q6H PRN (Reason: pain) Qty: 16 0RF Referrals Referrals: Karen Vega MD [Primary Care Provider] -
[2021-10-24] MEDS ORDERED: diphenhydrAMINE 50 MG/ML VIAL ONE (18:52)
[2021-10-24] MEDS ORDERED: OPTIRAY 300 500mL IV ONE (19:27)
--- NOTE | 2021-10-24 20:12 | CT Scan Report ---
CT angio neck with con, CT angio head w con CLINICAL HISTORY: tia TECHNIQUE: CT angiography of the head and neck was performed following intravenous administration of iodinated contrast. Coronal and sagittal MIPS were obtained from the axial data set and were submitte d for review. Automated dose lowering techniques and/or adjustment according to patient size were ut ilized for this examination. All measurements were calculated based on NASCET criteria. CT DOSE: 425.90 mGy.cm Comparison: Comparison is made to CT head 10/24/2021 and CTA head and neck 05/30/2007 FINDINGS: Lungs and soft tissues are unremarkable. There is a small amount of fluid in left maxillary sinus and opacification of the right sphenoid sinus as well as thickening in some ethmoid air cells. CTA Neck: A 3 vessel aortic arch is shown. There is no significant atherosclerotic plaque in the aor tic arch or the origins of the innominate, left common carotid, and left subclavian arteries. There is mild calcified atherosclerotic plaque at the bifurcation of the bilateral common carotid arteries without hemodynamically significant flow stenosis. There is no dissection present. The left vertebra l artery is dominant. CTA Head: The anterior and posterior cerebral circulations are patent. No hemodynamically significan t stenosis, aneurysm, dissection, or arteriovenous malformation is shown. Atherosclerotic disease is noted. IMPRESSION: 1. No occlusion, hemodynamically significant stenosis, or dissection in the major cervical arteries. 2. No occlusion, hemodynamically significant stenosis, aneurysm, dissection, or arteriovenous malfor mation in the major intracranial arteries. 3. Incidentally noted sinus disease. Assessment of stenosis of the internal carotid arteries is based on NASCET criteria. ACT 112: Negative or not required by law. Electronically signed by: George Wiley M.D. 10/24/2021 8:09 PM
--- NOTE | 2021-10-24 21:55 | History & Physical Report ---
Date of Service October 24, 2021 Assessment & Plan (1) TIA (transient ischemic attack): Plan: 81-year-old woman with history of CAD (status post LAD stent in 2016), GERD, hyperlipidemia, hypothyroidism, osteoarthritis who presented with temporary monocular blindness and admitted overnight for MRI head TIA/stroke rule out per stroke protocol. Stroke work-up thus far has been negative. TIA -Patient had 1.5-hour episode of monocular blindness on the right side upon waking this morning. Saw director of materials prior to presenting to the ED (no abnormal findings). Head CT, CTA head, CTA neck negative. Now awaiting MRI head. -ASA 324 mg x 1 -Plavix 75 mg x 1 -Admit to [facility] with telemetry -MRI in the morning. -Ativan 0.5 mg as needed prior to MRI. -A.m. BMP, CBC Chronic conditions: GERD, hypothyroidism, osteoarthritis -Continue home regimen. Code: Full code Dispo: Med-Surg with telemetry FEN/GI: heart healthy DVT Prophylaxis: Per stroke protocol PT/OT: Ordered per stroke protocol Consults: Neurology Case management: History of Present Illness Primary Care Provider: Karen Vega MD Yolie is an 81-year-old woman with past medical history that includes coronary artery disease status post LAD stent in 2016, GERD, hyperlipidemia, hypothyroidism, osteoarthritis, who presented to the hospital from her director of materials office with a chief complaint of temporary monocular blindness. Specifically, she awoke this morning at 4 AM with blindness of the right eye that lasted until 530 before spontaneously resolving. She denies headache, focal extremity weakness, chest pain, shortness of breath, loss of consciousness, nausea/vomiting, or dysarthria. She presented to her director of materials office, where her pupils were dilated and posterior eye was examined. According to the director of materials, everything appeared normal so she was sent to the emergency room to rule out TIA. She has no symptoms at present. She had a prior episode of a suspected TIA (expressive aphasia) in 2005, for which TIA work-up including MRI was negative. In the ED, she was evaluated with CT head, CTA head, CTA neck, all of which were negative for acute or subacute ischemic findings. She was then admitted to the hospital overnight for observation and stroke rule out, with a pending morning MRI head. Allergies Allergy/AdvReac Type Severity Reaction Status Date / Time Iodinated Contrast Media Allergy Intermediate ITCHY RASH Verified 09/03/21 10:41 on arms Eobruix-ZGD-QaG Reductase Allergy Intermediate MUSCLE Verified 09/03/21 10:41 Inhibitor ACHES, [Xxzbevd-Srm-Msm Reductase PAINS Inhibitor] ezetimibe [From Zetia] Allergy Mild joints Verified 09/03/21 10:41 aches clarithromycin AdvReac Intermediate NAUSEA Verified 09/03/21 10:41 Home Medications Medication Instructions Recorded Confirmed Type coenzyme Q10 100 mg capsule 100 mg PO HS 12/12/17 09/03/21 History (CoQ-10) losartan 25 mg tablet 25 mg PO QDL 12/12/17 09/03/21 History metoprolol succinate 25 mg 25 mg PO HS 12/12/17 09/03/21 History tablet,extended release 24 hr cholecalciferol (vitamin D3) 50 2,000 unit PO QAM 04/28/19 09/03/21 History mcg (2,000 unit) capsule (Vitamin D3) aspirin 81 mg tablet,delayed 81 mg PO QAM 03/02/20 09/03/21 History release (Ravindra Low Dose Aspirin) levothyroxine 50 mcg tablet 50 mcg PO DAILY #90 tabs 01/14/21 09/03/21 Rx Nlhqkppr7t 1,000 mg PO DAILY 01/28/21 09/03/21 History krill 500 mg-omega 3 115 mg-dha 30 1 cap PO DAILY 01/28/21 09/03/21 History mg-epa 64 cg-ydhwjwy-glfzr capsule (MegaRed [place]-3 Krill Oil) prednisone 10 mg tablet 10 mg PO DAILY PRN chronic 04/07/21 09/03/21 Rx bronchitis #30 tabs venlafaxine 37.5 mg 37.5 mg PO DAILY #90 caps 09/26/21 Rx capsule,extended release 24 hr (Effexor XR) ibuprofen 400 mg tablet 400 mg PO Q6H PRN pain #16 tabs 10/13/21 Rx clopidogrel 75 mg tablet (Plavix) 75 mg PO DAILY #30 tabs 10/25/21 Rx Past Med/Surg History Medical History Anemia CAD (coronary artery disease) Stent of LAD 2015 Chronic sinusitis Dupuytren's contracture of left hand GERD (gastroesophageal reflux disease) Hiatal hernia History of esophageal dilatation Hyperlipidemia statin intolerant Hypertension Hypothyroidism Left rotator cuff tear NSTEMI (non-ST elevated myocardial infarction) Sep 26, 2015 > [facility] > follows Dr. Fabian Osteoarthritis Osteopenia TIA (transient ischemic attack) (2007) Surgical History History of cardiac cath 2016 @ [facility] [place] with stent placement History of colonoscopy History of endoscopic sinus surgery x2 History of esophagogastroduodenoscopy (EGD) History of heart artery stent (~2015) @ [facility], 1 stent placed History of hemorrhoidectomy History of hysterectomy Hx of cataract surgery bilt Family History Father , age 58 of an [place] Myocardial infarction Brother Myocardial infarction Stroke Mother , age 84 of a stroke Stroke Sister Pancreatic cancer Leukemia Brother Lung cancer Other No family history of adverse response to anesthesia Denies family history of Ovarian cancer Prostate cancer Breast cancer Colorectal cancer Social History Smoking Status: Never smoker Second Hand Exposure: No; Hx Alcohol Use: No Hx Substance Use: No Preferred Language: Lebanese Communication Ability: Effective Visual Impairment: No Limitations Hearing Ability: Hard of Hearing Molder Apprentice Required: No Beliefs That Will Affect Care: None marital status: Current Living Situation: Alone current occupational status: retired current occupation: retired from working [employer] Feels Safe at Home: Yes Childhood Exposure to Second-Hand Smoke: No Dental Care, Regularly: No Physical Activity Frequency: 3-4 Times per Week Seatbelt Use: always Sunscreen Use: No Assistive Devices: None Review of Systems Review of Systems: All systems reviewed & are unremarkable except as noted in HPI & below Physical Exam Physical Exam: General: Well-appearing, alert, interactive, and in no acute distress. HEENT: Normocephalic, atraumatic. EOM intact. Good conjugate gaze. Nares patent. Moist mucosal membranes. Neck: Supple. No lymphadenopathy. Normal ROM. CV: Regular rate and rhythm. Normal S1 and S2. 2/6 systolic ejection murmur heard loudest at right sternal border. No gallops or rubs. Respiratory: Normal respiratory effort. Lungs clear to auscultation bilaterally. No crackles, rhonchi, or wheezes. Abdomen: Soft, nondistended abdomen. No bruits heard on auscultation. No tenderness to deep palpation. No guarding or rebound. Extremities: Capillary refill <2 sec. 2+ dp equal bilaterally. No pedal edema. Neuro: Alert and oriented x3. Cranial nerves II through XII intact. No focal motor or sensory weakness. Normal finger-nose test. Skin: Clean, dry, and intact. No rashes, bruises, or erythema. Results & Data Results & Data ([facility]) Vital Signs (Past 12 Hours) Vital Signs Temp Pulse Pulse Resp BP BP Pulse Ox 10/24/21 20:34 96 10/24/21 20:31 76 20 144/77 H 95 10/24/21 20:11 16 97 10/24/21 16:22 36.7 C 70 18 171/78 H 98 O2 Del Method 10/24/21 20:34 Room Air 10/24/21 20:31 10/24/21 20:11 Room Air 10/24/21 16:22 Room Air Supervising Physician Co-Signing Physician Notes Attending addendum: I have physically seen this patient, have supervised the medical residents activities, and agree with the H&P unless as otherwise noted. Assessment and Plan: TIA- Amaurosis fugax type symptoms Seen by ophthalmology in the outpatient setting with negative thumb scopic examination CT head negative CTA head and neck negative Ischemic stroke without tPA order set MRI of brain without contrast Hypercoagulable work-up Consult neurology Remaining orders and notations as noted Resident Activity Tracking Resident Involvement: Resident Care Provided Care Provided: Adult [facility] Medicine
[2021-10-24] MEDS ORDERED: diphenhydrAMINE 50 MG/ML VIAL IV ONE (22:38)
[2021-10-24] MEDS ORDERED: CLOPIDOGREL BISULFATE 75 MG TAB PO ONE (23:30)
[2021-10-24] MEDS ORDERED: ASPIRIN 81 MG CHEW PO STA (23:30)
[2021-10-25] MEDS ORDERED: PHARMACIST DISCHARGE MED REC CONSULT PRN (00:40)
[2021-10-25] MEDS ORDERED: IBUPROFEN 200 MG TAB PO PRN (00:40)
[2021-10-25] MEDS ORDERED: ASPIRIN 81 MG CHEW PO ONE (00:40)
[2021-10-25] MEDS ORDERED: NITROGLYCERIN SL 0.4 MG/TAB TAB SL PRN (00:40)
[2021-10-25] MEDS ORDERED: POLYETHYLENE (MIRALAX) 17 GM PACK PO PRN (00:40)
[2021-10-25] MEDS ORDERED: ACETAMINOPHEN 325 MG TAB PO PRN (00:40)
[2021-10-25] MEDS ORDERED: LORazepam 0.5 mg IV INJ IV PRN (00:54)
[2021-10-25] MEDS ORDERED: LORazepam 2 MG/1 ML VIAL IV ONE (04:00)
[2021-10-25] MEDS ORDERED: LEVOTHYROXINE SODIUM 50 MCG TABLET PO SCH (06:30)
[2021-10-25 07:23] LABS: Basophils # (auto) 0.02 K/uL (0-0.2); Basophils % (auto) 0.4 %; Eosinophils # (auto) 0.01 K/uL (0-0.50); Eosinophils % (auto) 0.2 %; Hematocrit (blood only) 36.8 % (34.1-44.9); Hemoglobin 11.7 g/dl (12.0-16.0); Immature Granulocytes # (auto) 0.02 K/uL (0.00-0.02); Immature Granulocytes % (auto) 0.4 %; Lymphocytes # (auto) 0.74 K/uL (1.2-3.4); Lymphocytes % (auto) 15.8 %; Mean Corpuscular Hemoglobin 26.7 pg (25.0-34.0); Mean Corpuscular Hgb Conc 31.8 g/dL (32.0-36.0); Mean Corpuscular Volume 83.8 fL (80.0-100.0); Mean Platelet Volume 9.8 fL (9.4-12.3); Monocytes # (auto) 0.15 K/uL (0.24-0.82); Monocytes % (auto) 3.2 %; Neutrophils # (auto) 3.73 K/uL (1.4-6.5); Platelet Count 257 K/uL (130-400); RDW Coefficient of Variation 13.5 % (11.5-14.5); RDW Standard Deviation 41.7 fL (36.4-46.3); Red Blood Count 4.39 M/uL (3.93-5.22); White Blood Count 4.67 K/ul (4.8-10.8)
--- NOTE | 2021-10-25 07:24 | Electrocardiogram Report ---
Test Reason : Blood Pressure : / mmHG Vent. Rate : 067 BPM Atrial Rate : 067 BPM P-R Int : 194 ms QRS Dur : 064 ms QT Int : 368 ms P-R-T Axes : 047 022 038 degrees QTc Int : 388 ms Normal sinus rhythm Low voltage QRS Abnormal ECG When compared with ECG of 13-OCT-2021 12:26, No significant change was found Confirmed by Lee Ramon ([id number]) on 10/25/2021 7:24:26 AM Referred By: REFERRED SELF Confirmed By:Kedar Ramon
[2021-10-25 07:46] LABS: BUN Creatinine Ratio 15.7 (10-20); Calcium 9.6 mg/dl (8.5-10.1); Chol HDL Ratio 4.9 (0-5); Creatinine Clr Calc Pharmacy 40.3 ml/min; Est GFR (Non-African American) 47.4 ml/min; Potassium 4.2 mmol/L (3.5-5.1)
[2021-10-25 08:06] LABS: Estimated Average Glucose 120 mg/dl; Hemoglobin A1C 5.8 % (4.5-5.6)
[2021-10-25] MEDS ORDERED: OMEGA-3 (PURIFIED FISH OIL) 1 GM CAP PO SCH (09:00)
[2021-10-25] MEDS ORDERED: CURCUMIN PO SCH (09:00)
[2021-10-25] MEDS ORDERED: ASPIRIN 81 MG ECTAB PO SCH (09:00)
[2021-10-25] MEDS ORDERED: CLOPIDOGREL BISULFATE 75 MG TAB PO SCH (09:00)
[2021-10-25] MEDS ORDERED: VENLAFAXINE HCL XR 37.5 MG CAPXR PO SCH (09:00)
[2021-10-25] MEDS ORDERED: CHOLECALCIFEROL 1,000 UNITS 25 MCG TAB PO SCH (09:00)
[2021-10-25] MEDS ORDERED: LORazepam 0.5 MG in SYRINGE 0.25 ML IV PRN (09:25)
--- NOTE | 2021-10-25 10:27 | Magnetic Resonance Report ---
Brain MRI WITHOUT CONTRAST HISTORY: Sudden visual loss. tia/stroke r/o TECHNIQUE: Multiplanar multisequence MRI of the brain was performed without the use of contrast. COMPARISON STUDY: Head CT 10/24/2021. FINDINGS: There is no mass, hematoma, midline shift, or acute infarct. The ventricles and sulci demon strate mild age-related involutional changes. Scattered foci of T2 hyperintensity seen within the per iventricular and subcortical white matter are nonspecific but suggestive of mild microvascular ischem ic changes. The major vascular flow voids at the skull base are well-maintained. Mild mucosal thicken ing within the paranasal sinuses with complete opacification of the right sphenoid sinus. This remain s unchanged. The mastoid air cells are clear. Bilateral lens replacement noted. IMPRESSION: 1. No acute infarct or intracranial hemorrhage. 2. Mild atrophy and microvascular ischemic changes. 3. Sinus disease as described above. ACT 112: Negative or not required by law. Electronically signed by: Cameron Mills M.D. 10/25/2021 10:24 AM
[2021-10-25] MEDS ORDERED: LOSARTAN POTASSIUM 25 MG TAB PO SCH (11:30)
--- NOTE | 2021-10-25 11:35 | Neurology Consultation ---
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 This is consistent with a TIA to the eye ( amaurosis fugax. There was no evidence of TECHNOLOGY DEVELOPMENT INTERN involvement Otherwise. This event happened on 81 mg aspirin daily. Patient has history of hypertension and dyslipidemia. These would be risk factors for this event. CT angiography however showed no vascular anomalies or stenoses. Currently she is doing well with no focal findings, meningeal signs, or encephalopathy. Recommendations: 1. echocardiogram is pending. 2. Continue aspirin 81 mg plus clopidogrel 75 mg daily for 3 weeks and then switched to clopidogrel 75 mg alone. 3. She seems to have had muscle side effects to statins in the past. Perhaps a non statin could help her cholesterol. 4. control blood pressure as you are doing, aiming for a mean arterial pressure of approximately 95. 5. I have no further neurologic testing or treatment recommendations to make at this time. Follow-up with Her PCP. Overall, I spent a total of 60 minutes with this case including review of records, review of MRI films, direct evaluation the patient at bedside, and discussion of the case with the patient and RN at bedside and Dr. Key including differential diagnosis and treatment options. History of Present Illness Reason for Consultation: Patient is an 81-year-old, was I asked to see at the request of Dr. Boo, for neurologic consultation regarding transient vision loss in the right eye. Requesting Physician: Dr. Boo Attending Physician: Antony Key DO History of Present Illness This patient has a history of coronary artery disease and [place] in 2016. She has longstanding dyslipidemia and hypertension over the last 6 years as well. She has been on 81 mg aspirin tablet daily. Patient went to sleep, around 10:30 p.m. October 23, feeling well. she awoke at 4:00 a.m. and noticed that she could not see out of her right eye. There was no pain in the head her eye. It was like looking through "dark, sparkly, crack ed glass". There was no speech or mentation problem and no pain, weakness, or numbness in the arms or legs. She waited and by 1.5 hours it gradually faded back to normal. she went to see Dr. Martin, dowel machine operator, who did a complete eye exam and found no significant ophthalmologic problems. He sent her to the emergency room. She arrived to the emergency room October 24 at 4:22 p.m. the temperature of 36.7, pulse 70 and regular, respiratory rate 18, blood pressure 171/78, and O2 saturation 98%. Her neurologic examination was unremarkable without focal findings. CBC and Chem profile were unremarkable. I reviewed these with the patient. CT scan of the head was unremarkable CT angiography of the head and neck showed no occlusion or vascular anomalies diffusely. MRI of the brain was obtained this morning and showed no stroke. She does have some mild old small vessel ischemic changes and I reviewed these with the patient. This morning, the patient is asymptomatic has had no further episodes of vision loss. Allergies Allergy/AdvReac Type Severity Reaction Status Date / Time Iodinated Contrast Media Allergy Intermediate ITCHY RASH Verified 09/03/21 10:41 on arms Ymqcvky-PDN-HyG Reductase Allergy Intermediate MUSCLE Verified 09/03/21 10:41 Inhibitor ACHES, [Xqvarli-Eye-Agb Reductase PAINS Inhibitor] ezetimibe [From Zetia] Allergy Mild joints Verified 09/03/21 10:41 aches clarithromycin AdvReac Intermediate NAUSEA Verified 09/03/21 10:41 Home Medications Medication Instructions Recorded Confirmed Type coenzyme Q10 100 mg capsule 100 mg PO HS 12/12/17 09/03/21 History (CoQ-10) losartan 25 mg tablet 25 mg PO QDL 12/12/17 09/03/21 History metoprolol succinate 25 mg 25 mg PO HS 12/12/17 09/03/21 History tablet,extended release 24 hr cholecalciferol (vitamin D3) 50 2,000 unit PO QAM 04/28/19 09/03/21 History mcg (2,000 unit) capsule (Vitamin D3) aspirin 81 mg tablet,delayed 81 mg PO QAM 03/02/20 09/03/21 History release (Ravindra Low Dose Aspirin) levothyroxine 50 mcg tablet 50 mcg PO DAILY #90 tabs 01/14/21 09/03/21 Rx Hzplcaau8x 1,000 mg PO DAILY 01/28/21 09/03/21 History krill 500 mg-omega 3 115 mg-dha 30 1 cap PO DAILY 01/28/21 09/03/21 History mg-epa 64 jk-xxoljer-yycwb capsule (MegaRed [place]-3 Krill Oil) prednisone 10 mg tablet 10 mg PO DAILY PRN chronic 04/07/21 09/03/21 Rx bronchitis #30 tabs venlafaxine 37.5 mg 37.5 mg PO DAILY #90 caps 09/26/21 Rx capsule,extended release 24 hr (Effexor XR) ibuprofen 400 mg tablet 400 mg PO Q6H PRN pain #16 tabs 10/13/21 Rx Patient History Medical History Anemia CAD (coronary artery disease) Stent of LAD 2015 Chronic sinusitis Dupuytren's contracture of left hand GERD (gastroesophageal reflux disease) Hiatal hernia History of esophageal dilatation Hyperlipidemia statin intolerant Hypertension Hypothyroidism Left rotator cuff tear NSTEMI (non-ST elevated myocardial infarction) Sep 26, 2015 > [facility] > follows Dr. Fabian Osteoarthritis Osteopenia TIA (transient ischemic attack) (2007) Surgical History History of cardiac cath [place] [facility] History of colonoscopy History of endoscopic sinus surgery x2 History of esophagogastroduodenoscopy (EGD) History of heart artery stent (~2015) [place] [facility], 1 stent placed History of hemorrhoidectomy History of hysterectomy Hx of cataract surgery bilt Family History Father , age 58 of an [place] Myocardial infarction Brother Myocardial infarction Stroke Mother , age 84 of a stroke Stroke Sister Pancreatic cancer Leukemia Brother Lung cancer Other No family history of adverse response to anesthesia Denies family history of Ovarian cancer Prostate cancer Breast cancer Colorectal cancer Social History Smoking Status: Never smoker Second Hand Exposure: No; Hx Alcohol Use: No Hx Substance Use: No Preferred Language: Moldovan Communication Ability: Effective Visual Impairment: No Limitations Hearing Ability: Hard of Hearing Child Support Agent Required: No Beliefs That Will Affect Care: None marital status: Current Living Situation: Alone current occupational status: retired 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 [employer] Other Information That Helps Us Care for You: No Feels Safe at Home: Yes Safety Concerns: Feels Safe At This Time Childhood Exposure to Second-Hand Smoke: No Dental Care, Regularly: No Physical Activity Frequency: 3-4 Times per Week Seatbelt Use: always Sunscreen Use: No Assistive Devices: None Results & Data ([facility]) Vital Signs (Past 12 Hours) Vital Signs Temp Pulse Pulse Resp BP BP Pulse Ox 10/25/21 10:59 36.3 C L 72 16 123/76 95 10/25/21 08:00 76 10/25/21 07:20 36.7 C 78 20 127/65 96 10/25/21 00:45 36.7 C 118 H 16 144/99 H 96 O2 Del Method 10/25/21 10:59 Room Air 10/25/21 08:00 10/25/21 07:20 Room Air 10/25/21 00:45 Room Air PG Care Time/CCT Total # of Minutes Spent Total Time Spent with Patient: Total time spent is greater than 50% in coordination of care (as documented) at patient's floor/unit and/or counseling patient: Coding Level of Care Code 76064 Initial Inpt Care Lvl 3 Diagnoses AF (amaurosis fugax) G45.3 TIA (transient ischemic attack) G45.9 Hypertension I10 Hypertension type: essential hypertension Hyperlipidemia E78.5 Hyperlipidemia type: unspecified Time Spent (min) 60 (1) Hypertension Hypertension type: essential hypertension Qualified Code(s): I10 - Essential (primary) hypertension (2) Hyperlipidemia Hyperlipidemia type: unspecified Qualified Code(s): E78.5 - Hyperlipidemia, unspecified
--- NOTE | 2021-10-25 13:03 | XCELERA ---
[id number]
[2021-10-25] MEDS ORDERED: STROKE PATIENT DISCHARGE STA (13:20)
--- NOTE | 2021-10-25 13:51 | Pharmacy Report ---
Pharmacist Stroke Counseling - Date of Service October 25, 2021 - Scope: Pharmacy has been consulted to provide medication discharge counseling for this patient admitted with transient ischemic attack as per the Pharmacist Discharge Counseling for Stroke Patients Protocol. - Medications on Discharge: Home Medications Medication Instructions Recorded Confirmed coenzyme Q10 100 mg capsule 100 mg PO HS 12/12/17 09/03/21 (CoQ-10) losartan 25 mg tablet 25 mg PO QDL 12/12/17 09/03/21 metoprolol succinate 25 mg 25 mg PO HS 12/12/17 09/03/21 tablet,extended release 24 hr cholecalciferol (vitamin D3) 50 2,000 unit PO QAM 04/28/19 09/03/21 mcg (2,000 unit) capsule (Vitamin D3) aspirin 81 mg tablet,delayed 81 mg PO QAM 03/02/20 09/03/21 release (Ravindra Low Dose Aspirin) Vxnclegr3a 1,000 mg PO DAILY 01/28/21 09/03/21 krill 500 mg-omega 3 115 mg-dha 30 1 cap PO DAILY 01/28/21 09/03/21 mg-epa 64 gj-xplqxbu-eqxue capsule (MegaRed [place]-3 Krill Oil) New Rx's Medication Instructions Recorded levothyroxine 50 mcg tablet 50 mcg PO DAILY #90 tabs 01/14/21 prednisone 10 mg tablet 10 mg PO DAILY PRN chronic 04/07/21 bronchitis #30 tabs venlafaxine 37.5 mg 37.5 mg PO DAILY #90 caps 09/26/21 capsule,extended release 24 hr (Effexor XR) ibuprofen 400 mg tablet 400 mg PO Q6H PRN pain #16 tabs 10/13/21 clopidogrel 75 mg tablet (Plavix) 75 mg PO DAILY #30 tabs 10/25/21 - Action: The above medications, specifically ones for stroke treatment/prophylaxis, have been reviewed in detail with the patient prior to discharge. This includes indication, common adverse reactions, drug interactions, and medication administration. Medication counseling has been employed using the teach-back method to ensure understanding. - Outcome: The patient has demonstrated understanding of the medications. Additional comments: Discussed how patient uses pill box and that she will jessica her calender to take aspirin + Plavix x 3 weeks, then stop aspirin. Discussed side effects of possible bleeding and if continued bleeding to call doctor. Discussed hemorrhoids bleeding and difference in bright red vs black stools. Patient appreciative of counseling and demonstrated great understanding of her own care. Thank you for allowing pharmacy to be involved in the care of this patient. Please call [phone] with any additional questions
--- NOTE | 2021-10-25 16:06 | Discharge Summary ---
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 Specifically, she awoke this morning at 4 AM with blindness of the right eye that lasted until 530 before spontaneously resolving. She denies headache, focal extremity weakness, chest pain, shortness of breath, loss of consciousness, nausea/vomiting, or dysarthria. She presented to her field care coordinator office, where her pupils were dilated and posterior eye was examined. According to the field care coordinator, everything appeared normal so she was sent to the emergency room to rule out TIA. She has no symptoms at present. She had a prior episode of a suspected TIA (expressive aphasia) in 2005, for which TIA work-up including MRI was negative. In the ED, she was evaluated with CT head, CTA head, CTA neck, all of which were negative for acute or subacute ischemic findings. She was then admitted to the hospital overnight for observation and stroke rule out, with a pending morning MRI head. Principal Diagnosis TIA Discharge Exam In general she is awake and alert pleasant no distress. HEENT normocephalic atraumatic mucous membranes moist. Breathing unlabored no accessory muscle use good effort. Skin shows no rashes no pallor or icterus. Neuro without focal deficits. Discharge Data Allergies Allergy/AdvReac Type Severity Reaction Status Date / Time Iodinated Contrast Media Allergy Intermediate ITCHY RASH Verified 09/03/21 10:41 on arms Ouxeuor-IKK-HzR Reductase Allergy Intermediate MUSCLE Verified 09/03/21 10:41 Inhibitor ACHES, [Czdpiof-Zam-Sgw Reductase PAINS Inhibitor] ezetimibe [From Zetia] Allergy Mild joints Verified 09/03/21 10:41 aches clarithromycin AdvReac Intermediate NAUSEA Verified 09/03/21 10:41 Consultations 10/24/21 21:07 ED Decision to Admit Stat 10/25/21 00:40 Consult Neurology Routine Ordered Studies 10/24/21 16:26 CT head/brain wo con Stat 10/24/21 18:38 CT angio head w con Stat CT angio neck with con Stat 10/25/21 00:40 MR brain wo con Routine Hospital Course (1) TIA (transient ischemic attack): Symptoms of transient vision lossnow totally resolved -Echo and cardiac monitoring without findings consistent with central embolic phenomenon. Large vessels clear. 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 We will defer to his judgment on whether or not repeated testing would be indicated Total Time Total Time Spent Total Time Spent (In Minutes): Greater than 30 Discharge Plan Discharge Items Patient Disposition: Home - Self-Care Reason For Visit: TIA / STROKE RULE OUT Discharge Diagnosis: TIA Activity: Resume your previous activity Non-emergency contact: Primary Care Provider Call non-emergency contact if: you have any medication questions and your symptoms worsen Follow-up/Referrals: Karen Vega MD [Primary Care Provider] - Diet: Heart Healthy Addtl Attending Provider Instructions: TIA -Your transient vision loss was likely result of a TIA. What happens there is a small blood vessel gets temporarily blocked, but before there is any or damaged tissue, your body is able to restore blood flow. Given that we do not see any large blood vessel blockages, most likely it was at essentially a microscopic to capillary levelwhich is really the most common. -To prevent recurrence, typically the antiplatelet type medicines do the best for small blood vessels like this. You are currently on aspirin, we will be switching you to Plavix (clopidogrel) which is essentially a little bit stronger. For 3 weeks we will have you take both the aspirin and Plavix together, and then in 3 weeks stop your aspirin and just take the Plavix -While it almost certainly was small blood vessel blockages causing the problem, given that atrial fibrillation is relatively common in your age bracket, we have an echocardiogram donefortunately, overall it really looks quite normalthe results will go to Dr. Fabian. Further, I will defer to Dr. Fabian given that you just had one not that long ago, but unless he thinks it is totally unnecessary, I would definitely consider having him do a few week school lunch monitor you wear at home to screen for atrial fibrillation. Again atrial fibrillation is not likely the cause of this, but because you had a TIA now, and a TIA once in the distant past, it is pretty reasonable to consider. -Your cholesterols are still fairly high, a lot of the time the muscle aches that people attribute to statins are actually more the aches and pains of "daily life" to get Ms. attributed to the medication, but certainly with your background and history with this, I will defer what best to do about your cholesterol to Dr. Vega. Pending Studies at Discharge: No Stand-Alone Forms: Medications to Prevent Stroke, My [facility], Smoking Cessation Medications and DC Order Prescriptions: New clopidogrel [Plavix] 75 mg tablet 75 mg PO DAILY Qty: 30 0RF Continued levothyroxine 50 mcg tablet 50 mcg PO DAILY Qty: 90 3RF prednisone 10 mg tablet 10 mg PO DAILY PRN (Reason: chronic bronchitis ) Qty: 30 0RF venlafaxine [Effexor XR] 37.5 mg capsule,extended release 24hr 37.5 mg PO DAILY Qty: 90 3RF losartan 25 mg Tablet 25 mg PO QDL metoprolol succinate 25 mg Tablet Extended Release 24 Hr 25 mg PO HS coenzyme Q10 [CoQ-10] 100 mg Capsule 100 mg PO HS cholecalciferol (vitamin D3) [Vitamin D3] 50 mcg (2,000 unit) capsule 2,000 unit PO QAM aspirin [Ravindra Low Dose Aspirin] 81 mg Tablet,Delayed Release (Dr/Ec) 81 mg PO QAM inybl-mo-4-ghi-gal-obnimbz-ast [MegaRed [place]-3 Krill Oil] [id number] mg Capsule 1 cap PO DAILY [id number] 1,000 mg PO DAILY ibuprofen 400 mg tablet 400 mg PO Q6H PRN (Reason: pain) Qty: 16 0RF Discharge Orders: Discharge Order (Routine); Ordered 10/25/21 Ordered By: Antony Key Admission Data Admit Date/Time: 10/24/21 22:40 Attending Provider: Antony Key Admit Provider: Susu Boo Primary Care Provider: Karen Vega Other Providers: Tj Alejandre ; Chau Lopez ; Antonoi Fraga ; Mine Nunn ; Winter Car ; Michael Perez ; Winter Rodriguez ; Emiliano Lacey ; Maile Perez ; Marko Hamilton ; Estela Dutta ; Jolene Marion Other Interventions: Discharge Summary Assessment (RN) Last Done: 10/25/21 13:23 Coding Level of Care Code 00664 OBS Care - Discharge Diagnoses TIA (transient ischemic attack) G45.9
[2021-10-25] MEDS ORDERED: METOPROLOL SUCC 25MG EXT REL TAB PO SCH (21:00)
[2021-10-25] MEDS ORDERED: NON-FORMULARY MEDICATION (Coenzyme Q10 [Coq-10] 100 mg Capsule) PO SCH (21:00)
--- NOTE | 2021-10-26 02:01 | Billing Data ---
Date of Service October 26, 2021 Coding Level of Care Code INT OBSERVATION CARE 70M LVL 3
== END 2021-10-25 14:57 | disposition home or self-care (01) ==
LOC: ED 16:17 → 2E 16:17 → SUATTDRO 22:40 → 2E 10-25 00:49

== ENCOUNTER 2024-12-31 12:40 | Inpatient (IN) ==
[2024-12-31] MEDS: HEPARIN SOD (PORCINE) 1000 UNIT/ML IV ONE (13:00)
--- NOTE | 2024-12-31 13:00 | Emergency Department Note ---
Impression & Plan ST elevation (STEMI) myocardial infarction, Chest pain ED Provider Note NAME: DAVI MONTELONGO AGE: 84 SEX: F : 1940 ARRIVES VIA: Walk-In INFORMANT: Patient ED PROVIDER(S): Antony Tse DO CHIEF COMPLAINT: Chest pain HPI: Patient is an 84-year-old female with a past medical history of hypertension, hyperlipidemia, CAD who presents to the ER for chest pain. Symptoms started earlier today and have been waxing and waning. Has been constant for some time now. She also had this on Wednesday. Admits to some shortness of breath with it. No arm or jaw pain that she is aware of. Feels like her previous heart attack. ADDITIONAL HISTORY OBTAINED: Per HPI Chronic Medical/Social Conditions Affecting Care: Per HPI PAST MEDICAL HISTORY:See Below PAST SURGICAL HISTORY:See Below FAMILY HISTORY:See Below SOCIAL HISTORY:See Below HOME MEDICATIONS:See Below ALLERGIES:See Below VITALS:See Below PHYSICAL EXAMINATION: GENERAL: Sitting up in bed, alert, well appearing, well nourished, no distress, non-toxic EYE EXAM: normal conjunctiva. OROPHARYNX: no exudate, no erythema, lips, buccal mucosa, and tongue normal and mucous membranes are moist NECK: supple, no nuchal rigidity, no adenopathy, non-tender LUNGS: Clear to auscultation. Normal chest wall mechanics HEART: no murmurs, S1 normal and S2 normal ABDOMEN: abdomen soft, non-tender, normo-active bowel sounds, no masses, no rebound or guarding. BACK: Back is symmetrical on inspection and there is no deformity, no midline tenderness, no CVA tenderness. SKIN: no rashes and no bruising UPPER EXTREMITIES: upper extremities are grossly normal. LOWER EXTREMITIES: No pitting edema. NEURO EXAM: Normal sensorium, cranial nerves II-XII grossly intact, normal speech, no gross weakness of arms, no gross weakness of legs. MEDICAL DECISION MAKING: Patient is an 84-year-old female who presents to the ER for the below stated complaint. IV was established blood work was obtained. Upon entering the room they had obtain the EKG and it showed a STEMI. STEMI alert was called. Labs showed no significant leukocytosis or anemia. Patient was given a bolus of IV heparin while here in the ER. She is on Plavix. BMP along with LFTs bilirubin was unremarkable. Troponin was elevated over thousand. Chest x-ray was unremarkable. I discussed the case with the on-call interventional list. Patient was also given aspirin while in the ER. She was taken emergently to the [facility]. Consults/Care Managements Discussions: Per [facility] Triage Nursing notes reviewed. Limited review of prior medical records performed Vital Signs: reviewed and remarkable for no significant abnormalities Differential diagnosis: Cardiac ischemia, aortic dissection, pulmonary embolism, pneumothorax, pneumonia, pericarditis, myocarditis, esophageal rupture, GERD, cholecystitis, pancreatitis, musculoskeletal, as well as other pathologies. ER treatment provided: See below Diagnostics interpreted by me include EKG and cardiac monitoring as listed below: -Cardiac Monitoring: An order was placed for continuous cardiac monitoring. The monitor shows a rate of 70 with sinus rhythm. -ECG: Sinus rhythm rate [address] segment elevations in the high lateral leads with depressions throughout V3 V4 V5. Depressions in the inferior leads -Laboratory studies:Interpreted by me as stated above in MDM and shown below. Imaging studies: Xrays: As interpreted by me: Portable AP upright 1 view of the chest shows no focal infiltrate CTs show: none Procedures:none Critical Care: I have personally spent 33 minutes of critical care time in the direct management of this patient. This includes bedside care, interpretation of diagnostic studies, and testing, discussion with consultants, patient, and family members, and other required patient management activities. This 33 minutes is in excess of all separately billable procedures. Past Med/Surg History Problem List (Updated 12/31/24 @ 15:21 by Antony Tse DO) Chest pain (Acute) ST elevation (STEMI) myocardial infarction (Acute) Type 1 myocardial infarction Depression Hypertension (Chronic) Hyperlipidemia (Chronic) statin intolerant Osteoarthritis (Chronic) Hypothyroidism (Chronic) Osteopenia (Chronic) CAD (coronary artery disease) (Chronic) Stent of LAD 2015 Left rotator cuff tear (Chronic) Dupuytren's contracture of left hand (Chronic) Chronic sinusitis (Chronic) Anemia (Chronic) GERD (gastroesophageal reflux disease) (Chronic) Hiatal hernia (Chronic) Medical History History of non-ST elevation myocardial infarction (NSTEMI) (2015) TIA (transient ischemic attack) amaurosis fugax 2021 - switched from aspirin to Plavix History of esophageal dilatation Surgical History History of heart artery stent (~2016) [place] [facility] [place], [place] stent placed History of hemorrhoidectomy History of esophagogastroduodenoscopy (EGD) Hx of cataract surgery bilt History of colonoscopy History of hysterectomy History of endoscopic sinus surgery x2 History of cardiac cath 2016 @ [facility] [place] with stent placement Family History Father , age 58 of an [place] Myocardial infarction Brother Myocardial infarction Stroke Mother , age 84 of a stroke Stroke Sister Pancreatic cancer Leukemia Brother Lung cancer Son Esophageal cancer Other No family history of adverse response to anesthesia Denies family history of Ovarian cancer Prostate cancer Breast cancer Colorectal cancer Social History Smoking Status: Never smoker Second Hand Exposure: No; Do You Dip or Chew Tobacco: No; Hx Alcohol Use: No Hx Substance Use: No Preferred Language: Lao Communication Ability: Effective Visual Impairment: No Limitations Hearing Ability: Hard of Hearing Supervisor Body Assembly Required: No Beliefs That Will Affect Care: None marital status: Current Living Situation: Alone current occupational status: retired current occupation: retired from working [employer] ([place]) Feels Safe at Home: Yes Childhood Exposure to Second-Hand Smoke: No Diet: regular Dental Care, Regularly: No Physical Activity Frequency: 3-4 Times per Week Seatbelt Use: always Sunscreen Use: No Assistive Devices: Denture - Upper, Denture - Lower, Glasses and Hearing Aid - Bilateral Allergies Allergies Allergy/AdvReac Type Severity Reaction Status Date / Time Iodinated Contrast Media Allergy Intermediate ITCHY RASH Verified 07/14/24 11:28 on arms Hdxehco-XNQ-ZfO Reductase Allergy Intermediate MUSCLE Verified 07/14/24 11:28 Inhibitor ACHES, [Wmvozct-Fjn-Vok Reductase PAINS Inhibitor] ezetimibe [From Zetia] Allergy Mild joints Verified 07/14/24 11:28 aches clarithromycin AdvReac Intermediate NAUSEA Verified 07/14/24 11:28 Home Meds Home Medications Medication Instructions Recorded Confirmed coenzyme Q10 100 mg capsule 100 mg PO HS 12/12/17 12/31/24 (CoQ-10) losartan 25 mg tablet 25 mg PO QDL 12/12/17 12/31/24 cholecalciferol (vitamin D3) 50 2,000 unit PO QAM 03/06/20 11/09/25 mcg (2,000 unit) capsule (Vitamin D3) [id number] 1,000 mg PO DAILY 01/28/21 12/31/24 ascorbate calcium (vitamin C) 500 500 mg PO DAILY 08/02/23 12/31/24 mg tablet mecobalamin (vitamin B12) 500 mcg 500 mcg PO DAILY 08/02/23 12/31/24 chewable tablet tangy tangerine 0 mg PO DAILY 03/08/24 12/31/24 MegaRed [place]-3 Krill Oil 0 mg PO DAILY 12/31/24 12/31/24 ipratropium bromide 21 mcg (0.03 0 spray intranasal BID 12/31/24 12/31/24 %) nasal spray Previous Rx's Medication Instructions Recorded clopidogrel 75 mg tablet (Plavix) 75 mg PO DAILY #90 tabs 10/25/24 levothyroxine 50 mcg tablet 50 mcg PO DAILY #90 tabs 12/18/24 Results & Data (ED) Vital Signs Vital Signs - 24 hr 12/31/24 12:41 12/31/24 12:41 12/31/24 12:41 Temperature 36.9 C Temperature Source Oral Pulse Rate Pulse Rate [Apical] 83 Pulse Rate from SpO2 Sensor Respiratory Rate 18 Respiratory Effort / Characteristics Non-Labored Spontaneous Short of Breath Non-Labored Spontaneous Respiratory Depth Normal Normal Blood Pressure Blood Pressure [Right Arm] 140/80 Blood Pressure Mean Blood Pressure Mean [Right Arm] 100 Blood Pressure Position Blood Pressure Position [Right Arm] Semi-fowlers Pulse Oximetry 96 Oxygen Delivery Method Room Air Room Air Room Air Sepsis Recent Fever Within 48 Hours Sepsis New/Unexplained Change in Mental Status Sepsis Action Taken by Nursing 12/31/24 12:42 12/31/24 12:47 12/31/24 12:53 Temperature 36.2 C L Temperature Source Temporal Artery Scan Pulse Rate 81 83 Pulse Rate [Apical] Pulse Rate from SpO2 Sensor Respiratory Rate 18 18 Respiratory Effort / Characteristics Non-Labored Spontaneous Respiratory Depth Normal Blood Pressure 152/80 H 139/89 Blood Pressure [Right Arm] Blood Pressure Mean 104 119 Blood Pressure Mean [Right Arm] Blood Pressure Position Sitting Blood Pressure Position [Right Arm] Pulse Oximetry 95 96 Oxygen Delivery Method Room Air Room Air Sepsis Recent Fever Within 48 Hours No Sepsis New/Unexplained Change in Mental Status N/A Sepsis Action Taken by Nursing No Action Required 12/31/24 12:53 12/31/24 12:53 12/31/24 12:57 Temperature Temperature Source Pulse Rate 84 Pulse Rate [Apical] Pulse Rate from SpO2 Sensor Respiratory Rate 35 H Respiratory Effort / Characteristics Respiratory Depth Blood Pressure 139/89 139/89 Blood Pressure [Right Arm] Blood Pressure Mean 119 119 Blood Pressure Mean [Right Arm] Blood Pressure Position Blood Pressure Position [Right Arm] Pulse Oximetry Oxygen Delivery Method Sepsis Recent Fever Within 48 Hours Sepsis New/Unexplained Change in Mental Status Sepsis Action Taken by Nursing 12/31/24 13:03 12/31/24 13:03 12/31/24 13:04 Temperature Temperature Source Pulse Rate 85 84 Pulse Rate [Apical] Pulse Rate from SpO2 Sensor Respiratory Rate Respiratory Effort / Characteristics Respiratory Depth Blood Pressure 140/80 Blood Pressure [Right Arm] Blood Pressure Mean 111 Blood Pressure Mean [Right Arm] Blood Pressure Position Blood Pressure Position [Right Arm] Pulse Oximetry Oxygen Delivery Method Sepsis Recent Fever Within 48 Hours Sepsis New/Unexplained Change in Mental Status Sepsis Action Taken by Nursing 12/31/24 13:05 12/31/24 13:05 12/31/24 13:05 Temperature Temperature Source Pulse Rate Pulse Rate [Apical] Pulse Rate from SpO2 Sensor Respiratory Rate Respiratory Effort / Characteristics Respiratory Depth Blood Pressure 136/76 136/76 136/76 Blood Pressure [Right Arm] Blood Pressure Mean 81 81 81 Blood Pressure Mean [Right Arm] Blood Pressure Position Blood Pressure Position [Right Arm] Pulse Oximetry Oxygen Delivery Method Sepsis Recent Fever Within 48 Hours Sepsis New/Unexplained Change in Mental Status Sepsis Action Taken by Nursing 12/31/24 13:05 12/31/24 13:05 12/31/24 13:09 Temperature Temperature Source Pulse Rate 81 Pulse Rate [Apical] Pulse Rate from SpO2 Sensor 82 Respiratory Rate 15 Respiratory Effort / Characteristics Respiratory Depth Blood Pressure 136/76 136/76 Blood Pressure [Right Arm] Blood Pressure Mean 81 81 Blood Pressure Mean [Right Arm] Blood Pressure Position Blood Pressure Position [Right Arm] Pulse Oximetry 98 Oxygen Delivery Method Sepsis Recent Fever Within 48 Hours Sepsis New/Unexplained Change in Mental Status Sepsis Action Taken by Nursing 12/31/24 13:10 12/31/24 13:10 12/31/24 13:10 Temperature Temperature Source Pulse Rate Pulse Rate [Apical] Pulse Rate from SpO2 Sensor Respiratory Rate Respiratory Effort / Characteristics Respiratory Depth Blood Pressure 131/82 131/82 131/82 Blood Pressure [Right Arm] Blood Pressure Mean 98 98 98 Blood Pressure Mean [Right Arm] Blood Pressure Position Blood Pressure Position [Right Arm] Pulse Oximetry Oxygen Delivery Method Sepsis Recent Fever Within 48 Hours Sepsis New/Unexplained Change in Mental Status Sepsis Action Taken by Nursing 12/31/24 13:10 12/31/24 13:10 12/31/24 13:12 Temperature Temperature Source Pulse Rate 79 Pulse Rate [Apical] Pulse Rate from SpO2 Sensor 80 Respiratory Rate 24 Respiratory Effort / Characteristics Respiratory Depth Blood Pressure 131/82 131/82 Blood Pressure [Right Arm] Blood Pressure Mean 98 98 Blood Pressure Mean [Right Arm] Blood Pressure Position Blood Pressure Position [Right Arm] Pulse Oximetry 98 Oxygen Delivery Method Sepsis Recent Fever Within 48 Hours Sepsis New/Unexplained Change in Mental Status Sepsis Action Taken by Nursing 12/31/24 13:15 12/31/24 13:16 12/31/24 13:16 Temperature Temperature Source Pulse Rate 89 Pulse Rate [Apical] Pulse Rate from SpO2 Sensor 84 Respiratory Rate 17 Respiratory Effort / Characteristics Respiratory Depth Blood Pressure 150/111 H 150/111 H Blood Pressure [Right Arm] Blood Pressure Mean 121 121 Blood Pressure Mean [Right Arm] Blood Pressure Position Blood Pressure Position [Right Arm] Pulse Oximetry 95 Oxygen Delivery Method Sepsis Recent Fever Within 48 Hours Sepsis New/Unexplained Change in Mental Status Sepsis Action Taken by Nursing 12/31/24 13:16 12/31/24 13:16 12/31/24 13:18 Temperature Temperature Source Pulse Rate 80 Pulse Rate [Apical] Pulse Rate from SpO2 Sensor 81 Respiratory Rate 13 Respiratory Effort / Characteristics Respiratory Depth Blood Pressure 150/111 H 150/111 H Blood Pressure [Right Arm] Blood Pressure Mean 121 121 Blood Pressure Mean [Right Arm] Blood Pressure Position Blood Pressure Position [Right Arm] Pulse Oximetry 98 Oxygen Delivery Method Sepsis Recent Fever Within 48 Hours Sepsis New/Unexplained Change in Mental Status Sepsis Action Taken by Nursing 12/31/24 13:20 12/31/24 13:20 12/31/24 13:20 Temperature Temperature Source Pulse Rate Pulse Rate [Apical] Pulse Rate from SpO2 Sensor Respiratory Rate Respiratory Effort / Characteristics Respiratory Depth Blood Pressure 135/75 135/75 135/75 Blood Pressure [Right Arm] Blood Pressure Mean 102 102 102 Blood Pressure Mean [Right Arm] Blood Pressure Position Blood Pressure Position [Right Arm] Pulse Oximetry Oxygen Delivery Method Sepsis Recent Fever Within 48 Hours Sepsis New/Unexplained Change in Mental Status Sepsis Action Taken by Nursing 12/31/24 13:20 12/31/24 13:20 12/31/24 13:21 Temperature Temperature Source Pulse Rate 81 Pulse Rate [Apical] Pulse Rate from SpO2 Sensor 81 Respiratory Rate 15 Respiratory Effort / Characteristics Respiratory Depth Blood Pressure 135/75 135/75 Blood Pressure [Right Arm] Blood Pressure Mean 102 102 Blood Pressure Mean [Right Arm] Blood Pressure Position Blood Pressure Position [Right Arm] Pulse Oximetry 98 Oxygen Delivery Method Sepsis Recent Fever Within 48 Hours Sepsis New/Unexplained Change in Mental Status Sepsis Action Taken by Nursing Laboratory Data 12/31/24 12:56 12/31/24 12:56 Lab Results 12/31/24 12/31/24 Range/Units 12:56 13:00 WBC 5.36 (4.8-10.8) K/ul RBC 4.64 (4.20-5.40) M/uL Hgb 12.5 (12.0-16.0) g/dl POC Hgb 13.3 (12.0-16.0) g/dl Hct 38.6 (37.0-47.0) % POC Hct 39 (37-47) % MCV 83.2 (80.0-100.0) fL MCH 26.9 (25.0-34.0) pg MCHC 32.4 (32.0-36.0) g/dL RDW Std Deviation 41.7 (36.4-46.3) fL RDW Coeff of Tessie 13.7 (11.5-14.5) % Plt Count 284 (130-400) K/uL MPV 10.0 (9.4-12.4) fL Immature Gran % (Auto) 0.2 % Neut % (Auto) 57.4 % Lymph % (Auto) 27.8 % [place] % (Auto) 9.5 % Eos % (Auto) 3.2 % Baso % (Auto) 1.9 % Neut # (Auto) 3.08 (1.40-6.50) K/uL Lymph # (Auto) 1.49 (1.20-3.40) K/uL [place] # (Auto) 0.51 (0.11-0.59) K/uL Eos # (Auto) 0.17 (0.00-0.50) K/uL Baso # (Auto) 0.10 (0.00-0.20) K/uL Immature Gran # (Auto) 0.01 (0.01-0.20) K/uL POC Sodium 139 (135-144) mmol/L Sodium 140 (136-145) mmol/L POC Potassium 3.6 (3.3-5.0) mmol/L Potassium 3.7 (3.5-5.1) mmol/L POC Chloride 101 (101-112) mmol/L Chloride 103 (98-107) mmol/L Carbon Dioxide 29 (21-32) mmol/L POC Total CO2 26 (24-31) mmol/L Anion Gap 8 (3-11) POC Anion Gap 16.0 (16-25) mmol/L POC BUN 15 (7-18) mg/dl BUN 16 (6-23) mg/dl Creatinine 1.20 (0.6-1.2) mg/dl POC Creatinine 1.3 (0.6-1.3) mg/dl Est Cr Clr Drug Dosing 34.3 ml/min eGFR 44.08 BUN/Creatinine Ratio 13.3 (10-20) Glucose 109 H (70-99(Fasting)) mg/dl POC Glucose (other) 108 H (70-99) mg/dl Calcium 9.6 (8.6-10.3) mg/dl POC Ioniz Calcium Lisset 1.16 (1.12-1.32) mmol/l Total Bilirubin 0.7 (0.2-1.0) mg/dl AST 28 (13-39) U/L ALT 14 (7-52) U/L Alkaline Phosphatase 63 (34-104) U/L Troponin I High Sens 1161.1 H* (0-14) pg/ml Total Protein 7.2 (6.0-8.3) gm/dl Albumin 3.9 (3.4-5.0) gm/dl Globulin 3.3 (2.5-4.0) gm/dl Albumin/Globulin Ratio 1.2 (0.9-2) Lipase 31 (11-82) U/L Administered Medications Discontinued Medications Aspirin (Aspirin Chew 324 Mg) Confirm Administered Dose 324 mg .ROUTE .STK-MED ONE Stop: 12/31/24 12:58 Last Admin: 12/31/24 13:01 Dose: 324 mg Documented By: LCD Fentanyl Citrate (Fentanyl Citrate Pf 100 Mcg/2 Ml Vial) Confirm Administered Dose 100 mcg .ROUTE .STK-MED ONE Stop: 12/31/24 14:19 Last Increment: 12/31/24 14:42 Dose: 50 mcg Documented By: [id number] Heparin Sodium (Porcine) (Heparin Sod (Porcine) 1000 Unit/Ml) 4,000 units IV NOW ONE Stop: 12/31/24 12:58 Last Admin: 12/31/24 13:00 Dose: 4,000 units Documented By: TAMY Co-signed By: ELAINE Heparin Sodium (Porcine) (Heparin (Porcine) 1000 Unit/Ml 10 Ml ([facility] Use Only)) Confirm Administered Dose 10,000 units .ROUTE .STK-MED ONE Stop: 12/31/24 14:19 Last Admin: 12/31/24 14:42 Dose: 5,000 units Documented By: [id number] Heparin Sodium/Sodium Chloride (Heparin In Nss Infusion 1000 Unit/500 Ml (2 U/Ml) Bag) Confirm Administered Dose 3,000 units IV .STK-MED ONE Stop: 12/31/24 14:19 Last Admin: 12/31/24 14:43 Dose: 3,000 units Documented By: [id number] Ioversol (Optiray 350) Confirm Administered Dose 1 ml .ROUTE .STK-MED ONE Stop: 12/31/24 14:19 Last Admin: 12/31/24 14:43 Dose: 120 ml Documented By: [id number] Midazolam HCl (Midazolam Hcl 1 Mg/Ml 2ml Vial) Confirm Administered Dose 2 mg .ROUTE .STK-MED ONE Stop: 12/31/24 14:19 Last Admin: 12/31/24 14:43 Dose: 2 mg Documented By: [id number] Nicardipine HCl (Nicardipine 2,000 Mcg/20 Ml Syr) Confirm Administered Dose 2,000 mcg .ROUTE .STK-MED ONE Stop: 12/31/24 14:19 Last Admin: 12/31/24 14:44 Dose: Not Given Documented By: GILBERT Nitroglycerin/Dextrose (Nitroglycerin/D5w 100mcg/Ml 20ml Syr) Confirm Administered Dose 2,000 mcg .ROUTE .STK-MED ONE Stop: 12/31/24 14:19 Last Admin: 12/31/24 14:44 Dose: 2,000 mcg Documented By: [id number] Imaging Data Radiologist's Impression: Chest X-Ray 12/31/24 12:47 XR chest 1V portable CLINICAL HISTORY: Chest pain, nonspecific COMPARISON STUDY: Chest radiograph October 13, 2021. Chest CT May 23, 2014. FINDINGS: No pneumothorax or pleural effusion is present. Linear bibasilar densities favor atelectasis. A large hiatal hernia is present. Moderate cardiomegaly is noted. There is no evidence for pulmonary edema. IMPRESSION: 1. No acute cardiopulmonary findings. 2. Cardiomegaly. 3. Large hiatal hernia. ACT 112: Negative or not required by law. Electronically signed by: Joselito Vega M.D. 12/31/2024 2:20 PM Discharge Plan Visit Data Chief Complaint: Chest Pain Stated Complaint: CHEST PAIN, SHORTNESS OF BREATH ED Provider: Antony Tse Discharge Problem: ST elevation (STEMI) myocardial infarction, Chest pain Patient Disposition: Being Evaluated by Surgeon Condition: Critical Discharge Instructions Interventions: ED Discharge Assessment Last Done: 12/31/24 13:25 Discharge Problem: ST elevation (STEMI) myocardial infarction Qualifiers: Involved coronary artery: unspecified coronary artery Qualified Code(s): I21.3 - ST elevation (STEMI) myocardial infarction of unspecified site Chest pain Qualifiers: Chest pain type: unspecified Qualified Code(s): R07.9 - Chest pain, unspecified
[2024-12-31] MEDS: ASPIRIN CHEW 324 MG ONE (13:01)
[2024-12-31 13:18] LABS: Hematocrit (blood only) 38.6 % (37.0-47.0); Hemoglobin 12.5 g/dl (12.0-16.0); Immature Granulocytes # (auto) 0.01 K/uL (0.01-0.20); Immature Granulocytes % (auto) 0.2 %; Mean Corpuscular Hemoglobin 26.9 pg (25.0-34.0); Mean Corpuscular Volume 83.2 fL (80.0-100.0); Platelet Count 284 K/uL (130-400); RDW Standard Deviation 41.7 fL (36.4-46.3); Red Blood Count 4.64 M/uL (4.20-5.40); White Blood Count 5.36 K/ul (4.8-10.8)
--- NOTE | 2024-12-31 13:24 | Pre Anesthesia Assessment ---
Date of Service December 31, 2024 Pre Sedation Assessment Vital Signs Temp Pulse Pulse Resp BP BP Pulse Ox 12/31/24 13:03 85 12/31/24 12:47 83 18 96 12/31/24 12:42 36.2 C L 81 18 152/80 H 95 12/31/24 12:41 36.9 C 83 18 140/80 96 12/31/24 12:41 12/31/24 12:41 O2 Del Method 12/31/24 13:03 12/31/24 12:47 Room Air 12/31/24 12:42 Room Air 12/31/24 12:41 Room Air 12/31/24 12:41 Room Air 12/31/24 12:41 Room Air Cardiovascular RRR, no murmur, no edema Respiratory normal respiratory effort, lungs clear to auscultation Pre-Sedation Airway Assessment Smoking Status: Never smoker Mallampati Class: II ASA: ASA2 Procedure Planning Current Medications Reviewed: Yes Notes The planned sedation has been discussed with the patient. Informed Consent was obtained. I have identified the patient, determined the appropriateness of sedation and have assessed the patient immediately prior to the procedure. All medicine(s) and interventions are by my order.
[2024-12-31 13:37] LABS: Alanine Aminotransferase 14.0 U/L (7-52); Albumin Globulin Ratio 1.2 (0.9-2); Albumin Level 3.9 gm/dl (3.4-5.0); Alkaline Phosphatase 63.0 U/L (34-104); Anion Gap 8.0 (3-11); Bilirubin,Total 0.7 mg/dl (0.2-1.0); Blood Urea Nitrogen 16.0 mg/dl (6-23); Calcium 9.6 mg/dl (8.6-10.3); Carbon Dioxide 29.0 mmol/L (21-32); Chloride 103.0 mmol/L (98-107); Creatinine Clr Calc Pharmacy 34.3 ml/min; Globulin 3.3 gm/dl (2.5-4.0); Glucose 109.0 mg/dl (70-99(Fasting)); Lipase 31.0 U/L (11-82); Potassium 3.7 mmol/L (3.5-5.1); Sodium 140.0 mmol/L (136-145); Total Protein 7.2 gm/dl (6.0-8.3)
--- NOTE | 2024-12-31 13:38 | History & Physical Report ---
Date of Service December 31, 2024 Assessment & Plan (1) Type 1 myocardial infarction: Plan In summary this is an 84-year-old female who presented with chest pain, found to have EKG changes concerning for an acute myocardial infarction #Type 1 Myocardial Infarction Initial onset began on the day of presentation and has waxed and waned since then; is notably worse with activity; this is not similar to her previous heart attack, noting that her prior episode was with far less discomfort; established risk factors include hypertension, hyperlipidemia, statin intolerance, GENEVIEVE; initial EKG concerning for acute anterior versus lateral infarct; initial troponin still pending at the time of evaluation; unable to calculate liane score due to pending troponin -Maintain continuous cardiac technologist -Nursing to contact attending if patient develops recurrent or new anginal equivalent -Anticipate ASA 81 mg p.o. daily -Anticipate DAPT pending cardiology's recommendation post catheterization -Obtain CMP, CBC without differential on 01/01 -No clear benefit to trending troponin given emergent catheterization, defer to Cardiology's recommendation -Cardiology and Crticial Care consulted History of Present Illness Chief Complaint: Chest pressure Primary Care Provider: Karen Vega MD Ms. Schmid is an 84-year-old female whose active medical conditions include hypertension, hyperlipidemia, coronary atherosclerotic disease with previous myocardial infarction, large hiatal hernia among other chronic medical conditions who presented to the [facility] on 12/31 due to persistent substernal chest discomfort. Her initial chest pain began on 12/29 during activity, which quickly resolved. Beginning on the day of presentation, she was performing her usual daily activities when she had sudden recurrence of her chest pain similar to what she had experienced on 12/29 and has waxed and wa miki since this morning. She denies any associated jaw pain or shoulder pain. She does endorse some dyspnea with exertion but denies any resting shortness of breath, orthopnea, platypnea, pleuritic chest pain, palpitations, nausea, vomiting. She states this is significantly different from her previous heart attack which was far less painful than her current circumstance. Allergies Allergy/AdvReac Type Severity Reaction Status Date / Time Iodinated Contrast Media Allergy Intermediate ITCHY RASH Verified 07/14/24 11:28 on arms Mofsdcy-HHK-QwU Reductase Allergy Intermediate MUSCLE Verified 07/14/24 11:28 Inhibitor ACHES, [Pufjfla-Sds-Lgr Reductase PAINS Inhibitor] ezetimibe [From Zetia] Allergy Mild joints Verified 07/14/24 11:28 aches clarithromycin AdvReac Intermediate NAUSEA Verified 07/14/24 11:28 Home Medications Medication Instructions Recorded Confirmed Type coenzyme Q10 100 mg capsule 100 mg PO HS 12/12/17 12/31/24 History (CoQ-10) losartan 25 mg tablet 25 mg PO QDL 12/12/17 12/31/24 History cholecalciferol (vitamin D3) 50 2,000 unit PO QAM 04/28/19 12/31/24 History mcg (2,000 unit) capsule (Vitamin D3) Rxlmoomb2p 1,000 mg PO DAILY 01/28/21 12/31/24 History ascorbate calcium (vitamin C) 500 500 mg PO DAILY 08/02/23 12/31/24 History mg tablet mecobalamin (vitamin B12) 500 mcg 500 mcg PO DAILY 08/02/23 12/31/24 History chewable tablet tangy tangerine 0 mg PO DAILY 03/08/24 12/31/24 History clopidogrel 75 mg tablet (Plavix) 75 mg PO DAILY #90 tabs 10/25/24 12/31/24 Rx levothyroxine 50 mcg tablet 50 mcg PO DAILY #90 tabs 12/18/24 12/31/24 Rx MegaRed Hannah-3 Krill Oil 0 mg PO DAILY 12/31/24 12/31/24 History ipratropium bromide 21 mcg (0.03 0 spray intranasal BID 12/31/24 12/31/24 History %) nasal spray Past Med/Surg History Problem List (Updated 12/31/24 @ 13:43 by George Jim DO) Type 1 myocardial infarction Depression Hypertension (Chronic) Hyperlipidemia (Chronic) statin intolerant Osteoarthritis (Chronic) Hypothyroidism (Chronic) Osteopenia (Chronic) CAD (coronary artery disease) (Chronic) Stent of LAD 2015 Left rotator cuff tear (Chronic) Dupuytren's contracture of left hand (Chronic) Chronic sinusitis (Chronic) Anemia (Chronic) GERD (gastroesophageal reflux disease) (Chronic) Hiatal hernia (Chronic) Medical History History of non-ST elevation myocardial infarction (NSTEMI) (2015) TIA (transient ischemic attack) amaurosis fugax 2021 - switched from aspirin to Plavix History of esophageal dilatation Surgical History History of heart artery stent (~2016) @ [facility] [place], 1 stent placed History of hemorrhoidectomy History of esophagogastroduodenoscopy (EGD) Hx of cataract surgery bilt History of colonoscopy History of hysterectomy History of endoscopic sinus surgery x2 History of cardiac cath 2016 @ [facility] [place] with stent placement Family History Father , age 58 of an [place] Myocardial infarction Brother Myocardial infarction Stroke Mother , age 84 of a stroke Stroke Sister Pancreatic cancer Leukemia Brother Lung cancer Son Esophageal cancer Other No family history of adverse response to anesthesia Denies family history of Ovarian cancer Prostate cancer Breast cancer Colorectal cancer Social History Smoking Status: Never smoker Second Hand Exposure: No; Do You Dip or Chew Tobacco: No; Hx Alcohol Use: No Hx Substance Use: No Preferred Language: Slovenian Communication Ability: Effective Visual Impairment: No Limitations Hearing Ability: Hard of Hearing Board Member Required: No Beliefs That Will Affect Care: None marital status: Current Living Situation: Alone current occupational status: retired current occupation: retired from working [employer] Feels Safe at Home: Yes Childhood Exposure to Second-Hand Smoke: No Diet: regular Dental Care, Regularly: No Physical Activity Frequency: 3-4 Times per Week Seatbelt Use: always Sunscreen Use: No Assistive Devices: Denture - Upper, Denture - Lower, Glasses and Hearing Aid - Bilateral Review of Systems Review of Systems: Review of constitutional, cardiovascular, pulmonary, neurologic systems was unremarkable except for pertinent positive and negative findings discussed above Physical Exam Physical Exam: General: Elderly female in no acute distress Vital Signs: Reviewed HEENT: Moist mucous membranes; pupils equally round and reactive to light Neck: No remarkable jugular venous distention nor hepatojugular reflux Pulmonary: Symmetric chest wall excursion without restriction; clear to auscultation bilaterally Cardiovascular: Regular rate and rhythm with grade 2/6 murmur best heard in the right second intercostal space parasternally; no rubs or gallops; left radial pulse 2+ with brisk capillary refill; no notable lower extremity edema Neurologic: Cranial nerves II through XII grossly intact; no discernible focal weakness no paresthesia Results & Data Results & Data Vital Signs (Past 12 Hours) Vital Signs Temp Pulse Pulse Resp BP BP Pulse Ox 12/31/24 13:21 81 15 98 12/31/24 13:20 135/75 12/31/24 13:20 135/75 12/31/24 13:20 135/75 12/31/24 13:20 135/75 12/31/24 13:20 135/75 12/31/24 13:18 80 13 98 12/31/24 13:16 150/111 H 12/31/24 13:16 150/111 H 12/31/24 13:16 150/111 H 12/31/24 13:16 150/111 H 12/31/24 13:15 89 17 95 12/31/24 13:12 79 24 98 12/31/24 13:10 131/82 12/31/24 13:10 131/82 12/31/24 13:10 131/82 12/31/24 13:10 131/82 12/31/24 13:10 131/82 12/31/24 13:09 81 15 98 12/31/24 13:05 136/76 12/31/24 13:05 136/76 12/31/24 13:05 136/76 12/31/24 13:05 136/76 12/31/24 13:05 136/76 12/31/24 13:04 140/80 12/31/24 13:03 84 12/31/24 13:03 85 12/31/24 12:57 84 35 H 12/31/24 12:53 139/89 12/31/24 12:53 139/89 12/31/24 12:53 139/89 12/31/24 12:47 83 18 96 12/31/24 12:42 36.2 C L 81 18 152/80 H 95 12/31/24 12:41 36.9 C 83 18 140/80 96 12/31/24 12:41 12/31/24 12:41 O2 Del Method 12/31/24 13:21 12/31/24 13:20 12/31/24 13:20 12/31/24 13:20 12/31/24 13:20 12/31/24 13:20 12/31/24 13:18 12/31/24 13:16 12/31/24 13:16 12/31/24 13:16 12/31/24 13:16 12/31/24 13:15 12/31/24 13:12 12/31/24 13:10 12/31/24 13:10 12/31/24 13:10 12/31/24 13:10 12/31/24 13:10 12/31/24 13:09 12/31/24 13:05 12/31/24 13:05 12/31/24 13:05 12/31/24 13:05 12/31/24 13:05 12/31/24 13:04 12/31/24 13:03 12/31/24 13:03 12/31/24 12:57 12/31/24 12:53 12/31/24 12:53 12/31/24 12:53 12/31/24 12:47 Room Air 12/31/24 12:42 Room Air 12/31/24 12:41 Room Air 12/31/24 12:41 Room Air 12/31/24 12:41 Room Air Laboratory Results The majority the patient's laboratory assessment is still pending at this time however BMP and CBC are unremarkable Diagnostic Findings Portable chest film reviewed; large hiatal hernia noted but otherwise without acute findings ECG Additional Comments: Sinus rhythm with occasional PVCs; ST depression in leads III and aVL with ST elevation in V3 through V5 Code Status & VTE Plan Code Status Full code PG Care Time/CCT Total # of Minutes Spent Total Time Spent with Patient: Total time spent is greater than 50% in coordination of care (as documented) at patient's floor/unit and/or counseling patient: Coding Level of Care Code 15993 INT INP/OBS CARE 3/75MIN Diagnoses Type 1 myocardial infarction I21.9
[2024-12-31] MEDS ORDERED: NITROGLYCERIN SL 0.4 MG/TAB TAB SL PRN (14:10)
--- NOTE | 2024-12-31 14:21 | Cardiac Catheterization ---
Cardiac Cath Procedure Full Procedure Date December 31, 2024 Pre-Procedure Diagnosis Pre-Procedure Diagnosis: STEMI AUC Score AUC Score: 9 Post-Procedure Diagnosis Post-Procedure Diagnosis: Severe CAD and Successful PCI Procedure(s) Performed Procedure(s) Performed: Coronary Angiography, Left Heart Cath, LV Angiography and Drug Eluting Stent Station Tender Aly Parker MD Estimated Blood Loss Estimated Blood Loss: 5 Summary of Findings STEMI cath report Procedures performed 1. Retrograde insertion of a right radial sheath, 5/6 slender using Seldinger technique 2. Coronary angiography 3. Left heart cath and left ventriculography 4. Percutaneous intervention of the diagonal using a 2.0 mm x 15 mm Lincoln frontier drug-eluting stent in the proximal to mid diagonal 2 5. Percutaneous intervention of the LAD using using a 2.5 x 18 mm Lincoln 20 drug- eluting stent, postdilated to 3.0 mm 6. Moderate sedation Procedure: Patient was brought to the cardiac apposition lab in emergent condition, emergent consent was obtained The right radial site and the right groin site were prepped in normal fashion We then administered 1% lidocaine to the right radial site We then inserted a 5/6 slender sheath in the right radial artery using Seldinger technique We then advanced a JR4 catheter to the right coronary artery and selective arteriograms were obtained We then advanced an EBU 3.0 guide to the left Dallas system and selective arteriograms were obtained, the results are as below We then used a pigtail catheter to perform a left heart catheterization and LV gram, the results are as below Left heart catheterization: LVEDP: 28 mmHg Left ventriculogram: LV function of 55% Gradient across aortic valve: None noted Coronary angiography 1. Left main: Is a large size vessel which has diffuse luminal irregularities 2. Left anterior descending artery is a large size artery which has patent stent in the proximal to mid segment vessel with 10 to 20% stenosis, the mid to distal segment of the vessel has 80 to 90% eccentric thrombotic stenosis. Rest of the vessel has diffuse luminal irregularities. This is a type I LAD and does not supply the apex the first diagonal branch is a very small sized vessel with 80 to 90% ostial segment stenosis and nonamenable to PCI the second diagonal branch is a medium to large size vessel which has a diffuse 90% stenosis in the proximal to mid segment vessel, this is culprit vessel for STEMI. 3. Left circumflex: Is a large size artery which has 40 to 50% stenosis in the midsegment vessel. A large size first obtuse marginal branch has diffuse 50 to 60% mid segment stenosis There is a second small sized obtuse marginal branch which has a 80 to 90% mid segment stenosis, this is less than 2 mm and nonamenable to PCI 4. Right coronary artery: Is a large size artery which has diffuse 40 to 50% stenosis in the proximal to mid short vessel, the mid segment vessel has a chronic total occlusion, this is supplied by [id number] septal and epicardial collateral flow. Following the diagnostic portion of the coronary angiography were performed PCI of the LAD and diagonal We then advanced a run-through wire to the distal segment of the LAD We then advanced a run-through wire to the distal segment of the diagonal to We then advanced a 2.5 x 12 mm NC balloon performed predilatation of the lesion 18 sameer x 2 We then used a 1.5 mm x 12 mm compliant balloon and predilated the lesion in the diagonal at 20 sameer x 2 Lesion: Proximal to mid diagonal 2 Lesion length: 14 mm Pre-PCI stenosis: 90% Pre-PCI JACOBY flow: 3 Post-PCI stenosis: 0% Post-PCI stenosis: 3 Stent: We then advanced a 2.0 mm x 15 mm Darci frontier drug-eluting stent deployed this at 14 sameer in the proximal to mid diagonal Lesion: Mid LAD Lesion length: 14 mm Pre-PCI stenosis: 90% Pre-PCI JACOBY flow: 3 Post-PCI stenosis: 0% Post-PCI stenosis: 3 Stent: We then advanced 2.5 mm x 18 mm Lincoln frontier drug-eluting stent deployed this in the mid LAD to 16 sameer We then used a 3.0 x 12 mm NC balloon and postdilated the proximal segment of the stent to 12 sameer Following this a cine image of the LAD and diagonal showed good stent expansion, good apposition and no edge dissection or no distal wire perforation Following the completion of the procedure the wire and catheter were removed from the body . The patient was monitored, patient's heart rate, blood pressure, respiratory rate were monitored through the entire the procedure There were no complications were noted Patient was transferred to the ICU in stable condition Case was discussed with hospital medicine as well as general epic anesthesia analyst on- call Findings 1. Severe obstructive coronary artery disease of the LAD and diagonal, culprit vessel for the STEMI 2. Nonobstructive coronary artery disease of the left circumflex 3. Severe obstructive coronary disease of the RCA, chronic total occlusion 4. Normal LV function of 55% 5. Severely elevated LVEDP of 28 mmHg 6. Successful PCI of the diagonal2 with 1 drug-eluting stent 7. Successful percutaneous intervention of the LAD with monitoring stent Recommendations: We would recommend continuation of aspirin and Plavix for at least 1 year We would recommend addition of beta-isaías and statin for guideline directed medical therapy for his coronary artery disease We would recommend echocardiogram in a.m. Would recommend admission to ICU Hospital medicine to admit, cardiology to follow Would recommend outpatient cardiac rehabilitation Would recommend follow-up with primary epic anesthesia analyst in 4 weeks Can consider PCI of the RCA of the CHANGE MANAGEMENT LEAD if patient continues to have anginal symptoms despite maximally tolerated antianginal medical therapy Hemodynamics Rest Ao:: 148/88/89 Final Ao: 138/75/84 LV: 140/18/30 Recommendations Recommendations: None (As stated above) Radiation Exposure (mGy) 1096 mGy Contrast (mls) 120 Procedural Complication(s) None I attest to the content of the Intraoperative Record and any orders documented therein. Any exceptions are noted below. 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
--- NOTE | 2024-12-31 14:21 | XRay Report ---
XR chest 1V portable CLINICAL HISTORY: Chest pain, nonspecific COMPARISON STUDY: Chest radiograph October 13, 2021. Chest CT May 23, 2014. FINDINGS: No pneumothorax or pleural effusion is present. Linear bibasilar densities favor atelectasi s. A large hiatal hernia is present. Moderate cardiomegaly is noted. There is no evidence for pulmona ry edema. IMPRESSION: 1. No acute cardiopulmonary findings. 2. Cardiomegaly. 3. Large hiatal hernia. ACT 112: Negative or not required by law. Electronically signed by: Joselito Vega M.D. 12/31/2024 2:20 PM
[2024-12-31] MEDS: HEPARIN (PORCINE) 1000 UNIT/ML 10 ML (CATH LAB USE ONLY) ONE (14:42)
[2024-12-31] MEDS: MIDAZOLAM HCL 1 MG/ML 2ML VIAL ONE (14:43)
[2024-12-31] MEDS: OPTIRAY 350 ONE (14:43)
[2024-12-31] MEDS: niCARdipine 2,000 MCG/20 ML SYR ONE (14:44)
[2024-12-31] MEDS: NITROGLYCERIN/D5W 100MCG/ML 20ML SYR ONE (14:44)
--- NOTE | 2024-12-31 15:40 | Critical Care Consultation ---
Date of Consultation December 31, 2024 Assessment & Plan (1) ST elevation (STEMI) myocardial infarction: (2) Hypertension: (3) Hyperlipidemia: (4) Hypothyroidism: (5) CAD (coronary artery disease): Plan Patient is an 84-year-old female with a history of known CAD status post PCI to LAD in 2016, hypertension, hyperlipidemia (statin intolerant). The patient presented to the hospital with symptoms concerning for heart attack. Was found to have a STEMI on EKG. Taken to the Telephone Engineer. Had 1 CHRISTINE to diagonal 2 and 2 CHRISTINE to mid LAD. EF was preserved at 55%. The patient was transferred to the ICU for monitoring after PCI. Reason Critically Ill: STEMI status post PCI 12/31/2024 Hypertension Hyperlipidemia Hypothyroidism Neuro: Awake and alert. No concerns at this time. Cardiac: History of underlying CAD status post PCI to LAD in 2016 Underlying hypertension and hyperlipidemia (statin intolerant) STEMI on admission, taken to Telephone Engineer with drug-eluting stent to diagonal 2 and to mid LAD. Vital signs are stable. No arrhythmias. Blood pressure is acceptable. EF was preserved at 55%. Will continue aspirin and Plavix. Continue metoprolol. Obtain A1c. Obtain lipid profile. Continue to monitor on telemetry. Respiratory: No acute concerns at this time. On room air. Out of bed is much as possible, GI: Will start cardiac diet. LFTs acceptable. Can add MiraLAX if needed for bowel regimen. RENAL/LYTES: Renal function electrolytes acceptable. Repeat chemistry in the morning. Monitor urine output. : Monitor strict I's and O's. ENDO: TSH acceptable. Will check A1c. Blood glucose acceptable. HEME: CBC without significant anemia or leukocytosis. Repeat CBC in AM. ID: No evidence of acute infection at this time. No indication for antibiotics. Feeding: Cardiac diet Fluids: None Analgesia: None Activity: Up with assist Thromboprophylaxis: Ambulate, if remains in bed Place SCDs Ulcer prophylaxis: Has diet, not indicated Glycemic control: Blood glucose acceptable, sliding scale insulin not indicated yet Bowels: Add MiraLAX if needed for bowel regimen. Indwelling catheters: Peripheral IV Antibiotics: None Plan: Patient will be admitted to the ICU for monitoring status post PCI. Cardiology is consulted. EF is preserved. No longer having any chest pain or shortness of breath. On aspirin and clopidogrel. Metoprolol. Blood pressure acceptable. No evidence of shock. No arrhythmias. Will continue to monitor on telemetry. I have personally spent 65 minutes of critical care time in the direct management of this patient. This is a life/limb threatening event. This includes time spent evaluating patient, direct bedside care, chart review, placing orders, interpretation of diagnostic studies, discussion with consultants, patient, and family members, as well as other required patient management activi ties. This time is exclusive of all separately billable procedures, and teaching time and separate from and in addition to any other critical care service time. History of Present Illness Reason for Consultation: STEMI status post PCI Requesting Physician: George Jim DO Attending Physician: George Jim DO History of Present Illness Patient is a pleasant 84-year-old female with a past medical history significant for coronary artery disease status post PCI, hypertension, hyperlipidemia, hiatal hernia, hyperlipidemia with statin intolerance. The patient presented to the hospital on 12/31/2024 with persistent substernal chest discomfort. The pain began on 12/29/2024 but initially resolved with rest. She also endorsed some dyspnea. EKG showed evidence of STEMI. The patient was bolused with heparin and code heart was called. Troponin was elevated. The patient was taken emergently to the Telephone Engineer, was found to have significant disease in the mid LAD and mid diagonal 2, received CHRISTINE to mid diagonal as well as CHRISTINE x 2 to mid LAD. EF was preserved at 55%. The patient tolerated the procedure well. She was brought to ICU for monitoring post PCI. On arrival to the ICU the patient is normotensive. She is not having any chest pain or shortness of breath at this time. Right radial was accessed, there is a small hematoma and some swelling. She has a little bit of pain in her right hand but otherwise no other complaints at this time. Lungs are clear to auscultation. Heart is regular rate and rhythm without any murmurs appreciated. No significant lower extremity edema. Family is at bedside. Patient reports that she is a full code. Allergies Allergy/AdvReac Type Severity Reaction Status Date / Time Iodinated Contrast Media Allergy Intermediate ITCHY RASH Verified 07/14/24 11:28 on arms Oaffmwy-MRS-VzW Reductase Allergy Intermediate MUSCLE Verified 07/14/24 11:28 Inhibitor ACHES, [Fuobwzv-Wdy-Slz Reductase PAINS Inhibitor] ezetimibe [From Zetia] Allergy Mild joints Verified 07/14/24 11:28 aches clarithromycin AdvReac Intermediate NAUSEA Verified 07/14/24 11:28 Home Medications Medication Instructions Recorded Confirmed Type coenzyme Q10 100 mg capsule 100 mg PO HS 12/12/17 12/31/24 History (CoQ-10) losartan 25 mg tablet 25 mg PO QDL 12/12/17 12/31/24 History cholecalciferol (vitamin D3) 50 2,000 unit PO QAM 04/28/19 12/31/24 History mcg (2,000 unit) capsule (Vitamin D3) [id number] 1,000 mg PO DAILY 01/28/21 12/31/24 History ascorbate calcium (vitamin C) 500 500 mg PO DAILY 08/02/23 12/31/24 History mg tablet mecobalamin (vitamin B12) 500 mcg 500 mcg PO DAILY 08/02/23 12/31/24 History chewable tablet tangy tangerine 0 mg PO DAILY 03/08/24 12/31/24 History clopidogrel 75 mg tablet (Plavix) 75 mg PO DAILY #90 tabs 10/25/24 12/31/24 Rx levothyroxine 50 mcg tablet 50 mcg PO DAILY #90 tabs 12/18/24 12/31/24 Rx MegaRed Doerun-3 Krill Oil 0 mg PO DAILY 12/31/24 12/31/24 History ipratropium bromide 21 mcg (0.03 0 spray intranasal BID 12/31/24 12/31/24 History %) nasal spray Patient History Medical History History of non-ST elevation myocardial infarction (NSTEMI) (2015) TIA (transient ischemic attack) amaurosis fugax 2021 - switched from aspirin to Plavix History of esophageal dilatation Surgical History History of heart artery stent (~2015) @ [facility] [place], 1 stent placed History of hemorrhoidectomy History of esophagogastroduodenoscopy (EGD) Hx of cataract surgery bilt History of colonoscopy History of hysterectomy History of endoscopic sinus surgery x2 History of cardiac cath 2015 @ [facility] [place] with stent placement Family History Father , age 58 of an [place] Myocardial infarction Brother Myocardial infarction Stroke Mother , age 84 of a stroke Stroke Sister Pancreatic cancer Leukemia Brother Lung cancer Son Esophageal cancer Other No family history of adverse response to anesthesia Denies family history of Ovarian cancer Prostate cancer Breast cancer Colorectal cancer Social History Smoking Status: Never smoker Second Hand Exposure: No; Do You Dip or Chew Tobacco: No; Tobacco Cessation Education Requested by Patient: No Hx Alcohol Use: No Hx Substance Use: No Preferred Language: Sinhala Communication Ability: Effective Visual Impairment: No Limitations Hearing Ability: Hard of Hearing Charge Attendant Required: No Beliefs That Will Affect Care: None marital status: Current Living Situation: Alone current occupational status: retired 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 Negative except as noted in HPI. Physical Exam Physical Exam: Physical examination: General: Well-appearing, well-nourished and not in acute distress. HEENT: Normocephalic, atraumatic. Extraocular movements intact. Sclera are nonicteric. No JVD appreciated. Skin: Warm and dry. No rashes appreciated. No jaundice appreciated. Small hematoma of the right radial. Cardiovascular: Heart is a regular rate and rhythm, no murmurs appreciated on my exam. No significant lower extremity edema. Lungs: Clear bilaterally, no wheezing appreciated. No crackles. Nontachypneic. Resting comfortably on room air. Abdomen: Nondistended, nontender to palpation. No masses appreciated. Musculoskeletal: Normal muscle mass and tone. No gross joint deformity abnor malities. No effusions appreciated. Neurologic: Awake and alert, oriented. CN II through XII are grossly intact. Speech is fluent. Nonfocal exam. Psychiatric: Appropriate cooperative during my exam. Results & Data Results & Data Vital Signs (Past 12 Hours) Vital Signs Temp Pulse Pulse Resp BP BP Pulse Ox 12/31/24 15:12 71 17 99 12/31/24 15:00 73 21 101/80 98 12/31/24 14:57 132/78 12/31/24 14:57 73 20 99 12/31/24 14:51 69 23 98 12/31/24 14:48 87 27 H 84 L 12/31/24 13:21 81 15 98 12/31/24 13:20 135/75 12/31/24 13:20 135/75 12/31/24 13:20 135/75 12/31/24 13:20 135/75 12/31/24 13:20 135/75 12/31/24 13:18 80 13 98 12/31/24 13:16 150/111 H 12/31/24 13:16 150/111 H 12/31/24 13:16 150/111 H 12/31/24 13:16 150/111 H 12/31/24 13:15 89 17 95 12/31/24 13:12 79 24 98 12/31/24 13:10 131/82 12/31/24 13:10 131/82 12/31/24 13:10 131/82 12/31/24 13:10 131/82 12/31/24 13:10 131/82 12/31/24 13:09 81 15 98 12/31/24 13:05 136/76 12/31/24 13:05 136/76 12/31/24 13:05 136/76 12/31/24 13:05 136/76 12/31/24 13:05 136/76 12/31/24 13:04 140/80 12/31/24 13:03 84 12/31/24 13:03 85 12/31/24 12:57 84 35 H 12/31/24 12:53 139/89 12/31/24 12:53 139/89 12/31/24 12:53 139/89 12/31/24 12:47 83 18 96 12/31/24 12:42 36.2 C L 81 18 152/80 H 95 12/31/24 12:41 36.9 C 83 18 140/80 96 12/31/24 12:41 12/31/24 12:41 O2 Del Method 12/31/24 15:12 12/31/24 15:00 Room Air 12/31/24 14:57 12/31/24 14:57 12/31/24 14:51 12/31/24 14:48 12/31/24 13:21 12/31/24 13:20 12/31/24 13:20 12/31/24 13:20 12/31/24 13:20 12/31/24 13:20 12/31/24 13:18 12/31/24 13:16 12/31/24 13:16 12/31/24 13:16 12/31/24 13:16 12/31/24 13:15 12/31/24 13:12 12/31/24 13:10 12/31/24 13:10 12/31/24 13:10 12/31/24 13:10 12/31/24 13:10 12/31/24 13:09 12/31/24 13:05 12/31/24 13:05 12/31/24 13:05 12/31/24 13:05 12/31/24 13:05 12/31/24 13:04 12/31/24 13:03 12/31/24 13:03 12/31/24 12:57 12/31/24 12:53 12/31/24 12:53 12/31/24 12:53 12/31/24 12:47 Room Air 12/31/24 12:42 Room Air 12/31/24 12:41 Room Air 12/31/24 12:41 Room Air 12/31/24 12:41 Room Air Coding Level of Care Code 67589 CRITICAL CARE 1ST 30-74M Diagnoses ST elevation (STEMI) myocardial infarction I21.3 Involved coronary artery: unspecified coronary artery Essential hypertension I10 Hypertension type: essential hypertension Hyperlipidemia, unspecified hyperlipidemia type E78.5 Hyperlipidemia type: unspecified Hypothyroidism, unspecified type E03.9 Hypothyroidism type: unspecified Coronary artery disease involving [place] coronary artery of [place] heart, angina presence unspecified I25.10 Associated angina: angina presence unspecified Coronary Disease-Associated Artery/Lesion type: [place] artery [place] vs. transplanted heart: [place] heart (1) ST elevation (STEMI) myocardial infarction Involved coronary artery: unspecified coronary artery Qualified Code(s): I21.3 - ST elevation (STEMI) myocardial infarction of unspecified site (2) Hypertension Hypertension type: essential hypertension Qualified Code(s): I10 - Essential (primary) hypertension (3) Hyperlipidemia Hyperlipidemia type: unspecified Qualified Code(s): E78.5 - Hyperlipidemia, unspecified (4) Hypothyroidism Hypothyroidism type: unspecified Qualified Code(s): E03.9 - Hypothyroidism, unspecified (5) CAD (coronary artery disease) Associated angina: angina presence unspecified Coronary Disease-Associated Artery/Lesion type: [place] artery [place] vs. transplanted heart: [place] heart Qualified Code(s): I25.10 - Atherosclerotic heart disease of [place] coronary artery without angina pectoris
[2024-12-31] MEDS: ONDANSETRON INJ 2 MG/ML 2 ML VIAL ONE ×2 (18:49→22:37)
[2024-12-31 19:14] LABS: Hematocrit (blood only) 40.5 % (37.0-47.0); Hemoglobin 13.2 g/dl (12.0-16.0)
[2024-12-31] MEDS: ACETAMINOPHEN 325 MG TAB PO PRN (19:50)
[2024-12-31] MEDS: METOPROLOL TARTRATE 25 MG TAB PO SCH (19:51)
[2024-12-31] MEDS: ONDANSETRON INJ 2 MG/ML 2 ML VIAL IV PRN (22:36)
[2025-01-01 04:30] LABS: Hematocrit (blood only) 42.6 % (37.0-47.0); Hemoglobin 13.5 g/dl (12.0-16.0); Mean Corpuscular Hemoglobin 26.5 pg (25.0-34.0); Mean Corpuscular Volume 83.5 fL (80.0-100.0); Platelet Count 272 K/uL (130-400); RDW Standard Deviation 42.0 fL (36.4-46.3); Red Blood Count 5.10 M/uL (4.20-5.40); White Blood Count 8.20 K/ul (4.8-10.8)
[2025-01-01] MEDS: ACETAMINOPHEN 1,000 MG/100 ML VIAL IV PRN (05:25)
[2025-01-01 05:28] LABS: Appearance Urine Clear (Clear); Bacteria Urine Automated None Seen (None Seen); Cast Urine Automated 0-2 /lpf (0-2); Epithelial Cell Urine Auto 0-2 /hpf (0-2); Glucose Urine UA Negative (Negative); WBC Urine Automated 0-5 /hpf (0-5)
[2025-01-01 05:34] LABS: Albumin Level 4.0 gm/dl (3.4-5.0); Anion Gap 12.0 (3-11); Bilirubin,Total 0.7 mg/dl (0.2-1.0); Calcium 9.5 mg/dl (8.6-10.3); Carbon Dioxide 26.0 mmol/L (21-32); Chloride 101.0 mmol/L (98-107); Potassium 4.2 mmol/L (3.5-5.1); Sodium 139.0 mmol/L (136-145)
[2025-01-01 05:40] LABS: Alanine Aminotransferase 14.0 U/L (7-52); Albumin Globulin Ratio 1.1 (0.9-2); Alkaline Phosphatase 66.0 U/L (34-104); Blood Urea Nitrogen 19.0 mg/dl (6-23); Cholesterol 237.0 mg/dl (0-200); Creatinine Clr Calc Pharmacy 30.0 ml/min; Globulin 3.5 gm/dl (2.5-4.0); Glucose 114.0 mg/dl (70-99(Fasting)); HDL Cholesterol 53.0 mg/dl; Total Protein 7.5 gm/dl (6.0-8.3); Triglycerides 82.0 mg/dl (0-150)
[2025-01-01] MEDS ORDERED: STAT IV Infusion **Titration per Protocol STA (05:46)
[2025-01-01] MEDS: LEVOTHYROXINE SODIUM 50 MCG TABLET PO SCH (06:00)
[2025-01-01] MEDS: dexMEDEtomidine 200 MCG/50 ML BAG IV SCH (06:01)
--- NOTE | 2025-01-01 07:04 | Hospitalist Progress Note ---
Date of Service January 01, 2025 Assessment & Plan (1) Type 1 myocardial infarction: (2) Occlusive coronary artery disease: (3) Acute kidney injury: (4) Acute hyperactive delirium due to another medical condition: Plan In summary this is an 84-year-old female who presented with chest pain, found to have EKG changes concerning for an acute myocardial infarction #Type 1 Myocardial Infarction // Occlusive CAD // Hyperlipidemia intolerant of statin therapy // Essential hypertension Initial onset began on the day of presentation and has waxed and waned since then; is notably worse with activity; this is not similar to her previous heart attack, noting that her prior episode was with far less discomfort; established risk factors include hypertension, hyperlipidemia, statin intolerance, GENEVIEVE; initial EKG concerning for acute anterior versus lateral infarct; required PCI with CHRISTINE to LAD and diagonal on 12/31, procedure performed without complication -Maintain continuous safety trainer -Nursing to contact attending if patient develops recurrent or new anginal equivalent -Continue ASA 81 mg p.o. daily -Continue Clopidogrel 75 mg p.o. daily -TTE pending 01/01 -Cardiology and Crticial Care consulted #Acute Kidney Injury Baseline creatinine measures typically 1.00; measure on 1.37; currently nonoliguric without recent hypotensive.; No significant electrolyte nor acid- base derangements; suspect this is consequential of a prerenal injury due to poor forward perfusion in the setting of their presenting myocardial infarction, start fluid resuscitation as below and reassess on 01/02; alternatively the creatinine rise could be related to the patient's troponin rise rather than a proper acute kidney injury, reassessment and conservative treatment at this time - Nursing to notify attending of urine output below goal of 0.5 mL/kg/h - Continue intake and output measures every shift - Follow daily renal function panel - Urinalysis was obtained, bland #Acute hyperactive delirium due to critical illness Overnight documentation of increased agitation and confusion; suspect this is likely due to the patient's critical illness, multiple location changes during their initial presentation, and likely some degree of baseline mild cognitive impairment given their history of vascular disease; would strongly recommend against benzodiazepines and anticholinergic agents as this can precipitate worsening delirium especially in the elderly population; unlikely be related to the patient's acute kidney injury given the absence of electrolyte abnormalities and without focal deficits, the utility of a head CT is relatively little Focus on nonpharmacologic measures and avoiding restraints is much as possible to reduce further spiral to delirium Minimize monitoring as much as possible, ideally will be transferred out of the ICU on 01/01 if deemed stable If necessary, would recommend low-dose atypical antipsychotics if nonpharmacologic measures ultimately fail - Remains on dexmedetomidine gtt with active wean underway Admission and Anticipated Discharge Date Admission Date: December 31, 2024 Subjective Ms. Schmid is an 84-year-old female whose active medical conditions include hypertension, hyperlipidemia, coronary atherosclerotic disease with previous myocardial infarction, large hiatal hernia among other chronic medical conditions who presented to the [facility] on 12/31 due to persistent substernal chest discomfort. Her initial chest pain began on 12/29 during activity, which quickly resolved. Beginning on the day of presentation, she was performing her usual daily activities when she had sudden recurrence of her chest pain similar to what she had experienced on 12/29 and has waxed and waned since this morning. She denies any associated jaw pain or shoulder pain. She does endorse some dyspnea with exertion but denies any resting shortness of breath, orthopnea, platypnea, pleuritic chest pain, palpitations, nausea, vomiting. She states this is significantly different from her previous heart attack which was far less painful than her current circumstance. Overnight the patient was intermittently confused, agitated, and had difficulty following instructions from staff; this morning she remains quite sedated, though responds to noxious and loud verbal stimuli Review of Systems Review of Systems: Unable to obtain review of systems due to pharmacologic sedation Physical Exam Physical Exam: General: Elderly female, sedated Vital Signs: Reviewed; Alcantara temperature probe measuring 38 C, axillary probe 37 C HEENT: Moist mucous membranes; pupils equally round and reactive to light, not able to participate for extraocular motion exam Neck: No remarkable jugular venous distention nor hepatojugular reflux Pulmonary: Symmetric chest wall excursion without restriction; clear to auscultation bilaterally Cardiovascular: Regular rate and rhythm with grade 2/6 murmur best heard in the right second intercostal space parasternally; no rubs or gallops; right radial pulse 2+ with slow capillary refill; no notable lower extremity edema Genitourinary: Alcantara catheter in place with approximately 100 mL of pale urine without sediment Neurologic: unable to perform full neurologic exam given sedation; withdraws extremities to noxious stimuli; arouses slightly to calling her name loudly Skin: large ecchymosis involving the right volar forearm in the area of access from [facility] on 12/31 Results & Data Results & Data Vital Signs (Past 12 Hours) Vital Signs Temp Pulse Resp BP Pulse Ox 01/01/25 03:27 82 01/01/25 03:00 88 23 96 01/01/25 02:00 82 19 95 01/01/25 01:00 88 17 142/80 H 94 01/01/25 00:00 79 22 132/75 95 12/31/24 23:39 87 24 124/89 93 12/31/24 23:31 165/95 H 12/31/24 23:30 90 28 H 93 12/31/24 23:00 82 23 94 12/31/24 23:00 138/86 12/31/24 23:00 138/86 12/31/24 23:00 138/86 12/31/24 23:00 138/86 12/31/24 23:00 138/86 12/31/24 22:31 37.1 C 12/31/24 22:30 149/85 H 12/31/24 22:30 149/85 H 12/31/24 22:30 86 24 149/85 H 95 12/31/24 22:00 83 20 130/82 95 12/31/24 21:30 79 16 129/78 96 12/31/24 21:00 75 17 128/70 97 12/31/24 20:30 79 20 122/89 96 12/31/24 20:24 36.3 C L 12/31/24 20:15 94 H 19 114/69 94 12/31/24 20:00 89 25 H 96 12/31/24 19:33 91 H 21 97 12/31/24 19:31 126/58 L 12/31/24 19:31 126/58 L 12/31/24 19:31 126/58 L 12/31/24 19:31 126/58 L 12/31/24 19:31 126/58 L 12/31/24 19:30 91 H 25 H 94 12/31/24 19:00 84 20 96 12/31/24 19:00 127/82 Laboratory Results Creatinine 1.37 Troponin peak 3609 PG Care Time/CCT Total # of Minutes Spent Total Time Spent with Patient: Total time spent is greater than 50% in coordination of care (as documented) at patient's floor/unit and/or counseling patient: Coding Level of Care Code 91029 SUB INP/OBS CARE MIN Diagnoses Type 1 myocardial infarction I21.9 Occlusive coronary artery disease I25.10 Acute kidney injury N17.9 Acute hyperactive delirium due to another medical condition F05
[2025-01-01 07:19] LABS: Hemoglobin A1C 5.7 % (4.5-5.6)
[2025-01-01] MEDS: LORazepam Inj 1 MG in SYRINGE 0.5 ML IV STA (08:57)
[2025-01-01] MEDS: LACTATED RINGER'S 1,000 ML IV SCH (12:24)
--- NOTE | 2025-01-01 12:53 | Critical Care Progress Note ---
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 Received Zyprexa, Ativan, and Precedex drip. Occasional agitated delirium. Will monitor. Will consider Precedex drip to make sure that other medications are not persisting long in her system. Cardiac: History of underlying CAD status post PCI to LAD in 2016 Underlying hypertension and hyperlipidemia (statin intolerant) STEMI on admission, taken to [facility] with drug-eluting stent to diagonal and to mid LAD. Vital signs are stable. No arrhythmias. Blood pressure is acceptable. EF was preserved at 55%. Will continue aspirin and Plavix. Continue metoprolol. Continue to monitor on telemetry. Respiratory: No acute concerns at this time. On room air. Out of bed is much as possible, when confusion improves. GI: Cardiac diet. LFTs acceptable. Can add MiraLAX if needed for bowel regimen. RENAL/LYTES: No issues. Repeat chemistry in the morning. Monitor urine output. : Will discontinue Alcantara catheter. ENDO: TSH acceptable. HEME: CBC without significant anemia or leukocytosis. Repeat CBC in AM. ID: No evidence of acute infection at this time. No indication for antibiotics. Feeding: Cardiac diet Fluids: None Analgesia: None Activity: Up with assist Thromboprophylaxis: Ambulate, if remains in bed Place SCDs Ulcer prophylaxis: Has diet, not indicated Glycemic control: Blood glucose acceptable, sliding scale insulin not indicated yet Bowels: Add MiraLAX if needed for bowel regimen. Indwelling catheters: Peripheral IV Antibiotics: None Admission and Anticipated Discharge Date Admission Date: December 31, 2024 Subjective The patient is a very pleasant 84-year-old female who presented to the ED with persistent substernal chest pain. Her symptoms began during activity two days prior, quickly resolved, but recurred on the day of presentation while she was performing her usual daily activities. The chest pain waxed and waned throughout the morning and became constant for some time prior to arrival. She described the pain as similar to her previous myocardial infarction, but notably more severe. She also admitted to some exertional dyspnea. An EKG obtained in the ED demonstrated ST elevations in the high lateral leads with reciprocal depressions, consistent with an acute STEMI. Troponin was markedly elevated. She was emergently taken to the [facility], where coronary angiography revealed severe obstructive CAD involving the LAD and diagonal branches, with successful PCI performed to both vessels using drug-eluting stents. LV function was preserved at 55%, but LVEDP was elevated at 28 mmHg. Following PCI, she remained hemodynamically stable, without recurrent chest pain or shortness of breath. She developed a small hematoma and mild pain at the right radial access site but had no other complaints. Overnight, she experienced intermittent confusion and agitation, suspected on the basis of critical illness and environmental changes, with no evidence of infection, significant metabolic derangement, or focal neurological findings. Her creatinine increased from baseline, but she remained nonoliguric and without electrolyte abnormalities. Her past medical history included CAD status post prior PCI to the LAD in 2015, hypertension, hyperlipidemia (statin intolerant), hypothyroidism, and a large hiatal hernia. Note from 01/01/2025: This morning the patient was on Precedex drip, and when the drip was stopped she was only responsive to painful stimuli, and the only response would be that she would get combative. This was suspected on the basis of Zyprexa and Ativan given around 5 am for agitation. There was concern that she was not opening her left eye as well as her right eye. I ordered a CT of brain to make sure that the patient did not sustain a CVA or brain hemorrhage following PCI. I was planning on giving Flumazenil, but after coming back from CT the patient became more responsive and started talking to the nurses clearly and got up and wanted to walk to the bathroom. She mostly asked for water to drink. Initially she told the bedside nurse that she didn't want to talk to her but wanted her to get her water. When I tried to talk to her she only talked to me when she would tell me to leave her arm alone while I was trying to keep her from walking away from the bed. Eventually, the patient decided to go back to bed. Review of Systems Review of Systems: All systems reviewed & are unremarkable except as noted in HPI & below Physical Exam Physical Exam: General: In no acute distress, breathing room-air. Skin: Warm and dry to touch. Large bruise over the right forearm. Eyes: Anicteric.Noconjunctival hyperemia or exudates.No periorbital edema. ENT: Unable to examine. Neck: No palpable masses or adenopathy. Respiratory: Diffusely decreased breath sounds, no wheezing or crackles. No use of accessory muscles and no prolonged exhalation. Cardiac: Distant sounds, regular rhythm, no murmurs, no gallops, no rubs; could not appreciate JV pulse elevation. GI: Soft, nontender. Extremities No clubbing,no cyanosis,no edema. Right Radial-Artery hematoma. Neuro: No gross motor deficits. No obvious asymmetry. Pupils equal and responsive to light symmetrically. No facial-droop. Speech is clear. Results & Data Results & Data Vital Signs (Past 12 Hours) Vital Signs Temp Pulse Resp BP Pulse Ox 01/01/25 08:00 37.6 C H 01/01/25 03:27 82 01/01/25 03:00 88 23 96 01/01/25 02:00 82 19 95 01/01/25 01:00 88 17 142/80 H 94 Laboratory Results 01/01/25 Unknown Urine Culture - Pending Urine,Indwelling Cath 01/01/25 01/01/25 01/01/25 Unknown 04:16 00:56 WBC 8.20 RBC 5.10 Hgb 13.5 POC Hgb Hct 42.6 POC Hct MCV 83.5 MCH 26.5 MCHC 31.7 L RDW Std Deviation 42.0 RDW Coeff of Tessie 13.8 Plt Count 272 MPV 9.9 Immature Gran % (Auto) Neut % (Auto) Lymph % (Auto) [place] % (Auto) Eos % (Auto) Baso % (Auto) Neut # (Auto) Lymph # (Auto) [place] # (Auto) Eos # (Auto) Baso # (Auto) Immature Gran # (Auto) Activ Coag Time Kaolin POC Sodium Sodium 139 POC Potassium Potassium 4.2 POC Chloride Chloride 101 Carbon Dioxide 26 POC Total CO2 Anion Gap 12 H POC Anion Gap POC BUN BUN 19 Creatinine 1.37 H POC Creatinine Est Cr Clr Drug Dosing 30.0 eGFR 37.60 BUN/Creatinine Ratio 13.9 Glucose 114 H POC Glucose 128 H POC Glucose (other) Estimat Average Glucose 117 Hemoglobin A1c 5.7 H Calcium 9.5 POC Ioniz Calcium Lisset Total Bilirubin 0.7 AST 43 H ALT 14 Alkaline Phosphatase 66 Troponin I High Sens 3579.7 H* Total Protein 7.5 Albumin 4.0 Globulin 3.5 Albumin/Globulin Ratio 1.1 Triglycerides 82 Cholesterol 237 H LDL Cholesterol, Calc 168 VLDL Cholesterol, Calc 16 HDL Cholesterol 53 Cholesterol/HDL Ratio 4.5 Lipase Urine Color Yellow Urine Appearance Clear Urine pH 8.0 H Ur Specific [place] 1.026 Urine Protein Negative Urine Glucose (UA) Negative Urine Ketones Trace H Urine Blood Trace H Urine Nitrite Negative Urine Bilirubin Negative Urine Urobilinogen Negative Ur Leukocyte Esterase Negative Urine WBC (Auto) 0-5 Urine RBC (Auto) 6-10 H U Hyaline Cast (Auto) 0-2 U Epithel Cells (Auto) 0-2 Urine Bacteria (Auto) None Seen Nasal Screen MRSA (PCR) 12/31/24 12/31/24 12/31/24 Unknown 20:05 18:50 WBC RBC Hgb 13.2 POC Hgb Hct 40.5 POC Hct MCV MCH MCHC RDW Std Deviation RDW Coeff of Tessie Plt Count MPV Immature Gran % (Auto) Neut % (Auto) Lymph % (Auto) [place] % (Auto) Eos % (Auto) Baso % (Auto) Neut # (Auto) Lymph # (Auto) [place] # (Auto) Eos # (Auto) Baso # (Auto) Immature Gran # (Auto) Activ Coag Time Kaolin POC Sodium Sodium POC Potassium Potassium POC Chloride Chloride Carbon Dioxide POC Total CO2 Anion Gap POC Anion Gap POC BUN BUN Creatinine POC Creatinine Est Cr Clr Drug Dosing eGFR BUN/Creatinine Ratio Glucose POC Glucose POC Glucose (other) Estimat Average Glucose Hemoglobin A1c Calcium POC Ioniz Calcium Lisset Total Bilirubin AST ALT Alkaline Phosphatase Troponin I High Sens 3690.6 H* D Total Protein Albumin Globulin Albumin/Globulin Ratio Triglycerides Cholesterol LDL Cholesterol, Calc VLDL Cholesterol, Calc HDL Cholesterol Cholesterol/HDL Ratio Lipase Urine Color Urine Appearance Urine pH Ur Specific [place] Urine Protein Urine Glucose (UA) Urine Ketones Urine Blood Urine Nitrite Urine Bilirubin Urine Urobilinogen Ur Leukocyte Esterase Urine WBC (Auto) Urine RBC (Auto) U Hyaline Cast (Auto) U Epithel Cells (Auto) Urine Bacteria (Auto) Nasal Screen MRSA (PCR) Negative 12/31/24 12/31/24 12/31/24 15:14 13:56 13:00 WBC RBC Hgb POC Hgb 13.3 Hct POC Hct 39 MCV MCH MCHC RDW Std Deviation RDW Coeff of Tessie Plt Count MPV Immature Gran % (Auto) Neut % (Auto) Lymph % (Auto) [place] % (Auto) Eos % (Auto) Baso % (Auto) Neut # (Auto) Lymph # (Auto) [place] # (Auto) Eos # (Auto) Baso # (Auto) Immature Gran # (Auto) Activ Coag Time Kaolin 193 H POC Sodium 139 Sodium POC Potassium 3.6 Potassium POC Chloride 101 Chloride Carbon Dioxide POC Total CO2 26 Anion Gap POC Anion Gap 16.0 POC BUN 15 BUN Creatinine POC Creatinine 1.3 Est Cr Clr Drug Dosing eGFR BUN/Creatinine Ratio Glucose POC Glucose POC Glucose (other) 108 H Estimat Average Glucose Hemoglobin A1c Calcium POC Ioniz Calcium Lisset 1.16 Total Bilirubin AST ALT Alkaline Phosphatase Troponin I High Sens 1457.3 H* D Total Protein Albumin Globulin Albumin/Globulin Ratio Triglycerides Cholesterol LDL Cholesterol, Calc VLDL Cholesterol, Calc HDL Cholesterol Cholesterol/HDL Ratio Lipase Urine Color Urine Appearance Urine pH Ur Specific [place] Urine Protein Urine Glucose (UA) Urine Ketones Urine Blood Urine Nitrite Urine Bilirubin Urine Urobilinogen Ur Leukocyte Esterase Urine WBC (Auto) Urine RBC (Auto) U Hyaline Cast (Auto) U Epithel Cells (Auto) Urine Bacteria (Auto) Nasal Screen MRSA (PCR) 12/31/24 12:56 WBC 5.36 RBC 4.64 Hgb 12.5 POC Hgb Hct 38.6 POC Hct MCV 83.2 MCH 26.9 MCHC 32.4 RDW Std Deviation 41.7 RDW Coeff of Tessie 13.7 Plt Count 284 MPV 10.0 Immature Gran % (Auto) 0.2 Neut % (Auto) 57.4 Lymph % (Auto) 27.8 [place] % (Auto) 9.5 Eos % (Auto) 3.2 Baso % (Auto) 1.9 Neut # (Auto) 3.08 Lymph # (Auto) 1.49 [place] # (Auto) 0.51 Eos # (Auto) 0.17 Baso # (Auto) 0.10 Immature Gran # (Auto) 0.01 Activ Coag Time Kaolin POC Sodium Sodium 140 POC Potassium Potassium 3.7 POC Chloride Chloride 103 Carbon Dioxide 29 POC Total CO2 Anion Gap 8 POC Anion Gap POC BUN BUN 16 Creatinine 1.20 POC Creatinine Est Cr Clr Drug Dosing 34.3 eGFR 44.08 BUN/Creatinine Ratio 13.3 Glucose 109 H POC Glucose POC Glucose (other) Estimat Average Glucose Hemoglobin A1c Calcium 9.6 POC Ioniz Calcium Lisset Total Bilirubin 0.7 AST 28 ALT 14 Alkaline Phosphatase 63 Troponin I High Sens 1161.1 H* Total Protein 7.2 Albumin 3.9 Globulin 3.3 Albumin/Globulin Ratio 1.2 Triglycerides Cholesterol LDL Cholesterol, Calc VLDL Cholesterol, Calc HDL Cholesterol Cholesterol/HDL Ratio Lipase 31 Urine Color Urine Appearance Urine pH Ur Specific [place] Urine Protein Urine Glucose (UA) Urine Ketones Urine Blood Urine Nitrite Urine Bilirubin Urine Urobilinogen Ur Leukocyte Esterase Urine WBC (Auto) Urine RBC (Auto) U Hyaline Cast (Auto) U Epithel Cells (Auto) Urine Bacteria (Auto) Nasal Screen MRSA (PCR) Diagnostic Findings Head CT 01/01/25 15:29 Clinical History: Altered mental status Technique: Axial computed tomography images were obtained of the brain without intravenous contrast. Findings: There is diffuse cerebral atrophy, within expected limits for the patient's age. Areas of decreased attenuation are seen within the periventricular white matter, likely representing chronic small vessel ischemic disease. There is no definite sign of acute or old infarction. No intracranial hemorrhage is evident. No definite mass lesion is seen on this noncontrast examination. There is no midline shift or other form of herniation. No hydrocephalus is seen. No fracture is identified. There is near-complete opacification of the right maxillary sinus. The mastoid air cells appear clear. Impression: 1. Cerebral atrophy and chronic small vessel ischemic disease 2. Right maxillary sinusitis Electronically signed by Surinder Orozco 01-01-2025 4:20 PM Chest X-Ray 12/31/24 12:47 XR chest 1V portable CLINICAL HISTORY: Chest pain, nonspecific COMPARISON STUDY: Chest radiograph October 13, 2021. Chest CT May 23, 2014. FINDINGS: No pneumothorax or pleural effusion is present. Linear bibasilar densities favor atelectasis. A large hiatal hernia is present. Moderate cardiomegaly is noted. There is no evidence for pulmonary edema. IMPRESSION: 1. No acute cardiopulmonary findings. 2. Cardiomegaly. 3. Large hiatal hernia. ACT 112: Negative or not required by law. Electronically signed by: Joselito Vega M.D. 12/31/2024 2:20 PM Medications Administered Home Medications Medication Instructions Recorded Confirmed Last Taken coenzyme Q10 100 mg capsule 100 mg PO HS 12/12/17 12/31/24 01/27/21 (CoQ-10) losartan 25 mg tablet 25 mg PO QDL 12/12/17 12/31/24 01/27/21 cholecalciferol (vitamin D3) 50 2,000 unit PO QAM 04/28/19 12/31/24 01/27/21 mcg (2,000 unit) capsule (Vitamin D3) [id number] 1,000 mg PO DAILY 01/28/21 12/31/24 01/27/21 ascorbate calcium (vitamin C) 500 500 mg PO DAILY 08/02/23 12/31/24 Unknown mg tablet mecobalamin (vitamin B12) 500 mcg 500 mcg PO DAILY 08/02/23 12/31/24 Unknown chewable tablet tangy tangerine 0 mg PO DAILY 03/08/24 12/31/24 Unknown clopidogrel 75 mg tablet (Plavix) 75 mg PO DAILY #90 tabs 10/25/24 12/31/24 Unknown levothyroxine 50 mcg tablet 50 mcg PO DAILY #90 tabs 12/18/24 12/31/24 Unknown MegaRed [place]-3 Krill Oil 0 mg PO DAILY 12/31/24 12/31/24 Unknown ipratropium bromide 21 mcg (0.03 0 spray intranasal BID 12/31/24 12/31/24 Unknown %) nasal spray Active Medications Generic Name Dose Route Start Last Admin Trade Name Freq PRN Reason Stop Dose Admin Acetaminophen 1,000 mg in 100 mls @ 400 mls/hr 01/01/25 05:07 01/01/25 06:00 Ofirmev IV 01/02/25 05:06 Infused Q8H PRN Infusion Pain or Fever Dexmedetomidine/Sodium Chloride 200 mcg in 50 mls @ 7.92 mls/hr 01/01/25 06:00 01/01/25 09:35 Precedex IV 01/05/25 05:59 Infused .Q6H19M JOANN Titration Protocol 0.4 MCG/KG/HR Lactated Ringer's 1,000 mls @ 120 mls/hr 01/01/25 07:00 01/01/25 12:24 Lr IV 01/01/25 23:39 120 mls/hr .Q8H20M JOANN Administration Levothyroxine Sodium 50 mcg 01/01/25 06:30 01/01/25 06:00 Levothyroxine Sodium 50 Mcg Tablet PO 01/31/25 06:29 Not Given DAILYBB JOANN Metoprolol Tartrate 25 mg 12/31/24 21:00 12/31/24 19:51 Metoprolol Tartrate 25 Mg Tab PO 01/30/25 20:59 25 mg BID JOANN Administration Miscellaneous 1 each 12/31/24 16:30 01/01/25 08:57 Icu Protocol For Hyperglycemia N/A 01/02/25 16:29 Not Given ACHS JOANN Ondansetron HCl 4 mg 12/31/24 22:22 12/31/24 22:36 Ondansetron Inj 2 Mg/Ml 2 Ml Vial IV 01/30/25 22:21 4 mg Q6H PRN Administration Nausea And Vomiting Coding Level of Care Code 26189 SUB INP/OBS CARE 2/35MIN Diagnoses ST elevation (STEMI) myocardial infarction I21.3 Involved coronary artery: unspecified coronary artery Essential hypertension I10 Hypertension type: essential hypertension Hyperlipidemia, unspecified hyperlipidemia type E78.5 Hyperlipidemia type: unspecified Hypothyroidism, unspecified type E03.9 Hypothyroidism type: unspecified Coronary artery disease involving [place] coronary artery of [place] heart, angina presence unspecified I25.10 Associated angina: angina presence unspecified Coronary Disease-Associated Artery/Lesion type: [place] artery [place] vs. transplanted heart: [place] heart Time Spent (min) 45 (1) ST elevation (STEMI) myocardial infarction Involved coronary artery: unspecified coronary artery Qualified Code(s): I21.3 - ST elevation (STEMI) myocardial infarction of unspecified site (2) Hypertension Hypertension type: essential hypertension Qualified Code(s): I10 - Essential (primary) hypertension (3) Hyperlipidemia Hyperlipidemia type: unspecified Qualified Code(s): E78.5 - Hyperlipidemia, unspecified (4) Hypothyroidism Hypothyroidism type: unspecified Qualified Code(s): E03.9 - Hypothyroidism, unspecified (5) CAD (coronary artery disease) Associated angina: angina presence unspecified Coronary Disease-Associated Artery/Lesion type: [place] artery [place] vs. transplanted heart: [place] heart Qualified Code(s): I25.10 - Atherosclerotic heart disease of [place] coronary artery without angina pectoris
[2025-01-01] MEDS: ASPIRIN 81 MG ECTAB PO SCH (13:05)
[2025-01-01] MEDS: CLOPIDOGREL BISULFATE 75 MG TAB PO SCH (13:05)
--- NOTE | 2025-01-01 16:08 | XCELERA ---
[id number]
--- NOTE | 2025-01-01 16:20 | CT Scan Report ---
Clinical History: Altered mental status Technique: Axial computed tomography images were obtained of the brain without intravenous contrast. Findings: There is diffuse cerebral atrophy, within expected limits for the patient's age. Areas of decreased attenuation are seen within the periventricular white matter, likely representing chronic small vessel ischemic disease. There is no definite sign of acute or old infarction. No intracranial hemorrhage is evident. No definite mass lesion is seen on this noncontrast examination. There is no midline shift or other form of herniation. No hydrocephalus is seen. No fracture is identified. There is near-complete opacification of the right maxillary sinus. The mastoid air cells appear clear. Impression: 1. Cerebral atrophy and chronic small vessel ischemic disease 2. Right maxillary sinusitis Electronically signed by Surinder Orozco 01-01-2025 4:20 PM
[2025-01-01] MEDS: FLUMAZENIL 0.1 MG/1 ML 10 ML VIAL IV STA (17:11)
[2025-01-02 05:43] LABS: Albumin Level 4.1 gm/dl (3.4-5.0); Anion Gap 11.0 (3-11); Blood Urea Nitrogen 25.0 mg/dl (6-23); Calcium 9.2 mg/dl (8.6-10.3); Carbon Dioxide 26.0 mmol/L (21-32); Chloride 100.0 mmol/L (98-107); Creatinine Clr Calc Pharmacy 32.9 ml/min; Glucose 83.0 mg/dl (70-99(Fasting)); Potassium 3.8 mmol/L (3.5-5.1); Sodium 137.0 mmol/L (136-145)
--- NOTE | 2025-01-02 07:05 | Hospitalist Progress Note ---
Date of Service January 02, 2025 Assessment & Plan (1) Type 1 myocardial infarction: (2) Occlusive coronary artery disease: (3) Acute kidney injury: (4) Acute hyperactive delirium due to another medical condition: Plan In summary this is an 84-year-old female who presented with chest pain, found to have EKG changes concerning for an acute myocardial infarction #Type 1 Myocardial Infarction // Occlusive CAD // Hyperlipidemia intolerant of statin therapy // Essential hypertension Initial onset began on the day of presentation and has waxed and waned since then; is notably worse with activity; this is not similar to her previous heart attack, noting that her prior episode was with far less discomfort; established risk factors include hypertension, hyperlipidemia, statin intolerance, GENEVIEVE; initial EKG concerning for acute anterior versus lateral infarct; required PCI with CHRISTINE to LAD and diagonal on 12/31, procedure performed without complication -Maintain continuous color television console monitor -Nursing to contact attending if patient develops recurrent or new anginal equivalent -Continue ASA 81 mg p.o. daily -Continue Clopidogrel 75 mg p.o. daily -TTE on 01/02 reveals new wall motion abnormality consistent with area of LAD stenosis as well as moderately reduced ejection fraction of 40-45% -Cardiology and Crticial Care consulted #Acute Kidney Injury Baseline creatinine measures typically 1.00; trend of 1.37, 1.225; currently nonoliguric without recent hypotensive period; No significant electrolyte nor acid-base derangements; suspect this is consequential of a prerenal injury due to poor forward perfusion in the setting of their presenting myocardial infarction; continue IVF; alternatively the creatinine rise could be related to the patient's troponin rise rather than a proper acute kidney injury, reassessment and conservative treatment at this time - Nursing to notify attending of urine output below goal of 0.5 mL/kg/h - Continue intake and output measures every shift - Follow daily renal function panel - Urinalysis was obtained, bland #Elevated temperature Resolved #Acute hyperactive delirium due to critical illness Slightly improved, waxing and waning; would strongly recommend against benzodiazepines and anticholinergic agents as this can precipitate worsening delirium especially in the elderly population; unlikely to be related to the patient's acute kidney injury given the absence of electrolyte abnormalities Focus on nonpharmacologic measures and avoiding restraints is much as possible to reduce further spiral to delirium Minimize monitoring as much as possible If necessary, would recommend low-dose atypical antipsychotics if nonpharmacologic measures ultimately fail Admission and Anticipated Discharge Date Admission Date: December 31, 2024 Subjective Ms. Schmid is an 84-year-old female whose active medical conditions include hypertension, hyperlipidemia, coronary atherosclerotic disease with previous myocardial infarction, large hiatal hernia among other chronic medical conditions who presented to the [facility] on 12/31 due to persistent substernal chest discomfort. Her initial chest pain began on 12/29 during activity, which quickly resolved. Beginning on the day of presentation, she was performing her usual daily activities when she had sudden recurrence of her chest pain similar to what she had experienced on 12/29 and has waxed and waned since this morning. She denies any associated jaw pain or shoulder pain. She does endorse some dyspnea with exertion but denies any resting shortness of breath, orthopnea, platypnea, pleuritic chest pain, palpitations, nausea, vomi ting. She states this is significantly different from her previous heart attack which was far less painful than her current circumstance. No acute overnight events; remains with waxing and waning consciousness, but when alert she is without complaint other than remaining hospitalized Review of Systems Review of Systems: Review of constitutional, cardiovascular, pulmonary, neurologic systems was unremarkable Physical Exam Physical Exam: General: Elderly female in no acute distress Vital Signs: Reviewed HEENT: Moist mucous membranes; pupils equally round and reactive to light Neck: No remarkable jugular venous distention nor hepatojugular reflux Pulmonary: Symmetric chest wall excursion without restriction; clear to auscultation bilaterally Cardiovascular: Regular rate and rhythm with grade 2/6 murmur best heard in the right second intercostal space parasternally; no rubs or gallops; right radial pulse 2+ with slow capillary refill; no notable lower extremity edema Skin: large ecchymosis involving the right volar forearm in the area of access from [facility] on 12/31 Results & Data Results & Data Vital Signs (Past 12 Hours) Vital Signs Temp Pulse Resp BP Pulse Ox 01/02/25 06:00 142/64 H 01/02/25 06:00 79 18 97 01/02/25 05:49 37.5 C 01/02/25 05:03 73 15 96 01/02/25 05:01 147/75 H 01/02/25 05:01 147/75 H 01/02/25 05:01 147/75 H 01/02/25 05:01 147/75 H 01/02/25 05:01 147/75 H 01/02/25 05:00 72 19 94 01/02/25 04:00 123/75 01/02/25 04:00 123/75 01/02/25 04:00 123/75 01/02/25 04:00 123/75 01/02/25 04:00 123/75 01/02/25 04:00 74 22 97 01/02/25 03:00 132/62 01/02/25 03:00 132/62 01/02/25 03:00 132/62 01/02/25 03:00 132/62 01/02/25 03:00 132/62 01/02/25 03:00 80 18 94 01/02/25 02:03 83 18 96 01/02/25 02:00 84 19 125/102 H 98 01/02/25 01:00 85 20 133/61 80 L 01/02/25 00:30 37.8 C H 01/02/25 00:00 73 19 113/76 95 01/01/25 23:00 71 18 120/60 95 01/01/25 22:00 99/70 L 01/01/25 22:00 88 21 99/70 L 96 01/01/25 21:00 80 20 111/65 96 01/01/25 20:00 91/58 L 01/01/25 20:00 68 19 91/58 L 96 01/01/25 19:21 37.3 C 01/01/25 19:03 94 H 22 100/68 97 01/01/25 19:00 90 24 110/68 93 Laboratory Results Creatinine trend 1.37 to 1.25 PG Care Time/CCT Total # of Minutes Spent Total Time Spent with Patient: Total time spent is greater than 50% in coordination of care (as documented) at patient's floor/unit and/or counseling patient: Coding Level of Care Code 23564 SUB INP/OBS CARE 2/35MIN Diagnoses Type 1 myocardial infarction I21.9 Occlusive coronary artery disease I25.10 Acute kidney injury N17.9 Acute hyperactive delirium due to another medical condition F05
--- NOTE | 2025-01-02 07:32 | Critical Care Progress Note ---
Date of Service January 02, 2025 Assessment & Plan (1) ST elevation (STEMI) myocardial infarction: (2) Hypertension: (3) Hyperlipidemia: (4) Hypothyroidism: (5) CAD (coronary artery disease): Plan Reason Critically Ill: STEMI status post PCI 12/31/2024 Hypertension Hyperlipidemia Hypothyroidism Neuro: Continues alternating between combativeness and non-interaction with staff Seemed to interact well with family earlier, but still family do not think that patient is back to her baseline. Will try to obtain head MRI using Precedex to try to keep her from being combative. Cardiac: History of underlying CAD status post PCI to LAD in 2016 Underlying hypertension and hyperlipidemia (statin intolerant) STEMI on admission, taken to [facility] Case [facility] with drug-eluting stent to diagonal and to mid LAD. Vital signs are stable. No arrhythmias. Blood pressure is acceptable. EF mildly-reduced at 40-45%. Will continue aspirin and Plavix when safe to give to patient. Continue metoprolol. Continue to monitor on telemetry. Respiratory: No acute concerns at this time. On room air. Out of bed is much as possible, when confusion improves. GI: Cardiac diet. Can add MiraLAX if needed for bowel regimen. RENAL/LYTES: No issues. Repeat chemistry in the morning. Monitor urine output. : Alcantara catheter discontinued. Incontinent to urine. Using Purewick. ENDO: TSH acceptable. HEME: CBC without significant anemia or leukocytosis. Repeat CBC in AM. ID: No evidence of acute infection at this time. No indication for antibiotics. Feeding: Cardiac diet Fluids: None Analgesia: None Activity: Up with assist Thromboprophylaxis: Ambulate, if remains in bed Place SCDs Ulcer prophylaxis: Has diet, not indicated Glycemic control: Blood glucose acceptable, sliding scale insulin not indicated yet Bowels: Add MiraLAX if needed for bowel regimen. Indwelling catheters: Peripheral IV Antibiotics: None I have personally spent 55 minutes of critical care time in the direct management of this patient. This is a life/limb threatening event. This includes time spent evaluating the patient, direct bedside care, chart review, placing orders, interpreting diagnostic studies, communicating with consultants, attending providers, patient, and family members, as well as required patient management activities. This time is exclusive of all separately-billable procedures and teaching time, and separate from and in addition to any other critical care service time. Admission and Anticipated Discharge Date Admission Date: December 31, 2024 Subjective The patient is a very pleasant 84-year-old female who presented to the ED with persistent substernal chest pain. Her symptoms began during activity two days prior, quickly resolved, but recurred on the day of presentation while she was performing her usual daily activities. The chest pain waxed and waned throughout the morning and became constant for some time prior to arrival. She described the pain as similar to her previous myocardial infarction, but notably more severe. She also admitted to some exertional dyspnea. An EKG obtained in the ED demonstrated ST elevations in the high lateral leads with reciprocal depressions, consistent with an acute STEMI. Troponin was markedly elevated. She was emergently taken to the Medical Case [facility], where coronary angiography revealed severe obstructive CAD involving the LAD and diagonal branches, with successful PCI performed to both vessels using drug-eluting stents. LV function was preserved at 55%, but LVEDP was elevated at 28 mmHg. Following PCI, she remained hemodynamically stable, without recurrent chest pain or shortness of breath. She developed a small hematoma and mild pain at the r ight radial access site but had no other complaints. Overnight, she experienced intermittent confusion and agitation, suspected on the basis of critical illness and environmental changes, with no evidence of infection, significant metabolic derangement, or focal neurological findings. Her creatinine increased from baseline, but she remained nonoliguric and without electrolyte abnormalities. Her past medical history included CAD status post prior PCI to the LAD in 2015, hypertension, hyperlipidemia (statin intolerant), hypothyroidism, and a large hiatal hernia. Note from 01/01/2025: This morning the patient was on Precedex drip, and when the drip was stopped she was only responsive to painful stimuli, and the only response would be that she would get combative. This was suspected on the basis of Zyprexa and Ativan given around 5 am for agitation. There was concern that she was not opening her left eye as well as her right eye. I ordered a CT of brain to make sure that the patient did not sustain a CVA or brain hemorrhage following PCI. I was planning on giving Flumazenil, but after coming back from CT the patient became more responsive and started talking to the nurses clearly and got up and wanted to walk to the bathroom. She mostly asked for water to drink. Initially she told the bedside nurse that she didn't want to talk to her but wanted her to get her water. When I tried to talk to her she only talked to me when she would tell me to leave her arm alone while I was trying to keep her from walking away from the bed. Eventually, the patient decided to go back to bed. Note from 01/02/2025: Patient seemed to be sleeping well when taken off of Precedex last evening. In the morning she was minimally responsive. She seemed to interact well with her family this am, though her son admitted that she was not back to her normal self when he talked to her this am. Tried to get brain MRI/MRA this am, but patient became combative with the staff. She didn't seem to respond to the low-dose Precedex started in MRI, so the procedure was aborted. The patient was calm but not very interactive when she came back to the unit. Will start Precedex in the unit and try MRI again. Review of Systems Review of Systems: All systems reviewed & are unremarkable except as noted in HPI & below Physical Exam Physical Exam: General: In no acute distress, breathing room-air. Skin: Warm and dry to touch. Large bruise over the right forearm. Eyes: Anicteric.Noconjunctival hyperemia or exudates.No periorbital edema. Respiratory: Diffusely decreased breath sounds, no wheezing or crackles. No use of accessory muscles and no prolonged exhalation. Cardiac: Normal sounds, regular rhythm, no murmurs, no gallops, no rubs; could not appreciate JV pulse elevation. GI: Soft, nontender. Extremities No cyanosis,no edema. Right Radial-Artery hematoma. Neuro: No gross motor deficits when she becomes combative. No obvious asymmetry. Pupils equal and responsive to light symmetrically. No facial-droop. Speech is clear but very soft. Results & Data Results & Data Vital Signs (Past 12 Hours) Vital Signs Temp Pulse Resp BP Pulse Ox 01/02/25 06:00 142/64 H 01/02/25 06:00 79 18 97 01/02/25 05:49 37.5 C 01/02/25 05:03 73 15 96 01/02/25 05:01 147/75 H 01/02/25 05:01 147/75 H 01/02/25 05:01 147/75 H 01/02/25 05:01 147/75 H 01/02/25 05:01 147/75 H 01/02/25 05:00 72 19 94 01/02/25 04:00 123/75 01/02/25 04:00 123/75 01/02/25 04:00 123/75 01/02/25 04:00 123/75 01/02/25 04:00 123/75 01/02/25 04:00 74 22 97 01/02/25 03:00 132/62 01/02/25 03:00 132/62 01/02/25 03:00 132/62 01/02/25 03:00 132/62 01/02/25 03:00 132/62 01/02/25 03:00 80 18 94 01/02/25 02:03 83 18 96 01/02/25 02:00 84 19 125/102 H 98 01/02/25 01:00 85 20 133/61 80 L 01/02/25 00:30 37.8 C H 01/02/25 00:00 73 19 113/76 95 01/01/25 23:00 71 18 120/60 95 01/01/25 22:00 99/70 L 01/01/25 22:00 88 21 99/70 L 96 01/01/25 21:00 80 20 111/65 96 01/01/25 20:00 91/58 L 01/01/25 20:00 68 19 91/58 L 96 Laboratory Results 01/01/25 Unknown Urine Culture - Pending Urine,Indwelling Cath 01/02/25 01/01/25 04:21 21:11 Sodium 137 Potassium 3.8 Chloride 100 Carbon Dioxide 26 Anion Gap 11 BUN 25 H Creatinine 1.25 H Est Cr Clr Drug Dosing 32.9 eGFR 41.98 BUN/Creatinine Ratio 20.0 Glucose 83 POC Glucose 93 Calcium 9.2 Phosphorus 2.5 Albumin 4.[address] 01/01/25 15:29 Clinical History: Altered mental status Technique: Axial computed tomography images were obtained of the brain without intravenous contrast. Findings: There is diffuse cerebral atrophy, within expected limits for the patient's age. Areas of decreased attenuation are seen within the periventricular white matter, likely representing chronic small vessel ischemic disease. There is no definite sign of acute or old infarction. No intracranial hemorrhage is evident. No definite mass lesion is seen on this noncontrast examination. There is no midline shift or other form of herniation. No hydrocephalus is seen. No fracture is identified. There is near-complete opacification of the right maxillary sinus. The mastoid air cells appear clear. Impression: 1. Cerebral atrophy and chronic small vessel ischemic disease 2. Right maxillary sinusitis Electronically signed by Surinder Orozco 01-01-2025 4:20 PM Medications Administered Home Medications Medication Instructions Recorded Confirmed Last Taken coenzyme Q10 100 mg capsule 100 mg PO HS 12/12/17 12/31/24 01/27/21 (CoQ-10) losartan 25 mg tablet 25 mg PO QDL 12/12/17 12/31/24 01/27/21 cholecalciferol (vitamin D3) 50 2,000 unit PO QAM 04/28/19 12/31/24 01/27/21 mcg (2,000 unit) capsule (Vitamin D3) [id number] 1,000 mg PO DAILY 01/28/21 12/31/24 01/27/21 ascorbate calcium (vitamin C) 500 500 mg PO DAILY 08/02/23 12/31/24 Unknown mg tablet mecobalamin (vitamin B12) 500 mcg 500 mcg PO DAILY 08/02/23 12/31/24 Unknown chewable tablet tangy tangerine 0 mg PO DAILY 03/08/24 12/31/24 Unknown clopidogrel 75 mg tablet (Plavix) 75 mg PO DAILY #90 tabs 10/25/24 12/31/24 Unknown levothyroxine 50 mcg tablet 50 mcg PO DAILY #90 tabs 12/18/24 12/31/24 Unknown MegaRed [place]-3 Krill Oil 0 mg PO DAILY 12/31/24 12/31/24 Unknown ipratropium bromide 21 mcg (0.03 0 spray intranasal BID 12/31/24 12/31/24 Unknown %) nasal spray Active Medications Generic Name Dose Route Start Last Admin Trade Name Freq PRN Reason Stop Dose Admin Aspirin 81 mg 01/01/25 09:00 01/01/25 13:05 Aspirin 81 Mg Ectab PO 01/31/25 08:59 81 mg QAM JOANN Administration Clopidogrel Bisulfate 75 mg 01/01/25 09:00 01/01/25 13:05 Clopidogrel Bisulfate 75 Mg Tab PO 01/31/25 08:59 75 mg QAM JOANN Administration Dexmedetomidine/Sodium Chloride 200 mcg in 50 mls @ 0 mls/hr 01/01/25 06:00 01/02/25 06:56 Precedex IV 01/05/25 05:59 0 mcg/kg/hr .Q0M JOANN 0 mls/hr Titration Protocol 0 MCG/KG/HR Levothyroxine Sodium 50 mcg 01/01/25 06:30 01/02/25 06:15 Levothyroxine Sodium 50 Mcg Tablet PO 01/31/25 06:29 Not Given DAILYBB JOANN Metoprolol Tartrate 25 mg 12/31/24 21:00 01/01/25 20:06 Metoprolol Tartrate 25 Mg Tab PO 01/30/25 20:59 Not Given BID JOANN Miscellaneous 1 each 12/31/24 16:30 01/01/25 21:14 Icu Protocol For Hyperglycemia N/A 01/02/25 16:29 Not Given ACHS JOANN Ondansetron HCl 4 mg 12/31/24 22:22 12/31/24 22:36 Ondansetron Inj 2 Mg/Ml 2 Ml Vial IV 01/30/25 22:21 4 mg Q6H PRN Administration Nausea And Vomiting Coding Level of Care Code 33169 CRITICAL CARE 1ST 30-74M Diagnoses ST elevation (STEMI) myocardial infarction I21.3 Involved coronary artery: unspecified coronary artery Essential hypertension I10 Hypertension type: essential hypertension Hyperlipidemia, unspecified hyperlipidemia type E78.5 Hyperlipidemia type: unspecified Hypothyroidism, unspecified type E03.9 Hypothyroidism type: unspecified Coronary artery disease involving sioux coronary artery of sioux heart, angina presence unspecified I25.10 Associated angina: angina presence unspecified Coronary Disease-Associated Artery/Lesion type: [place] artery [place] vs. transplanted heart: sioux heart Time Spent (min) 55 (1) ST elevation (STEMI) myocardial infarction Involved coronary artery: unspecified coronary artery Qualified Code(s): I21.3 - ST elevation (STEMI) myocardial infarction of unspecified site (2) Hypertension Hypertension type: essential hypertension Qualified Code(s): I10 - Essential (primary) hypertension (3) Hyperlipidemia Hyperlipidemia type: unspecified Qualified Code(s): E78.5 - Hyperlipidemia, unspecified (4) Hypothyroidism Hypothyroidism type: unspecified Qualified Code(s): E03.9 - Hypothyroidism, unspecified (5) CAD (coronary artery disease) Associated angina: angina presence unspecified Coronary Disease-Associated Artery/Lesion type: [place] artery [place] vs. transplanted heart: sioux heart Qualified Code(s): I25.10 - Atherosclerotic heart disease of sioux coronary artery without angina pectoris
[2025-01-02] MEDS: LACTATED RINGER'S 1,000 ML IV SCH (07:51)
[2025-01-02] MEDS ORDERED: Nursing to Pharmacy Communication SCH ×2 (14:15→16:15)
[2025-01-02] MEDS: LACTATED RINGER'S 500 ML IV ONE ×2 (15:30→16:07)
--- NOTE | 2025-01-02 19:01 | Magnetic Resonance Report ---
Clinical history: Confusion Technique: Magnetic resonance angiography was performed of the [place] using a 3 D time of flight technique. Angiographic reconstructions were obtained Findings: The visualized internal carotid arteries appear unremarkable bilaterally. No definite stenosis or aneurysm is identified of the anterior, middle, or posterior cerebral artery circulations bilaterally. The cerebellar arteries are patent. The basilar artery appears unremarkable. No vascular malformation is seen. No other definite abnormality is noted. Impression: Unremarkable MRA of the brain Electronically signed by Surinder Orozco 01-02-2025 7:01 PM
[2025-01-02] MEDS: ASPIRIN 300 MG SUPP PR ONE (21:11)
[2025-01-03 05:13] LABS: Albumin Level 3.1 gm/dl (3.4-5.0); Anion Gap 9.0 (3-11); Blood Urea Nitrogen 27.0 mg/dl (6-23); Calcium 8.4 mg/dl (8.6-10.3); Carbon Dioxide 22.0 mmol/L (21-32); Chloride 103.0 mmol/L (98-107); Creatinine Clr Calc Pharmacy 44.5 ml/min; Glucose 78.0 mg/dl (70-99(Fasting)); Potassium 3.7 mmol/L (3.5-5.1); Sodium 134.0 mmol/L (136-145)
--- NOTE | 2025-01-03 17:36 | Hospitalist Progress Note ---
Date of Service January 03, 2025 Assessment & Plan (1) Type 1 myocardial infarction: (2) Occlusive coronary artery disease: (3) Acute kidney injury: (4) Acute hyperactive delirium due to another medical condition: Plan The patient is an 84-year-old woman admitted with STEMI and underwent PCI, subsequently went into a severe agitated delirium. That is resolving # STEMI Underwent coronary angiography on 12/31/2024 with PCI of LAD artery and diagonal branch. Echo: Regional wall motion abnormalities in LAD territory, EF 40-45% Diagnostic plan: Continue telemetry monitoring, transfer out of ICU. Treatment plan: Continue aspirin and Plavix. Continue statin therapy. continue metoprolol and started low-dose losartan. she is followed by [facility] cardiology Dr. Fabian, plan to consult them in the a.m. # OLIVERIO on CKD Stage 3 OLIVERIO resolved, creatinine levels returned to baseline. # Acute Metabolic Encephalopathy Severe delirium with agitation and combativeness, required Precedex in ICU. Significant improvement today. Treatment plan: Avoid neurotoxic and sedating medications. Provide reorientation. Initiate PT and OT today. # hypothyroidism - continue levothyroxine low-dose, check TSH # DVT Prophylaxis: start enoxaparin she is frail and 84 years old has been bedbound for a few days will consult PT and OT would not be surprising if she required rehab Medical Complexity: Medical decision making was complex, high risk for clinical deterioration morbidity, or mortality for this encounter. Admission and Anticipated Discharge Date Admission Date: December 31, 2024 Subjective Reason for Admit: STEMI. The patient is an 84-year-old woman who was admitted due to a heart attack. She has been very confused and out of it for the last few days, but today she is doing much better and is aware of her basic situation at minimum. She has trouble hearing because her hearing aid batteries are , which makes it hard to communicate. She doesn't remember what happened over the last few days. She is not experiencing any chest pain, shortness of breath, abdominal pain, nausea, or vomiting. She has been talking to her family today and asked her [id number] to go get her eyedrops from home. Physical Exam Physical Exam: General Appearance: Appears younger than her age, awake, alert, using cell phone in bed. Vital signs: Reviewed past 24h vital signs in EMR, unremarkable. HEENT: Pupils equal, round, reactive to light. Extraocular movements intact. [place] Respiratory: Lungs clear bilaterally. No rhonchi, rales, or wheezes. Cardiovascular: Regular rhythm. No murmurs, rubs, or gallops. Gastrointestinal: Soft, nontender, nondistended. Extremities: Lower extremities warm, well perfused. No pitting edema, some lymphedema vs. fat in lower calves and ankles. R wrist access site - +radial pulse, no hematoma, hand warm Neurological: AOx4 Speech intact. Psychiatric: Normal. Results & Data Results & Data Vital Signs (Past 12 Hours) Vital Signs Pulse Resp BP Pulse Ox O2 Del Method 01/03/25 11:00 83 17 131/77 Room Air 01/03/25 10:00 84 20 132/86 Room Air 01/03/25 09:00 82 21 116/60 01/03/25 08:00 106 H 27 H 113/71 99 01/03/25 07:00 87 23 121/63 93 01/03/25 06:00 129/73 01/03/25 06:00 129/73 01/03/25 06:00 129/73 01/03/25 06:00 129/73 01/03/25 06:00 129/73 01/03/25 06:00 89 28 H 96 Laboratory Results sodium 134 BUN 27 and creatinine 0.93 which improved from 1.25 and is her baseline - Imaging: - Echo: Regional wall motion abnormalities in LAD territory, EF 40-45% PG Care Time/CCT Total # of Minutes Spent Total Time Spent with Patient: Total time spent is greater than 50% in coordination of care (as documented) at patient's floor/unit and/or counseling patient: Coding Level of Care Code 39614 SUB INP/OBS CARE 3/50MIN Diagnoses Type 1 myocardial infarction I21.9 Occlusive coronary artery disease I25.10 Acute kidney injury N17.9 Acute hyperactive delirium due to another medical condition F05
[2025-01-03] MEDS: POLYETHYLENE (MIRALAX) 17 GM PACK PO SCH (19:26)
[2025-01-03] MEDS: ENOXAPARIN INJ 40 MG/0.4 ML SYR SQ SCH (20:38)
[2025-01-04 05:51] LABS: T4 Free Thyroxine 0.92 ng/dl (0.61-1.60)
[2025-01-04] MEDS: LOSARTAN POTASSIUM 25 MG TAB PO SCH (12:31)
--- NOTE | 2025-01-04 12:59 | Electrocardiogram Report ---
Test Reason : Blood Pressure : */* mmHG Vent. Rate : 89 BPM Atrial Rate : 82 BPM P-R Int : 184 ms QRS Dur : 84 ms QT Int : 344 ms P-R-T Axes : 63 48 -11 degrees QTcB Int : 418 ms Sinus rhythm with Premature supraventricular complexes ST elevation consider lateral injury or acute infarct Abnormal ECG When compared with ECG of 16-Mar-2023 12:11, Premature supraventricular complexes are now Present ST now depressed in Inferior leads ST elevation now present in Lateral leads T wave inversion now evident in Inferior leads T wave inversion now evident in Anterior leads Confirmed by Mak Landaverde ([id number]) on 01/04/2025 12:59:15 PM Referred By: NO PCP Confirmed By: Mak Landaverde
--- NOTE | 2025-01-04 14:01 | Cardiology Progress Note ---
Date of Service January 04, 2025 Assessment & Plan (1) STEMI (ST elevation myocardial infarction): (2) Occlusive coronary artery disease: (3) Hypertension: (4) Hyperlipidemia: (5) CAD (coronary artery disease): (6) Statin intolerance: Plan Reviewed need for GDMT including DAPT, beta isaías and lipid lowering med (if unable to tolerate statin-PCSK9) Will arrange for cardiac rehab post DC Admission and Anticipated Discharge Date Admission Date: December 31, 2024 Subjective Patient was seen today in CV follow up-she is known to Dr. Fabian. she underwent LHC for STEMI this weekend by the [facility] interventionalist who treated her appropriately, but cardiology consult was not placed and she was not signed out to us to see after the weekend. She did well with her cath-3 stents to LAD and Diagonal. HYBRID [employer] MECH[employer]IC of the RCA as well. She had an episode of delerium while in ICU which cleared as of yesterday. She is very particular about her medications. She does not want her cholesterol too low. she has been statin and zetia intolerant. Has not been started on PCSK9 inhibitor. She is reluctant. She takes many OTC supplements. Apparently taken off BB at some point in the recent past-but will need to resume this given the STEMI. I also reviewed need for DAPT. She doesn't want ASA because that could cause a stomach ulcer. Review of Systems Review of Systems: All systems reviewed & are unremarkable except as noted in HPI & below Physical Exam Physical Exam: without change no CHF Results & Data Vital Signs (Past 12 Hours) Vital Signs Temp Pulse Pulse Resp BP BP Pulse Ox 01/04/25 08:42 88 14 98/71 L 97 01/04/25 03:34 36.6 C 76 16 126/67 94 O2 Del Method 01/04/25 08:42 Room Air 01/04/25 03:34 Room Air Laboratory Results Abnormal lab results 01/04/25 Range/Units 04:26 TSH 9.447 H (0.300-4.500) uIu/ml Medications Administered Current Inpatient Medications Aspirin (Aspirin 81 Mg Ectab) 81 mg PO QAM [facility] Stop: 01/31/25 08:59 Last Admin: 01/04/25 07:57 Dose: 81 mg Clopidogrel Bisulfate (Clopidogrel Bisulfate 75 Mg Tab) 75 mg PO QAM [facility] Stop: 01/31/25 08:59 Last Admin: 01/04/25 07:57 Dose: 75 mg Enoxaparin Sodium (Enoxaparin Inj 40 Mg/0.4 Ml Syr) 40 mg SQ HS JOANN Stop: 02/02/25 20:59 Last Admin: 01/03/25 20:38 Dose: 40 mg Levothyroxine Sodium (Levothyroxine Sodium 50 Mcg Tablet) 50 mcg PO DAILYBB [facility] Stop: 01/31/25 06:29 Last Admin: 01/04/25 09:59 Dose: 50 mcg Losartan Potassium (Losartan Potassium 25 Mg Tab) 25 mg PO QDL JOANN Stop: 02/03/25 11:29 Last Admin: 01/04/25 12:31 Dose: 25 mg Melatonin (Melatonin 3 Mg Tab) 3 mg PO HS PRN PRN Reason: Sleep Stop: 01/31/25 06:24 Metoprolol Tartrate (Metoprolol Tartrate 25 Mg Tab) 25 mg PO BID [facility] Stop: 01/30/25 20:59 Last Admin: 01/04/25 07:57 Dose: 25 mg Nitroglycerin (Nitroglycerin Sl 0.4 Mg/Tab Tab) 0.4 mg SL Q5M PRN PRN Reason: Chest Pain Stop: 01/30/25 14:09 Ondansetron HCl (Ondansetron Inj 2 Mg/Ml 2 Ml Vial) 4 mg IV Q6H PRN PRN Reason: Nausea And Vomiting Stop: 01/30/25 22:21 Last Admin: 12/31/24 22:36 Dose: 4 mg Polyethylene Glycol (Polyethylene (Miralax) 17 Gm Pack) 17 gm PO QAM JOANN Stop: 02/02/25 09:59 Last Admin: 01/04/25 07:58 Dose: 17 gm (3) Hypertension Hypertension type: essential hypertension Qualified Code(s): I10 - Essential (primary) hypertension (4) Hyperlipidemia Hyperlipidemia type: unspecified Qualified Code(s): E78.5 - Hyperlipidemia, unspecified (5) CAD (coronary artery disease) Associated angina: angina presence unspecified Coronary Disease-Associated Artery/Lesion type: [place] artery [place] vs. transplanted heart: [place] heart Qualified Code(s): I25.10 - Atherosclerotic heart disease of [place] coronary artery without angina pectoris
--- NOTE | 2025-01-04 16:11 | Electrocardiogram Report ---
Test Reason : Blood Pressure : */* mmHG Vent. Rate : 87 BPM Atrial Rate : 87 BPM P-R Int : 180 ms QRS Dur : 74 ms QT Int : 380 ms P-R-T Axes : 48 31 97 degrees QTcB Int : 457 ms Normal sinus rhythm Serial changes of evolving Lateral infarct Abnormal ECG When compared with ECG of 31-Dec-2024 12:51, (unconfirmed) Premature supraventricular complexes are no longer Present ST no longer depressed in Inferior leads ST no longer depressed in Anterior leads ST no longer elevated in Lateral leads Confirmed by Mak Landaverde ([id number]) on 01/04/2025 4:11:14 PM Referred By: NO PCP Confirmed By: Mak Landaverde
--- NOTE | 2025-01-04 17:51 | Hospitalist Progress Note ---
Date of Service January 04, 2025 Assessment & Plan (1) Type 1 myocardial infarction: (2) Occlusive coronary artery disease: (3) Acute kidney injury: (4) Acute hyperactive delirium due to another medical condition: Plan The patient is an 84-year-old woman admitted with STEMI and underwent PCI, subsequently went into a severe agitated delirium. That is resolving # STEMI Underwent coronary angiography on 12/31/2024 with PCI of LAD artery and diagonal branch. Echo: Regional wall motion abnormalities in LAD territory, EF 40-45% Diagnostic plan: Continue telemetry monitoring Treatment plan: Continue aspirin and Plavix. Continue statin therapy. continue metoprolol and started low-dose losartan. she is [facility] by [facility] cardiology Dr. Fabian, consulted Dr. Granados who saw Yolie today. Counseled on need to continue current meds, especially DAPT, statin and consideration of PCSK9 inhibitor. Follow up with Dr. Fabian # OLIVERIO on CKD Stage 3 OLIVERIO resolved, creatinine levels returned to baseline. # Acute Metabolic Encephalopathy Severe delirium with agitation and combativeness, required Precedex in ICU. Significant improvement today. Treatment plan: Avoid neurotoxic and sedating medications. Resolved - per granddaughter back to her normal mental status # hypothyroidism - continue levothyroxine low-dose, TSH 9 and free T4 normal. May be euthyroid sick, follow up for repeat TSH in primary care # CAUTI - foul urine and dysuria, UA pending -start ceftriaxone if pyuria # DVT Prophylaxis: enoxaparin PT/OT cleared for home independent Admission and Anticipated Discharge Date Admission Date: December 31, 2024 Subjective She says she's feeling pretty well today and doesn't have any chest pain or trouble breathing. She's been moving around her room and has passed both physical and occupational therapy, so she's cleared to go home. She has a lot of bruising on her right forearm from where they accessed her artery, but she does n't have any pain, numbness, or tingling in her hand. She has noticed a bad smell in her urine and has had some pain when urinating. She had a [place] catheter when she was admitted, but it has been removed. Physical Exam Physical Exam: General Appearance: The patient is awake, alert, and oriented x4, though somewhat forgetful with mild confusion. Vital signs: Reviewed past 24h vital signs in EMR, unremarkable. HEENT: Face is symmetric. Speech intact. Respiratory: Lungs clear bilaterally. Cardiovascular: Heart rhythm regular. No murmurs, rubs, or gallops. Gastrointestinal: Abdomen soft, nontender, nondistended. Back, Musculoskeletal: Moves all extremities equally and walks with a steady gait. Extremities: Right wrist shows a 2 cm hematoma proximal to the TR band site, unchanged from yesterday. Extensive ecchymosis on the right forearm, especially medially. Radial artery pulse 2+. Hand warm and well perfused. Lower extremities warm and well perfused without pitting edema. Skin: Warm and dry, no rash. Neurological: AOx4, normal speech and mentation, gannon x 4. Psychiatric: Normal. Results & Data Results & Data Vital Signs (Past 12 Hours) Vital Signs Temp Pulse Pulse Resp BP BP Pulse Ox 01/04/25 17:18 37.1 C 80 18 119/68 94 01/04/25 13:22 101/57 L 01/04/25 13:22 101/57 L 01/04/25 13:22 101/57 L 01/04/25 13:22 74 18 101/57 L 94 01/04/25 08:42 88 14 98/71 L 97 O2 Del Method 01/04/25 17:18 Room Air 01/04/25 13:22 01/04/25 13:22 01/04/25 13:22 01/04/25 13:22 Room Air 01/04/25 08:42 Room Air Laboratory Results - Laboratory Studies: - TSH: 9 - Free T4: normal PG Care Time/CCT Total # of Minutes Spent Total Time Spent with Patient: Total time spent is greater than 50% in coordination of care (as documented) at patient's floor/unit and/or counseling patient: Coding Level of Care Code 85173 SUB INP/OBS CARE 2/35MIN Diagnoses Type 1 myocardial infarction I21.9 Occlusive coronary artery disease I25.10 Acute kidney injury N17.9 Acute hyperactive delirium due to another medical condition F05
[2025-01-04 18:22] LABS: Appearance Urine Turbid (Clear); Bacteria Urine Automated 4+ (None Seen); Glucose Urine UA Negative (Negative); WBC Urine Automated >50 /hpf (0-5)
[2025-01-04 18:24] LABS: Cast Urine Automated 0-2 /lpf (0-2)
[2025-01-04] MEDS: MELATONIN 3 MG TAB PO PRN (20:22)
[2025-01-05] MEDS: cefTRIAXone SODIUM 1,000 MG/50 ML BAG IV SCH (09:30)
--- NOTE | 2025-01-05 09:40 | Cardiology Progress Note ---
Date of Service January 05, 2025 Assessment & Plan (1) STEMI (ST elevation myocardial infarction): (2) Occlusive coronary artery disease: (3) Hypertension: (4) Hyperlipidemia: (5) CAD (coronary artery disease): (6) Statin intolerance: Plan Ms. Schmid is without further anginal symptoms. She will need to continue DAPT for a year uninterupted which she verbalized understanding of. We again discussed lipid control, which we've talked about many times in the clinic. She is intolerant of statins or Zetia. Her granddaughter is a PRODUCTION WOOD CRAFTSMAN and discussed with Dr. Granados yesterday that she would be able to give her shots to administer PCSK9i. Alternatively, we could set her up at the local infusion center for Leqvio. We will get this set up with her in follow up. Her echo showed newly mildly reduced EF. She appears euvolemic. We will repeat an echo in three months to re-evaluate. If still reduced, we can talk about switching her ARB to Entresto. We can also arrange for cardiac rehab on follow up. She does have a small hematoma under her radial puncture site. She has a distal pulse. She notes her fingers were tingly but feel better now. I don't feel pulsating in the lump itself but I will have her get an ultrasound to ensure no psuedoaneurysm. I will also get a blood count. Admission and Anticipated Discharge Date Admission Date: December 31, 2024 Subjective Ms. Schmid was sitting up to breakfast when I saw her this morning. She still feels a little mentally cloudy but was appropriate in our interaction. She denies sob or chest pain. She is not having any significant ectopy on the monitor. Review of Systems Review of Systems: All systems reviewed & are unremarkable except as noted in HPI & below Physical Exam Constitutional: WD/WN, vitals as above Respiratory: normal respiratory effort, lungs clear to auscultation Cardiovascular: RRR, no murmur, no edema Skin: no rashes, warm and dry Neurologic: moves all extremities and awake Psychiatric: A+Ox3, euthymic affect Results & Data Vital Signs (Past 12 Hours) Vital Signs Temp Pulse Pulse Resp BP BP Pulse Ox 01/05/25 06:57 36.4 C L 70 18 92/51 L 93 01/05/25 03:00 36.3 C L 64 18 100/60 92 01/05/25 02:00 68 01/04/25 23:31 60 01/04/25 23:26 01/04/25 22:31 36.6 C 62 18 103/66 96 01/04/25 21:55 36.5 C 68 20 123/62 97 O2 Del Method 01/05/25 06:57 Room Air 01/05/25 03:00 Room Air 01/05/25 02:00 01/04/25 23:31 01/04/25 23:26 Room Air 01/04/25 22:31 Room Air 01/04/25 21:55 Room Air (3) Hypertension Hypertension type: essential hypertension Qualified Code(s): I10 - Essential (primary) hypertension (4) Hyperlipidemia Hyperlipidemia type: unspecified Qualified Code(s): E78.5 - Hyperlipidemia, unspecified (5) CAD (coronary artery disease) Coronary Disease-Associated Artery/Lesion type: [place] artery [place] vs. transplanted heart: mi[place]q heart Associated angina: angina presence unspecified Qualified Code(s): I25.10 - Atherosclerotic heart disease of [place] coronary artery without angina pectoris
[2025-01-05 10:33] LABS: Hematocrit (blood only) 35.6 % (37.0-47.0); Hemoglobin 11.5 g/dL (12.0-16.0); Immature Granulocytes # (auto) 0.01 K/uL (0.01-0.20); Immature Granulocytes % (auto) 0.2 %; Mean Corpuscular Hemoglobin 26.7 pg (25.0-34.0); Mean Corpuscular Volume 82.8 fL (80.0-100.0); Platelet Count 269 K/uL (130-400); RDW Standard Deviation 42.5 fL (36.4-46.3); Red Blood Count 4.30 M/uL (4.20-5.40); White Blood Count 6.51 K/ul (4.8-10.8)
[2025-01-05 10:57] LABS: Anion Gap 8.0 (3-11); Blood Urea Nitrogen 29.0 mg/dl (6-23); Calcium 9.4 mg/dl (8.6-10.3); Carbon Dioxide 24.0 mmol/L (21-32); Chloride 106.0 mmol/L (98-107); Creatinine Clr Calc Pharmacy 35.9 ml/min; Glucose 162.0 mg/dl (70-99(Fasting)); Potassium 3.5 mmol/L (3.5-5.1); Sodium 138.0 mmol/L (136-145)
--- NOTE | 2025-01-05 14:02 | Ultrasound Report ---
RIGHT UPPER EXTREMITY DOPPLER ULTRASOUND CLINICAL HISTORY: Recent catheter placement with palpable lump. Evaluate for pseudoaneurysm. COMPARISON STUDY: No previous studies for comparison. TECHNIQUE: Grayscale, color and duplex Doppler sonography of the right forearm/wrist at site of palpa ble lump was performed. FINDINGS: No pseudoaneurysm is identified. Note is made of a 4.5 x 2.5 x 0.8 cm subcutaneous hypoecho ic abnormality of the right wrist which corresponds to the palpable lump. This contains no color flow . Adjacent portions of the right radial artery are unremarkable with normal waveform. IMPRESSION: 1. No right wrist/forearm pseudoaneurysm. 2. 4.5 x 2.5 x 0.8 cm subcutaneous hypoechoic abnormality of the right wrist which corresponds to the palpable lump. This contains no color flow and is suggestive of a hematoma. ACT 112: Negative or not required by law. Electronically signed by: Joselito Vega M.D. 01/05/2025 2:00 PM
[2025-01-05] MEDS ORDERED: POLYETHYLENE (MIRALAX) 17 GM PACK PO PRN (17:31)
--- NOTE | 2025-01-05 17:31 | Hospitalist Progress Note ---
Date of Service January 05, 2025 Assessment & Plan (1) Type 1 myocardial infarction: (2) Occlusive coronary artery disease: (3) Acute kidney injury: (4) Acute hyperactive delirium due to another medical condition: Plan The patient is an 84-year-old woman admitted with STEMI and underwent PCI, subsequently went into a severe agitated delirium. That is resolving # STEMI Underwent coronary angiography on 12/31/2024 with PCI of LAD artery and diagonal branch. Echo: Regional wall motion abnormalities in LAD territory, EF 40-45% Diagnostic plan: Continue telemetry monitoring Treatment plan: Continue aspirin and Plavix. Continue statin therapy. continue metoprolol and started low-dose losartan. she is followed by [facility] cardiology Dr. Fabian, consulted Dr. Granados who saw Yolie in hospital. Counseled on need to continue current meds, especially DAPT, statin and co nsideration of PCSK9 inhibitor. Follow up with Dr. Fabian # CAUTI - UA with pyuria. Had catheter earlier this admission - started ceftriaxone pending urine culture # OLIVERIO on CKD Stage 3 OLIVERIO resolved, creatinine levels returned to baseline. # Acute Metabolic Encephalopathy Severe delirium with agitation and combativeness, required Precedex in ICU. Significant improvement today. Treatment plan: Avoid neurotoxic and sedating medications. Resolved - per granddaughter back to her normal mental status # hypothyroidism - continue levothyroxine low-dose, TSH 9 and free T4 normal. May be euthyroid sick, follow up for repeat TSH in primary care # DVT Prophylaxis: enoxaparin PT/OT cleared for home independent Working on recruiting family member for more support at home few days. Home this weekend Admission and Anticipated Discharge Date Admission Date: December 31, 2024 Subjective She reports that she doesn't feel great today, mentioning that she has pain when urinating and feels a bit woozy. She does not have any shortness of breath or chest pain. She is sitting up on the edge of the bed, visiting with a friend, and is awake, alert, and oriented. She has no issues with forgetfulness. Physical Exam Physical Exam: General Appearance: Normal. Vital signs: Reviewed past 24h vital signs in EMR, unremarkable. HEENT: Within normal limits. Respiratory: Lungs clear bilaterally, nonlabored breathing. Cardiovascular: Heart regular, no murmurs, rubs, or gallops. Gastrointestinal: Abdomen soft, nontender, nondistended. Extremities: Lower extremities warm, well perfused, no edema. Skin: Significant ecchymosis along right forearm with 2.5 cm hematoma on inner wrist, flattening out as expected. Neurological: AOx4, normal speech and mentation, ganonn x 4. Psychiatric: Normal. Results & Data Results & Data Vital Signs (Past 12 Hours) Vital Signs Temp Pulse Pulse Resp BP BP Pulse Ox 01/05/25 14:53 78 01/05/25 14:47 36.7 C 71 17 118/67 97 01/05/25 10:43 36.5 C 73 19 104/58 L 96 01/05/25 08:00 67 01/05/25 06:57 36.4 C L 70 18 92/51 L 93 O2 Del Method 01/05/25 14:53 01/05/25 14:47 Room Air 01/05/25 10:43 Room Air 01/05/25 08:00 01/05/25 06:57 Room Air Laboratory Results - Urinalysis: - Grossly positive for UTI PG Care Time/CCT Total # of Minutes Spent Total Time Spent with Patient: Total time spent is greater than 50% in coordination of care (as documented) at patient's floor/unit and/or counseling patient: Coding Level of Care Code 70439 SUB INP/OBS CARE 2/35MIN Diagnoses Type 1 myocardial infarction I21.9 Occlusive coronary artery disease I25.10 Acute kidney injury N17.9 Acute hyperactive delirium due to another medical condition F05
--- NOTE | 2025-01-06 12:16 | Discharge Summary ---
Discharge Summary Date of Service January 06, 2025 Principal Dx & Hospital Course #1 = Principal Diagnosis (1) Type 1 myocardial infarction: (2) Occlusive coronary artery disease: (3) Acute kidney injury: (4) Acute hyperactive delirium due to another medical condition: Plan The patient is an 84-year-old woman admitted with STEMI and underwent PCI, subsequently went into a severe agitated delirium. Delirium resolved. Devel oped CAUTI treated with antibiotics. Feeling very well and ready for discharge home. # STEMI # ischemic cardiomyopathy Underwent coronary angiography on 12/31/2024 with PCI of LAD artery and diagonal branch. Echo: Regional wall motion abnormalities in LAD territory, EF 40-45% Treatment plan: Continue aspirin and Plavix. intolerant of statin therapy. continue metoprolol and losartan consider switch to SNRI as outpatient. she is followed by [facility] cardiology Dr. Fabian, consulted Dr. Granados who saw Yolie in hospital. Counseled on need to continue current meds, especially DAPT, PCSK9 inhibitor planned to start as outpatient. Follow up with Dr. Fabian She had RUE arterial duplex and confirmed small hematoma over right wrist radial access site and no pseudoaneurysm or other acute issues. Hematoma is evolving as expected and flattening out. she has a lot of ecchymosis inner right forearm which is stable and evolving as expected. # CAUTI - UA with pyuria. Had catheter earlier this admission - started ceftriaxone and symptoms resolved. Urine culture growing E. coli and Providencia chin sensitive. Rx keflex x 7 days at discharge # OLIVERIO on CKD Stage 3 OLIVERIO resolved, creatinine levels returned to baseline. # Acute Metabolic Encephalopathy Severe delirium with agitation and combativeness, required Precedex in ICU, following heart cath. Resolved - per granddaughter back to her normal mental status # hypothyroidism - continue levothyroxine low-dose, TSH 9 and free T4 normal. May be euthyroid sick, follow up for repeat TSH in primary care in 4-6 weeks PT/OT cleared for home independent Admission HPI Per Admitting Provider Ms. Schmid is an 84-year-old female whose active medical conditions include hypertension, hyperlipidemia, coronary atherosclerotic disease with previous myocardial infarction, large hiatal hernia among other chronic medical conditions who presented to the [facility] on 12/31 due to persistent substernal chest discomfort. Her initial chest pain began on 12/29 during activity, which quickly resolved. Beginning on the day of presentation, she was performing her usual daily activities when she had sudden recurrence of her chest pain similar to what she had experienced on 12/29 and has waxed and waned since this morning. She denies any associated jaw pain or shoulder pain. She does endorse some dyspnea with exertion but denies any resting shortness of breath, orthopnea, platypnea, pleuritic chest pain, palpitations, nausea, vomiting. She states this is significantly different from her previous heart attack which was far less painful than her current circumstance. Discharge Exam General Appearance: Normal. Vital signs: Reviewed past 24h vital signs in EMR, unremarkable. Exam unchanged 01/06: HEENT: Within normal limits. Respiratory: Lungs clear bilaterally, nonlabored breathing. Cardiovascular: Heart regular, no murmurs, rubs, or gallops. Gastrointestinal: Abdomen soft, nontender, nondistended. Extremities: Lower extremities warm, well perfused, no edema. Skin: Significant ecchymosis along right forearm with 2.5 cm hematoma on inner wrist, flattening out as expected. unchanged Neurological: AOx4, normal speech and mentation, gannon x 4. Psychiatric: Normal. Discharge Plan Discharge Items Patient Disposition: Home - Self-Care Reason For Visit: STEMI Discharge Diagnosis: STEMI, CAUTI Condition on Discharge: Good Activity: Per Instructions section Lifting: No more than 5 pounds Lifting Comment: avoid lifting anything heavy with right arm for ten days Non-emergency contact: Primary Care Provider and Motor Analyst Call non-emergency contact if: you have any medication questions and your symptoms worsen Follow-up/Referrals: Karen Vega MD [Primary Care Provider] - Nicolás Fabian DO [Physician] - Diet: Heart Healthy Addtl Attending Provider Instructions: You were treated for a heart attack (a serious type called STEMI) You had coronary angiography AKA "heart cath" and stent(s) were placed to open your heart artery It is critical to continue taking BOTH aspirin and plavix for at least a year to keep the stent(s) open. Stopping either of these early could result in a sev ere heart attack. They should only be stopped or held in an emergency by a physician or by your consulting project director. Additional medications for heart attack: metoprolol to strengthen your heart muscle, slows your heart rate and controls blood pressure medicine to lower your cholesterol: injection type medicine will be arranged by your consulting project director because you are intolerant of "statins" losartan to relax the arteries and make things easier on your heart, controls blood pressure You have a urinary tract infection from common bacteria, they are sensitive to common antibiotics -take antibiotic (cephalexin) until it runs out Hold the curcumin, tangerine, and any other supplements not on your discharge med list. Seymour-3, B-vitamins, vitamin D, and Co-Q are okay to keep taking. Take a bag full of all your supplements to your doctor's appointment so that they can be checked for harmful side effects or drug interactions. Walking is fine. Avoid heavy exertion until cleared by your consulting project director. Avoid lifting anything heavy with your right arm for 10 days It was a pleasure taking care of you in the hospital, Ana Mantilla MD Pending Studies at Discharge: No (sensitivities on urine culture) Stand-Alone Forms: My [facility] [employer], Smoking Cessation Medications and DC Order Prescriptions: New nitroglycerin [Nitrostat] 0.4 mg Tablet, Sublingual 0.4 mg sublingual Q5M MDD 3 tabs PRN (Reason: chest pain) Qty: 10 0RF metoprolol tartrate 25 mg Tablet 25 mg PO BID Qty: 60 0RF cephalexin 500 mg tablet 500 mg PO BID 7 Days Qty: 14 0RF losartan 25 mg Tablet 25 mg PO QDL Qty: 30 0RF aspirin 81 mg Tablet,Delayed Release (Dr/Ec) 81 mg PO QAM Qty: 0 0RF Rx Instructions: buy OTC polyethylene glycol 3350 [Miralax] 17 gram Powder In Packet 17 g PO DAILY PRNQty: 0 0RF Continued clopidogrel [Plavix] 75 mg tablet 75 mg PO DAILY Qty: 90 3RF levothyroxine 50 mcg tablet 50 mcg PO DAILY Qty: 90 3RF ascorbate calcium (vitamin C) 500 mg tablet 500 mg PO DAILY Patient Comments: 12/31- otc unable to verify mecobalamin (vitamin B12) 500 mcg tablet,chewable 500 mcg PO DAILY Patient Comments: 12/31- otc unable to verify coenzyme Q10 [CoQ-10] 100 mg Capsule 100 mg PO HS Patient Comments: 12/31- otc unable to verify cholecalciferol (vitamin D3) [Vitamin D3] 50 mcg (2,000 unit) capsule 2,000 unit PO QAM Patient Comments: 12/31- otc unable to verify ipratropium bromide 21 mcg (0.03 %) spray,non-aerosol 0 spray intranasal BID Patient Comments: 12/31-last filled 03/08 30 day supply. Original directions: 2 spray intranasal bid Rx Instructions: administer into each nostril MegaRed Seymour-3 Krill Oil 0 mg PO DAILY Patient Comments: 12/31- otc unable to verify Held tangy tangerine 0 mg PO DAILY Hold Instructions: . Patient Comments: 12/31- otc unable to verify Xlkibjst3y 1,000 mg PO DAILY Hold Instructions: . Patient Comments: 12/31- otc unable to verify Discontinued losartan 25 mg Tablet 25 mg PO QDL Discharge Orders: Discharge Order (Routine); Ordered 01/06/25 Ordered By: Ana Morales/Other Patient Handouts: Metoprolol Oral Tablet, Nitroglycerin Fast Acting Dc, Heart Attack Dc Admission Data Admit Date/Time: 12/31/24 13:48 Attending Provider: Ana Mantilla Admit Provider: George Jim Primary Care Provider: Karen Vega Other Providers: Soo Mejía; Mak Landaverde [facility] Stay Data Consultations 12/31/24 13:48 Consult Customer Care Coordinator Routine 12/31/24 14:11 Consult Cardiac Rehabilitation Routine 01/03/25 13:03 Consult Cardiology Routine 01/04/25 14:27 Consult Cardiac Rehabilitation Routine Procedures Performed Operation Date: 12/31/24 13:30 Actual Procedures p Cineradiography w/Routine Exam - Aly Parker MD p Aspiration/PCI w/CHRISTINE for Stemi - Lee De La Rosa MD Diagnostic Imagining Performed 12/31/24 13:13 CL Cath Imgs for PACS use only Stat 01/01/25 15:29 CT head/brain wo con Stat 01/02/25 14:28 MRI Angio Head [MR angio head wo con] Stat 01/05/25 10:33 US arterial duplex UE RT Routine Discharge Instructions Given to Patient (Per Discharging Provider) You were treated for a heart attack (a serious type called STEMI) You had coronary angiography AKA "heart cath" and stent(s) were placed to open your heart artery It is critical to continue taking BOTH aspirin and plavix for at least a year to keep the stent(s) open. Stopping either of these early could result in a severe heart attack. They should only be stopped or held in an emergency by a physician or by your consulting project director. Additional medications for heart attack: metoprolol to strengthen your heart muscle, slows your heart rate and controls blood pressure medicine to lower your cholesterol: injection type medicine will be arranged by your consulting project director because you are intolerant of "statins" losartan to relax the arteries and make things easier on your heart, controls blood pressure You have a urinary tract infection from common bacteria, they are sensitive to common antibiotics -take antibiotic (cephalexin) until it runs out Hold the curcumin, tangerine, and any other supplements not on your discharge med list. Seymour-3, B-vitamins, vitamin D, and Co-Q are okay to keep taking. Take a bag full of all your supplements to your doctor's appointment so that they can be checked for harmful side effects or drug interactions. Walking is fine. Avoid heavy exertion until cleared by your consulting project director. Avoid lifting anything heavy with your right arm for 10 days It was a pleasure taking care of you in the hospital, Ana Mantilla MD Total Time Total Time Spent Total Time Spent (In Minutes): I personally spent: 40 minutes today on clinical care activities including: reviewing chart notes and vital signs examining and counseling the patient writing orders writing prescriptions, discharge instructions documentation Coding Level of Care Code 60940 INP/OBS DISCH >30 MIN Diagnoses Type 1 myocardial infarction I21.9 Occlusive coronary artery disease I25.10 Acute kidney injury N17.9 Acute hyperactive delirium due to another medical condition F05
[2025-01-06 12:42] VITALS: RESP 18; TEMP 98.1; O2SAT 98
[2025-01-06 13:24] VITALS: BP 92/51
[2025-01-06 14:17] VITALS: PULSE 73
--- NOTE | 2025-01-08 06:49 | Coding Query ---
CODING QUERY To promote full compliance with coding requirements relating to patient care, provider participation is requested in all cases of central service supply distributor uncertainty. Please assist us with the question(s) below: Coding Question(s): Pt admitted with OK, cardiac catheterization done. Discharge Summary mentioned a wrist hematoma post procedure. Documentation DS " Right Ultrasound confirmed a small hematoma over right wrist, no pseudoaneurysm. Hematoma is resolving as expected". Please check below the phrase that describes the post catheterizaiton hematoma. Thanks for your help! SHAKA Greer [facility] Physician's Response(s): ___X The right wrist hematoma is a complication of the cardiac catheterization The right wrist hematoma is not a complication of the cardiac catheterization Other: Please document: Principal Diagnosis: "that condition established after study, to be chiefly responsible for occasioning the admission of the patient to the hospital for care." Co-Existing Principal Diagnosis: "when two or more diagnoses equally meet the criteria for principal diagnosis as determined by the circumstances of admission, diagnostic work up, and/or therapy provided, and the Alphabetic Index, Tabular List, or another coding guideline does not provide sequencing direction, any one of the diagnoses may be sequenced first." "When the physician has documented what appears to be a current diagnosis in the body of the record, but has not included the diagnosis in the final diagnostic statement, the physician should be asked whether the diagnosis should be added." (Source [facility] 2 QTR90. p3-4) IVISD
== END 2025-01-06 14:34 | disposition home or self-care (01) | DRG 321 ==
LOC: ED 12:40 → OR 13:25 → SUATTDRO 13:48 → 1E 13:48 → 2S 01-04 21:13